=== PATIENT | female | born 1935 | race Caucasian/White ===

== ENCOUNTER → 2016-02-26 | Outpatient (CLI) | payer OTHER, MEDICARE | LOC: BHFA 11:00 | PROVIDERS: ATTEND Internal Medicine | DX: I48.91 Unspecified atrial fibrillation (principal) ==

== ENCOUNTER 2016-04-27 11:46 | Emergency (ER) | payer OTHER, MEDICARE ==
[2016-04-27 11:58] VITALS: O2SAT 96
--- NOTE | 2016-04-27 13:22 | EDPHY ---
H & P Stated Complaint: inj/wound to r leg won't heal Time Seen by Provider: 04/27/16 13:20 HPI/ROS: CHIEF COMPLAINT: Right leg wound HISTORY OF PRESENT ILLNESS: The patient is an 80-year-old female who presents with a wound on her right lower extremity that is not healing. She initially received the wound on March 24 when she closed the car door on her leg. Her sutures were removed early as the wound showed signs of infection and she was placed on a 10 day course of antibiotics that she finished over a 2 weeks ago. Since then the wound has remained uncomfortable, slightly oozing, with surrounding erythema. No fever, chills, chest pain, shortness of breath, palpitations, vomiting, diarrhea, urinary complaints, headache, lightheadedness. REVIEW OF SYSTEMS: Aside from elements discussed in the HPI, a comprehensive 10-point review of systems was reviewed and is negative. PAST MEDICAL HISTORY: PE, Tana's, atrial fibrillation, partial hysterectomy. SOCIAL HISTORY: . VITAL SIGNS: Reviewed by me GENERAL APPEARANCE: Pleasant, conversant, no distress. FOCUSED EXAM OF right lower extremity: 2 cm x 3 cm healing abrasion on the lateral calf. Thick scab present over the abrasion. Slight purulence along the wound edges. Erythema extending 2-3 cm around the wound edge. No edema. Portions of this note were transcribed by a medical secretary. I personally performed a history, physical exam, medical decision making, and confirmed accuracy of information the transcribed note. Source: Patient Exam Limitations: No limitations - Personal History Current Tetanus/Diphtheria Vaccine: Yes - Medical/Surgical History Hx Asthma: No Hx Chronic Respiratory Disease: No Hx Diabetes: Yes Hx Cardiac Disease: Yes Hx Renal Disease: No Hx Cirrhosis: No Hx Alcoholism: No Hx HIV/AIDS: No Hx Splenectomy or Spleen Trauma: No Other PMH: HYSTERECTOMY, PARTIAL OCCLUSION OF LEFT CAROTID ARTERY, PULMONARY EMBOLISM X2, TANA'S DISEASE, Afib - Social History Smoking Status: Never smoked Constitutional: Initial Vital Signs Temperature (C) 36.3 C 04/27/16 11:55 Heart Rate 100 04/27/16 11:55 Respiratory Rate 20 04/27/16 11:55 Blood Pressure 143/90 H 04/27/16 11:55 O2 Sat (%) 96 04/27/16 11:55 O2 Delivery Mode Room Air Allergies/Adverse Reactions: azithromycin [From Zithromax] Allergy (Severe, Verified 04/27/16 11:55) Hives gluten [Gluten] Allergy (Intermediate, Verified 04/27/16 11:55) Other-Enter Comments lactose [Lactose] Allergy (Intermediate, Verified 04/27/16 11:55) Other-Enter Comments latex [Latex] Allergy (Intermediate, Verified 04/27/16 11:55) Rash Penicillins Allergy (Intermediate, Verified 04/27/16 11:55) Rash codeine Allergy (Verified 04/27/16 11:55) Home Medications: Medication Instructions Recorded Levothyroxine [Synthroid 112 mcg 112 mcg PO HS 07/07/13 (*)] Lovastatin 20 mg PO HS 07/07/13 Warfarin Sodium [Coumadin 1MG (*)] 1 mg PO TUTH@07/07/13 Warfarin Sodium [Coumadin 1MG (*)] 3 mg PO SUTUTHFRSA@07/07/13 Metoprolol Tartrate 25 PO DAILY 08/02/15 Doxycycline Hyclate 100 mg PO BID #20 capsule 04/27/16 Medical Decision Making ED Course/Re-evaluation: Patient placed on doxycycline to cover for any type of treatment resistant skin infection. Discussed Mepilex dressing with the patient who would prefer simple gauze dressing. Patient was referred to the [facility]. Differential Diagnosis: Differential diagnoses for the patient's symptom complex was considered including but not limited to healing wound, low-grade infection, osteomyelitis, venous insufficiency. Departure - Departure Disposition: Home, Routine, Self-Care Clinical Impression: Nonhealing nonsurgical wound Condition: Good Instructions: Chronic Wounds (ED), Acute Wounds (ED) Additional Instructions: Take Doxycycline as prescribed. We have called the [facility] for you today requesting they see you this week. Their phone number is . If you have not heard from them by Thursday afternoon, please call them to set up a follow up appointment. They will be able to follow your souza injury provide treatments to assist you in the healing. Return to the emergency department immediately for fever, red streaking, lethargy, or other serious worsening of condition. Referrals: Vidhi Fenton MD [Primary Care Provider] - As per Instructions [facility] [Clinic] - As per Instructions Prescriptions: Doxycycline Hyclate 100 mg PO BID #20 capsule Report Scribed for: Queta Clemente Report Scribed by: [place] Date of Report: 04/27/16 Time of Report: 13:21
[2016-04-27] MEDS ORDERED: BACITRACIN OINTMENT 1 PACKET TP ONE (13:39)
[2016-04-27 14:04] VITALS: BP 143/91; PULSE 86; RESP 16; TEMP 97.7
== END 2016-04-27 14:03 | disposition home or self-care (01) ==
DX: L98.8 Other specified disorders of the skin and subcutaneous tissue (principal); E11.9 Type 2 diabetes mellitus without complications; Z79.01 Long term (current) use of anticoagulants; Z91.040 Latex allergy status

== ENCOUNTER → 2016-05-08 | Outpatient (CLI) | payer OTHER, MEDICARE | LOC: FIMAGING 15:04 | DX: Z12.31 Encounter for screening mammogram for malignant neoplasm of breast (principal); Z80.3 Family history of malignant neoplasm of breast | CPT/HCPCS: G0202 ==

== ENCOUNTER 2016-06-01 09:29 | Emergency (ER) | payer OTHER, MEDICARE ==
[2016-06-01 09:35] VITALS: RESP 18
--- NOTE | 2016-06-01 09:45 | EDPHY ---
H & P Stated Complaint: CHEST PRESSURE/FELT SAME WITH PRIOR PE Time Seen by Provider: 06/01/16 09:45 - Personal History Current Tetanus/Diphtheria Vaccine: Yes - Medical/Surgical History Hx Asthma: No Hx Chronic Respiratory Disease: No Hx Diabetes: Yes Hx Cardiac Disease: Yes Hx Renal Disease: No Hx Cirrhosis: No Hx Alcoholism: No Hx HIV/AIDS: No Hx Splenectomy or Spleen Trauma: No Other PMH: HYSTERECTOMY, PARTIAL OCCLUSION OF LEFT CAROTID ARTERY, PULMONARY EMBOLISM X2, MARIVEL'S DISEASE, Afib - Social History Smoking Status: Never smoked Constitutional: Initial Vital Signs Temperature (C) 36.3 C 06/01/16 09:32 Heart Rate 90 06/01/16 09:32 Respiratory Rate 18 06/01/16 09:32 Blood Pressure 106/65 06/01/16 09:32 O2 Sat (%) 95 06/01/16 09:32 O2 Delivery Mode Room Air O2 (L/minute) 2 Allergies/Adverse Reactions: azithromycin [From Zithromax] Allergy (Severe, Verified 06/01/16 09:30) Hives gluten [Gluten] Allergy (Intermediate, Verified 06/01/16 09:30) Other-Enter Comments lactose [Lactose] Allergy (Intermediate, Verified 06/01/16 09:30) Other-Enter Comments latex [Latex] Allergy (Intermediate, Verified 06/01/16 09:30) Rash Penicillins Allergy (Intermediate, Verified 06/01/16 09:30) Rash codeine Allergy (Verified 06/01/16 09:30) TAPE Allergy (Uncoded 06/01/16 10:54) Home Medications: Medication Instructions Recorded Levothyroxine [Synthroid 112 mcg 112 mcg PO HS 07/07/13 (*)] Lovastatin 20 mg PO HS 07/07/13 Warfarin Sodium [Coumadin 1MG (*)] 1 mg PO TUTH@07/07/13 Warfarin Sodium [Coumadin 1MG (*)] 3 mg PO SUTUTHFRSA@07/07/13 Metoprolol Tartrate 25 PO DAILY 08/02/15 Furosemide [Lasix 20 MG (*)] 20 mg PO DAILY #3 tab 06/01/16 Medical Decision Making - Diagnostics Imaging: Imaging Impressions Chest X-Ray 06/01/16 10:35 Impression: 1. No acute process. 2. Minimal cardiomegaly and chronic airways disease unchanged. ED Course/Re-evaluation: CHIEF COMPLAINT: Dyspnea, chest pain HISTORY OF PRESENT ILLNESS: The patient is an anticoagulated 80 y/o female arriving with her complaining of difficulty breathing onset last night and chest pressure this morning. She has a history of PEs and reports her symptoms today feel exactly the same as her previous presentation. She does not have a diagnosed clotting disorder and believes they were due once to being sedentary and another time to excessive vomiting. No recent illness, surgery, trauma, or travel. She does have an ongoing deep wound on leg followed by wound care clinic since February this year. REVIEW OF SYSTEMS: A 10 point review of systems was performed and is negative with the exception of the elements mentioned in the history of present illness. PHYSICAL EXAM: HR, BP, O2 Sat, RR. Temp noted General Appearance: Alert, well hydrated, appropriate, and non-toxic appearing. Sitting up, laughing, no respiratory distress. Head: Atraumatic without scalp tenderness or obvious injury Eyes: Pupils equal, round, reactive to light and accommodation, EOMI, no trauma , no injection. Ears: Clear bilaterally, no perforation, normal landmarks Nose: Atraumatic, no rhinorrhea, clear. Throat: There is no erythema or exudates, no lesions, normal tonsils, mucus membranes moist. Neck: Supple, nontender, no lymphadenopathy. Respiratory: No retractions, no distress, no wheezes, and no accessory muscle use. Lungs have rales at bases. Cardiovascular: Regular rate and rhythm, no murmurs, rubs, or gallops. Good capillary refill all extremities. Gastrointestinal: Abdomen is soft, nontender, non-distended, no masses, no rebound, no guarding, no peritoneal signs. Musculoskeletal: Normal active ROM of all extremities, atraumatic. Dressed wound on right leg. Neurological: Alert, appropriate, and interactive. Nonfocal neuro exam. Skin: No rashes, good turgor, no nodules on palpation. Past medical history: PEs and atrial fibrillation - Coumadin Past surgical history: denies cardiac catheterization Family history: noncontributory Social history: , at bedside. DIAGNOSTICS/PROCEDURES/CRITICAL CARE TIME: The 12 lead EKG was interpreted by myself. See hard copy and/or "tracemaster" electronic copy for interpretation. I viewed the images myself on the PACS system. DIFFERENTIAL DIAGNOSIS: The differential diagnosis for the patient's shortness of breath and hypoxemia included but was not limited to pneumonia, myocardial infarction, acute mountain sickness, high altitude pulmonary edema, congestive heart failure, and pulmonary embolus. MEDICAL DECISION MAKING: This is an 80 y/o female with a history of PEs and atrial fibrillation presenting with a 1-day history of chest pressure and dyspnea that feels similar to her previous PEs. She denies systemic symptoms, recent illness, or other obvious precipitating factors. She is active and laughing on exam. She has minor rales at lung bases without focal decrease. Plan for PE rule-out with EKG, IV, and labs including d-dimer, troponin, and BNP. D-dimer and troponin are negative. Her BNP is elevated and her INR is therapeutic, which decreases her risk of emboli further. Combined with rales on lung exam and elevated BNP, this is more likely CHF. I reassessed the patient and discussed these findings. Plan for chest x-ray. Chest x-ray shows cardiomegaly and scoliosis. Reassessed patient. She is resting comfortably with no signs of respiratory distress; she is 97% on room air. I discussed findings with the patient and recommended starting Lasix for probable CHF and following up with her senior core java developer this week. She agrees with plan. Return precautions given. 1115: Consulted with Dr. Baldwin, cardiology. He agrees with my assessment and will see her this week as an outpatient. - Data Points Laboratory Results: Laboratory Results 06/01/16 09:44 06/01/16 09:44 06/01/16 06/01/16 06/01/16 09:44 09:44 09:44 WBC 5.74 10^3/uL 10^3/uL (3.80-9.50) RBC 4.92 10^6/uL 10^6/uL (4.18-5.33) Hgb 15.6 g/dL g/dL (12.6-16.3) Hct 46.7 % % (38.0-47.0) MCV 94.9 fL fL (81.5-99.8) MCH 31.7 pg pg (27.9-34.1) MCHC 33.4 g/dL g/dL (32.4-36.7) RDW 13.4 % % (11.5-15.2) Plt Count 155 10^3/uL 10^3/uL (150-400) MPV 12.4 fL H fL (8.7-11.7) Neut % (Auto) 59.9 % % (39.3-74.2) Lymph % (Auto) 28.4 % % (15.0-45.0) Guthrie % (Auto) 8.0 % % (4.5-13.0) Eos % (Auto) 2.6 % % (0.6-7.6) Baso % (Auto) 0.9 % % (0.3-1.7) Nucleat RBC Rel Count 0.0 % % (0.0-0.2) Absolute Neuts (auto) 3.44 10^3/uL 10^3/uL (1.70-6.50) Absolute Lymphs (auto) 1.63 10^3/uL 10^3/uL (1.00-3.00) Absolute Monos (auto) 0.46 10^3/uL 10^3/uL (0.30-0.80) Absolute Eos (auto) 0.15 10^3/uL 10^3/uL (0.03-0.40) Absolute Basos (auto) 0.05 10^3/uL 10^3/uL (0.02-0.10) Absolute Nucleated RBC 0.00 10^3/uL 10^3/uL (0-0.01) Immature Gran % 0.2 % % (0.0-1.1) Immature Gran # 0.01 10^3/uL 10^3/uL (0.00-0.10) PT 28.4 SEC H SEC (12.0-15.0) INR 2.63 H (0.83-1.16) APTT 34.4 SEC SEC (23.0-38.0) D-Dimer < 0.27 ug/mLFEU ug/mLFEU (0.00-0.50) Sodium 143 mEq/L mEq/L (134-144) Potassium 3.9 mEq/L mEq/L (3.5-5.2) Chloride 105 mEq/L mEq/L (97-110) Carbon Dioxide 28 mEq/l mEq/l (22-31) Anion Gap 10 mEq/L mEq/L (8-16) BUN 20 mg/dL mg/dL (7-23) Creatinine 0.8 mg/dL mg/dL (0.6-1.0) Estimated GFR > 60 Glucose 77 mg/dL mg/dL (70-100) Calcium 9.4 mg/dL mg/dL (8.5-10.4) Troponin I < 0.012 ng/mL ng/mL (0-0.034) NT-Pro-B Natriuret Pep 2070 pg/mL H pg/mL (0-450) Departure - Departure Disposition: Home, Routine, Self-Care Clinical Impression: Congestive heart failure Qualifiers: Congestive heart failure type: unspecified congestive heart failure type Congestive heart failure chronicity: acute Qualified Code(s): I50.9 - Heart failure, unspecified Condition: Good Instructions: Heart Failure (ED) Additional Instructions: 1. Follow up with your senior core java developer this week. 2. Take Lasix as prescribed until directed otherwise by your senior core java developer. 3. Return to the ED for any worsening of condition. Referrals: Vidhi Fenton MD [Primary Care Provider] - As per Instructions Fariba Panda MD [Medical Doctor] - As per Instructions Prescriptions: Furosemide [Lasix 20 MG (*)] 20 mg PO DAILY #3 tab Report Scribed for: Matthieu Gee Report Scribed by: Lila Beaver Date of Report: 06/01/16 Time of Report: 09:58
--- NOTE | 2016-06-01 09:50 | CPEKG ---
Heart Rate: 87 RR Interval: 690 QRSD Interval: 86 QT Interval: 348 QTC Interval: 419 QRS [place]: 85 T Wave [place]: -10 EKG Severity - ABNORMAL ECG - EKG Impression: ATRIAL FIBRILLATION, V-RATE 72-109 EKG Impression: BORDERLINE RIGHT AXIS DEVIATION Electronically Signed By: Claudia Helm 01-Jun-2016 19:40:00
[2016-06-01 10:00] LABS: % IMMATURE GRANULYOCYTES 0.2 % (0.0-1.1); ABSOLUTE IMMATURE GRANULOCYTES 0.01 10^3/uL (0.00-0.10); ADD DIFF? NO; ADD MORPH? NO; ADD SCAN? NO; ATYPICAL LYMPHOCYTE FLAG 0 (0-99); FRAGMENT RBC FLAG 0 (0-99); HEMATOCRIT 46.7 % (38.0-47.0); HEMOGLOBIN 15.6 g/dL (12.6-16.3); LEFT SHIFT FLG 0 (0-99); LIPEMIA HEMOLYSIS FLAG 80 (0-99); MEAN CELL HEMOGLOBIN 31.7 pg (27.9-34.1); MEAN CELL HEMOGLOBIN CONCENTR. 33.4 g/dL (32.4-36.7); MEAN CELL VOLUME 94.9 fL (81.5-99.8); MEAN PLATELET VOLUME 12.4 fL (8.7-11.7); PLATELET CLUMPS FLAG 0 (0-99); PLATELET COUNT 155 10^3/uL (150-400); RED BLOOD CELL COUNT 4.92 10^6/uL (4.18-5.33); RED CELL DISTRIBUTION WIDTH 13.4 % (11.5-15.2)
[2016-06-01 10:10] LABS: ANION GAP 10 mEq/L (8-16); APTT 34.4 SEC (23.0-38.0); CALCIUM 9.4 mg/dL (8.5-10.4); CARBON DIOXIDE 28 mEq/l (22-31); CHLORIDE 105 mEq/L (97-110); CREATININE 0.8 mg/dL (0.6-1.0); GLOMERULAR FILTRATION RATE > 60; GLUCOSE 77 mg/dL (70-100); INR 2.63 (0.83-1.16); POTASSIUM 3.9 mEq/L (3.5-5.2); PROTIME(PATIENT) 28.4 SEC (12.0-15.0); SODIUM 143 mEq/L (134-144)
[2016-06-01 10:22] LABS: TROPONIN I < 0.012 ng/mL (0-0.034)
[2016-06-01 11:46] VITALS: BP 144/92; PULSE 92; TEMP 97.5; O2SAT 97
== END 2016-06-01 11:46 | disposition home or self-care (01) ==
DX: I50.9 Heart failure, unspecified (principal); E11.9 Type 2 diabetes mellitus without complications; Z79.01 Long term (current) use of anticoagulants; Z91.040 Latex allergy status

== ENCOUNTER → 2016-06-11 | Outpatient (CLI) | payer OTHER, MEDICARE | LOC: BHFA 15:30 | PROVIDERS: ATTEND Internal Medicine Cardiovascular Disease | DX: I08.0 Rheumatic disorders of both mitral and aortic valves (principal); I48.91 Unspecified atrial fibrillation ==

== ENCOUNTER → 2016-06-16 | Outpatient (CLI) | payer OTHER, MEDICARE | LOC: BHFA 08:30 | PROVIDERS: ATTEND Internal Medicine Interventional Cardiology | DX: I48.91 Unspecified atrial fibrillation (principal) | CPT/HCPCS: 78452; 93017; A9500 ==

== ENCOUNTER → 2016-07-11 | Outpatient (CLI) | payer OTHER, MEDICARE | LOC: FIMAGING 13:31 | PROVIDERS: ATTEND Family Medicine | DX: R05 Cough (principal) ==

== ENCOUNTER → 2016-08-28 | Outpatient (CLI) | payer OTHER, MEDICARE | LOC: FLAB 13:42 → FIMAGING 13:44 → EDSTATUS 13:44 | PROVIDERS: ATTEND Registered Nurse | DX: I51.7 Cardiomegaly (principal) ==

== ENCOUNTER → 2016-12-31 | Day surgery (SDC) | payer OTHER, MEDICARE ==
[~2016-12-31] MED LIST: LIDO/EPI 1% **for epidural** 30 ML SDV ONE
== END | disposition home or self-care (01) ==
LOC: FIMAGING 12:18
PROVIDERS: ATTEND Radiology Diagnostic Radiology
PROC: 065P3ZZ Destruction of Right Saphenous Vein, Percutaneous Approach (ICD-10-PCS; principal; 2016-12-31)
DX: I83.91 Asymptomatic varicose veins of right lower extremity (principal)

== ENCOUNTER 2017-01-27 08:39 | Inpatient (IN) | payer OTHER, MEDICARE ==
--- NOTE | 2017-01-19 17:11 | GHP ---
[f rep st] PREOP HISTORY AND PHYSICAL Amended report DATE OF ADMISSION: She will be a morning admission for surgery at the hospital on January 27, 2017. PROBLEM: Right knee arthritis. HISTORY OF PRESENT ILLNESS: The patient is an 81-year-old woman admitted for a right total knee arthroplasty. She has had progressive pain in her right knee for the past 2 or 3 years. She has undergone multiple injections with viscosupplementation with diminishing benefits. She is now having consistent severe pain in her knee. It is limiting her activities and function. She has failed nonsurgical treatment. She is admitted for a right total knee arthroplasty. PAST MEDICAL HISTORY: She has a history of atrial fibrillation. She has also had pulmonary emboli on 2 occasions. She is on chronic anticoagulation with Coumadin. Dr. Abraham Baldwin is her product handler. CURRENT MEDICATIONS: 1. Coumadin 1 mg per day alternating with 2 mg every other day. Her most recent INR was 2.5. 2. She is also on lovastatin for cholesterol. 3. Lasix 20 mg per day. 4. She takes eye drops daily for glaucoma. DRUG ALLERGIES: Codeine, penicillin, and Zithromax. SOCIAL HISTORY: She does not smoke cigarettes. She is retired. She is and lives with her . FAMILY HISTORY: Positive for bladder cancer in her mother. PHYSICAL EXAMINATION: GENERAL: She is an alert, healthy-appearing elderly woman. VITAL SIGNS: Height is 5 feet 4 inches. Weight 124 pounds. BMI is 21.3. EYES: The pupils are round and reactive. She has had bilateral cataract surgery with lens implants. MOUTH: Good oral hygiene. CHEST: Clear. HEART: Mildly irregular rhythm. MUSCULOSKELETAL: Exam of her right knee shows a small effusion. Full extension to 110 degrees of flexion. She is tender along the medial joint line. Mild patellofemoral crepitation. Her ligaments are stable. IMAGING STUDIES: Her films show advanced medial compartment degenerative arthritis. She is bone on bone in the medial compartment and has mild varus alignment. IMPRESSION ON ADMISSION: 1. Right knee advanced medial compartment degenerative arthritis with varus deformity. 2. History of pulmonary emboli x2. 3. Treatment for atrial fibrillation. 4. Treatment for elevated cholesterol. PLAN: She will undergo a right total knee arthroplasty. The surgery has been described to her, including the risks, complications, expectations, and recovery time. All her questions have been answered, and she consents to surgery. I have advised her that a small percentage of people do not get a good result with a total knee replacement. I have spoken with Dr. Baldwin. He recommends bridge therapy to cover that period of time when she is off her Coumadin in preparation for her surgery. I will use Lovenox 50 mg twice daily. All her questions have been answered, and she consents to surgery. /[id number]/MODL Add acc# 01/26/17, lakeisha SANDOVAL
--- NOTE | 2017-01-27 08:10 | PDANEPAE ---
ANE History of Present Illness 81 year old female w/ PMHx of Sana Howell (anticoagulated on Warfarin, held 5 days and bridged with lovenox), CAD, MR, TR, documented past CHF, hashimotos and history of PE presents for right total knee arthroplasty. ANE Past Medical History - Cardiovascular History Hx Hypertension: No Hx Arrhythmias: No Hx Chest Pain: No Hx Coronary Artery / Peripheral Vascular Disease: No Hx CHF / Valvular Disease: No Hx Palpitations: No Cardiovascular History Comment: afib. cad. mitral regurg- heart murmur. tricupsid regurgitation. vavlular insufficiency. peripheral venous insufficiency. see's dr inman at [facility] - Pulmonary History Hx COPD: No Hx Asthma/Reactive Airway Disease: No Hx Recent Upper Respiratory Infection: No Hx Oxygen in Use at Home: No Hx Sleep Apnea: No Sleep Apnea Screening Result - Last Documented: Negative Pulmonary History Comment: PNEUMONIA 05/2013. PE X 2 LAST 2002 & 2011 - Neurologic History Hx Cerebrovascular Accident: No Hx Seizures: No Hx Dementia: No Neurologic History Comment: ?TIA VS MIGRAINE 06/2013 - Endocrine History Hx Diabetes: Yes Hypothyroid: Yes Hyperthyroid: No Obesity: no Endocrine History Comment: MARIEVL'S - Renal History Hx Renal Disorders: No - Liver History Hx Hepatic Disorders: No - Neurological & Psychiatric Hx Hx Neurological and Psychiatric Disorders: No - Cancer History Hx Cancer: Yes Cancer History Comment: SKIN - Congenital Disorder History Hx Congenital Disorders: No - GI History GERD: no Hx Gastrointestinal Disorders: Yes Gastrointestinal History Comment: LACTOSE AND GLUTENT INTOL - Other Health History Other Health History: INSOMNIA. CHRONIC FATIQUE RELATED TO PNEUMONIA 2011. GLAUCOMA/MAC DEGENERATION. cataract - Chronic Pain History Chronic Pain: Yes (LT ING HERNIA) - Surgical History Prior Surgeries: HYSTERECTOMY WITH BLADDER SUSPENSION AND REPAIR OF COLON ANE Review of Systems Review of systems is: negative Review of Systems: - Exercise capacity Exercise capacity: >=4 METS METS (RN): 4 METS ANE Patient History - Allergies Allergies/Adverse Reactions: azithromycin [From Zithromax] Allergy (Severe, Verified 12/29/16 16:14) Hives gluten [Gluten] Allergy (Intermediate, Verified 12/29/16 16:14) Other-Enter Comments lactose [Lactose] Allergy (Intermediate, Verified 12/29/16 16:14) Other-Enter Comments latex [Latex] Allergy (Intermediate, Verified 12/29/16 16:14) Rash Penicillins Allergy (Intermediate, Verified 12/29/16 16:14) Rash codeine Allergy (Verified 12/29/16 16:05) she thinks she does- had a reaction one time TAPE Allergy (Uncoded 12/29/16 16:05) all tapes except for paper tape- causes blisters - Home Medications Home medications: home medication list seen and reviewed Home Medications: C/E/Zn/Cu/OM3/DHA/EPA/LUT/ZEAX [Preservision Areds 2 Softgel] 1 cap PO BID 12/22 [Last Taken 2 Weeks Ago ~01/13/17] Furosemide [Lasix 20 MG (*)] 20 mg PO DAILY 12/22/16 [Last Taken 01/24/17] Latanoprost 0.005% [Xalatan 0.005% (*)] 1 drops EACHEYE HS 12/22/16 [Last Taken 01/27/17 08:00] Levothyroxine Sodium 112 mcg PO DAILY 12/22/16 [Last Taken 01/27/17 08:00] Lovastatin 20 mg PO DAILY 12/22/16 [Last Taken 01/26/17 19:00] Warfarin Sodium [Coumadin 1MG (*)] 2 mg PO SUTUTHSA 12/22/16 [Last Taken ] Warfarin Sodium [Coumadin 3MG (*)] 1 mg PO MWF 12/22/16 [Last Taken 01/22/17] Acyclovir [Zovirax 400 mg (*)] 1,200 mg PO ONCE PRN 01/22/17 [Last Taken Unknown ] Cholecalciferol Vit D3 [Vitamin D3 (*)] 1,000 units PO DAILY 01/22/17 [Last Taken 2 Weeks Ago ~01/13/17] Diclofenac Sodium 1% [Voltaren Gel (*)] 1 an TP QID PRN 01/22/17 [Last Taken 2 Weeks Ago ~01/13/17] Herbals/Supplements -Info Only 1 ea PO DAILY 01/22/17 [Last Taken 2 Weeks Ago ~ 01/13/17] Metoprolol Succinate Xr [Toprol Xl 25 mg (*)] 25 mg PO BID 01/22/17 [Last Taken 01/27/17 08:00] - NPO status NPO Status: no food or drink >8 hours - Anes Hx Anes Hx: no prior problems - Smoking Hx Smoking Status: Never smoked Marijuana use: No - Alcohol Use Alcohol Use: Rarely - Family Anes Hx Family Anes Hx: neg - N/A Family Hx Anesthesia Complications: none ANE Labs/Vital Signs - Labs Result Diagrams: 01/27/17 09:20 - Vital Signs Vital Signs: reviewed preoperatively; see RN documention for details Height: 162.56 cm Weight: 54.431 kg ANE Physical Exam - Airway Neck exam: FROM Mallampati Score: Class 2 Mouth exam: normal dental/mouth exam - Pulmonary Pulmonary: no respiratory distress - Cardiovascular Cardiovascular: regular rate and rhythym - ASA Status ASA Status: III ANE Anesthesia Plan Anesthesia Plan: general endotracheal anesthesia, GA w LMA (General Anesthesia as "back-up" plan), MAC, spinal Regional Anesthesia: single shot NB, continuous NB, adductor canal FNB, POPC/PSR Total IV Anesthesia: No
[~2017-01-27 08:39] MED LIST changes: -LIDO/EPI 1% **for epidural** 30 ML SDV ONE; +NS IV ONE; +POVIDONE-IODINE 20 ML in SODIUM CL IRRIG SOLUTION 500 ML IRR ONE; +ROPIVACAINE 0.2% 80 MG, EPINEPHrine 0.2 MG, KETOROLAC TROMETHAMINE 30 MG in BAG 0 ML IU ONE; +TRANEXAMIC ACID IV ONE; +VANCOMYCIN 1 GM VIAL ONE; +VANCOMYCIN 750 MG in D5W 150 ML IV ONE; +VANCOMYCIN PHARMACY TO DOSE MISC ONE; +ceFAZolin 1 GM/5 ML SYR ONE
[2017-01-27] MEDS ORDERED: LR 1,000 ML IV ONE (08:57)
[2017-01-27] MEDS ORDERED: ACETAMINOPHEN 325 MG TAB PO ONE (09:28)
[2017-01-27] MEDS ORDERED: FAMOTIDINE 20 MG TAB PO ONE (09:28)
[2017-01-27] MEDS ORDERED: DEXAMETHASONE 4 MG/ML VIAL IVP ONE (09:28)
--- NOTE | 2017-01-27 09:33 | PDHPUP ---
History & Physical Update H&P update statement: This history and physical update is based on an assessment of the patient which was completed after admission or registration (within 24 hours), but prior to the surgery/procedure. H&P update: H&P reviewed & patient examined, no change in patient's condition since H&P completed
[2017-01-27 09:35] LABS: % IMMATURE GRANULYOCYTES 0.3 % (0.0-1.1); ABSOLUTE IMMATURE GRANULOCYTES 0.02 10^3/uL (0.00-0.10); ADD DIFF? NO; ADD MORPH? NO; ADD SCAN? NO; ATYPICAL LYMPHOCYTE FLAG 20 (0-99); FRAGMENT RBC FLAG 0 (0-99); HEMOGLOBIN 14.3 g/dL (12.6-16.3); LEFT SHIFT FLG 0 (0-99); LIPEMIA HEMOLYSIS FLAG 80 (0-99); MEAN CELL HEMOGLOBIN 31.8 pg (27.9-34.1); MEAN CELL HEMOGLOBIN CONCENTR. 33.3 g/dL (32.4-36.7); MEAN CELL VOLUME 95.6 fL (81.5-99.8); MEAN PLATELET VOLUME 11.8 fL (8.7-11.7); PLATELET CLUMPS FLAG 10 (0-99); PLATELET COUNT 135 10^3/uL (150-400); RED CELL DISTRIBUTION WIDTH 13.8 % (11.5-15.2)
[2017-01-27 09:57] LABS: INR 1.21 (0.83-1.16); PROTIME(PATIENT) 15.5 SEC (12.0-15.0)
[2017-01-27] MEDS ORDERED: MIDAZOLAM 2 MG/2 ML VIAL ONE (10:17)
[2017-01-27] MEDS ORDERED: MIDAZOLAM 2 MG/2 ML VIAL IVP ONE (10:18)
[2017-01-27] MEDS ORDERED: PROPOFOL/EMULSION 500 MG/50 ML BOTTLE IV ONE (10:20)
[2017-01-27] MEDS ORDERED: VANCOMYCIN 1 GM VIAL ONE (10:30)
[2017-01-27] MEDS ORDERED: fentaNYL 100 MCG/2 ML INJ ONE ×2 (10:54→11:09)
[2017-01-27] MEDS ORDERED: LIDOCAINE 2% 5 ML SDV ONE ×3 (11:08→11:11)
[2017-01-27] MEDS ORDERED: ROCURONIUM 50 MG/5 ML VIAL ONE ×2 (11:08→11:11)
[2017-01-27] MEDS ORDERED: ONDANSETRON 4 MG/2 ML VIAL IVP PRN ×2 (11:14→12:23)
[2017-01-27] MEDS ORDERED: NALOXONE HCL 0.4 MG/ML INJ IVP PRN (11:14)
[2017-01-27] MEDS ORDERED: fentaNYL 100 MCG/2 ML INJ IVP PRN (11:14)
[2017-01-27] MEDS ORDERED: OXYCODONE/APAP 5/325 TAB PO PRN (11:14)
[2017-01-27] MEDS ORDERED: LABETALOL HCL 5 MG/ML 20 ML MDV IVP PRN (11:14)
[2017-01-27] MEDS ORDERED: HYDROmorphONE/DILAUDID 1 MG/ML INJ IVP PRN (11:14)
[2017-01-27] MEDS ORDERED: ROPIVACAINE HCL 150 MG/30 ML INJ ONE (11:37)
--- NOTE | 2017-01-27 12:11 | POSTOPPROG ---
Post Op Note Date of Operation: 01/27/17 Surgeon: Kiet Blanchard Clinical Investigator: Annabelle Yousif Anesthesiologist: Dr. Freddy Jackman Anesthesia: GET(General Endotracheal), Other (Specify) Post-op Diagnosis: Right knee arthritis Procedure: Right total knee arthroplasty Inf/Abcess present in the surg proc area at time of surgery?: No EBL: 100-500 (Adductor canal block administered postoperatively.)
[2017-01-27] MEDS ORDERED: PROMETHAZINE HCL 25 MG SUPPR PR PRN (12:23)
[2017-01-27] MEDS ORDERED: METOCLOPRAMIDE 10 MG/2 ML VIAL IVP PRN (12:23)
[2017-01-27] MEDS ORDERED: ONDANSETRON DISINTEGRATING 4 MG TAB PO PRN (12:23)
[2017-01-27] MEDS ORDERED: DIPHENOXYLATE/ATROPINE LOMOTIL 1 TAB PO PRN (12:23)
[2017-01-27] MEDS ORDERED: PROMETHAZINE HCL 25 MG/ML INJ IVP PRN (12:23)
[2017-01-27] MEDS ORDERED: LACTULOSE 20 GM/30 ML UDCUP PO PRN (12:23)
[2017-01-27] MEDS ORDERED: TAPENTADOL HCL 50 MG TAB PO PRN (12:23)
[2017-01-27] MEDS ORDERED: NS 500 ML IV PRN (12:23)
[2017-01-27] MEDS ORDERED: TEMAZEPAM 15 MG CAP PO PRN (12:23)
[2017-01-27] MEDS ORDERED: POLYETHYLENE GLYCOL 3350 17 GM PKT PO PRN (12:23)
[2017-01-27] MEDS ORDERED: MAGNESIUM HYDROXIDE 30 ML UDCUP PO PRN (12:23)
[2017-01-27] MEDS ORDERED: diphenhydrAMINE 25 MG CAP PO PRN (12:23)
[2017-01-27] MEDS ORDERED: BISACODYL 10 MG SUPP PR PRN (12:23)
[2017-01-27] MEDS ORDERED: ACYCLOVIR 400 MG TAB PO PRN (12:29)
[2017-01-27] MEDS ORDERED: LR 1,000 ML IV SCH (12:30)
[2017-01-27] MEDS ORDERED: LABETALOL HCL 5 MG/ML 20 ML MDV ONE (12:56)
--- NOTE | 2017-01-27 14:06 | POSTANESTH ---
Post Anesthetic Evaluation Cardiovascular Status: Normal, Stable, Similar to Pre-Op Cond Respiratory Status: Normal, Stable, Similar to Pre-op Cond. Level of Consciousness/Mental Status: Can Participate in Eval, Alert and Oriented Pain Control: Adequate, Prn Tx Ordered Nausea/Vomiting Control: Adequate, Prn Tx Ordered Complications Possibly Related to Anesthesia: None Noted
[2017-01-27] MEDS ORDERED: KETOROLAC 30 MG/1 ML SDV ONE (14:08)
[2017-01-27] MEDS: KETOROLAC 30 MG/1 ML SDV IVP PRN (14:10)
[2017-01-27] MEDS: traMADol 50 MG TAB PO PRN (15:04)
[2017-01-27] MEDS: CYCLOBENZAPRINE 10 MG TAB PO PRN (15:08)
[2017-01-27] MEDS ORDERED: WARFARIN SODIUM 2 MG TAB PO SCH (16:00)
[2017-01-27] MEDS: ACETAMINOPHEN 325 MG TAB PO SCH (17:34)
[2017-01-27] MEDS: FAMOTIDINE 20 MG TAB PO SCH (20:31)
[2017-01-27] MEDS: METOPROLOL SUCCINATE XR 25 MG TAB PO SCH (20:32)
[2017-01-27] MEDS: SENNOSIDES/DOCUSATE SODIUM TAB PO SCH (20:33)
--- NOTE | 2017-01-27 20:56 | GOP ---
[f rep st] OPERATIVE REPORT DATE OF OPERATION: 01/27/2017 SURGEON: Kiet Blanchard MD NEUROSURGEON: Dr. Blanchard. [employer]ATION TEACHER: RICH Stanton and Lyndon Yousif [facility]. ANESTHESIA: General anesthesia and adductor canal block. ANESTHESIOLOGIST: Aurelio Jackman MD PREOPERATIVE DIAGNOSIS: Right knee degenerative arthritis. POSTOPERATIVE DIAGNOSIS: Right knee degenerative arthritis. PROCEDURE PERFORMED: Right total knee arthroplasty, cemented, Golden and Nephew Journey II, posterior stabilized. FINDINGS: ESTIMATED BLOOD LOSS: Following inflation of the tourniquet was about 100 cc. The sponge and needle count were correct on 2 occasions. While still under general anesthesia, Dr. Jackman performed an adductor canal block. She was then selena kened from anesthesia, transferred to her hospital [facility] and taken to PACU in satisfactory condition . There were no recognized intraoperative complications. Freddy Roberts and Lyndon Yousif acted as surgical assistants. Their assistance was a medical necess ity. DESCRIPTION OF PROCEDURE: The patient was given 1 g of vancomycin preoperatively within 60 minutes o f surgery. She also received IV tranexamic acid at a dose of 10 mg/kg. She was placed on the operat ing room table and Dr. Jackman attempted a spinal anesthetic. This was unsuccessful. She was placed supine and given general anesthesia. A Godoy catheter was not used. She wore a JOEL stocking and SCD on the nonoperative leg. Her right lower extremity was prepped with ChloraPrep from the upper thigh tourniquet to the tips of the toes. It was draped free using sterile sheets, stockinette, and Ioban plastic adhesive drape. Her lower leg was wrapped with compressive Coban. The leg was exsanguinate d with elevation and a 6-inch compressive wrap, and the pneumatic tourniquet was inflated to 250 mmHg . The World Health Organization time-out was performed to verify the correct patient, identity and the correct surgical side and site. The Pike time-out was also performed. The [employer] leg holding device was sterilely attached to the operating room table and used throughout the procedure to help position the knee. A straight midline incision was made centered on the patell a. Subcutaneous tissues were sharply divided, and hemostasis was obtained using electrocautery. A m edial subcutaneous flap was developed, and the capsule and synovium were opened in a medial parapatel lar fashion. Extensive degenerative changes were present in her medial compartment. She was eroded down to subchondral bone. The medial capsule and periosteum were elevated off the rim of the medial tibial plateau all the way around to the posteromedial corner. Her medial collateral ligament was re leased enough to balance the medial side of the knee and correct the mild varus deformity. In order to improve exposure, her patella was prepared 1st. The original thickness of the patella wa s measured. Peripheral osteophytes were removed. I cut a flat surface on the back of the patella. Her patella was sized for a 35 mm resurfacing component. I removed enough bone from the patella such that the remaining bone plus the thickness of the patellar component recreated the original thicknes s of the patella. The composite thickness was 21 mm. The intramedullary alignment guide system was used to set up the distal femoral cut. The distal femu r was cut in 5 degrees of valgus. Because of a 10 degree preoperative flexion contracture, I made a +2 mm cut on the distal femur. The sizing jig was used to determine proper femoral sizing. She was a true size 4 without shifting the jig. The 5-in-1 cutting block was applied, and the anterior and p osterior condylar cuts and chamfer cuts were made. The final jig was used to remove the central port ion of the distal femur to accommodate the posterior stabilized femoral component. I was careful to determine proper rotation by referencing off Whitesides line and other bony landmarks. Each cut was checked for accuracy before and after it was made. The femur was sized for a size 4 posterior stabil ized femoral component. Trial component was tapped securely into place and was an excellent fit. Next, the tibia was prepared. The proximal tibial cut was made using the extramedullary alignment gu jose system. The cut was made in a few degrees of posterior slope. I was careful to achieve proper v arus valgus alignment and proper rotation. The posterior compartment was cleared of meniscal remnant s. Osteophytes were removed from the back of her femoral condyles. I checked the flexion and extens ion gaps, and they were equal, balanced and rectangular. The tibia was sized for a size 3 component. With the trial components in place, I selected a 10 mm polyethylene posterior stabilized tibial ins ert. The knee came to full extension flexed to 125 degrees. The collateral ligaments were stable an d balanced in 90 degrees of flexion and full extension. The trial patellar button was applied, and t racking was checked. Tracking was excellent without any digital pressure. Joint anesthetic cocktail, 40 mL, were injected into the posterior capsule, the periarticular structu res, the quadriceps muscle and tendon areas, and the subcutaneous tissues along the skin edges. A 2n d dose of IV tranexamic acid was given at a dose of 10 mg/kg. The surfaces were prepared for cementing. They were carefully cleaned with the pulsating lavage irri gation and thoroughly dried. The CarboJet device was used to blow dry the cancellous surfaces. A do uble batch of high viscosity methylmethacrylate cement with 2 g of powdered vancomycin added was mixe d. While it was still in a semi-liquid state, all 3 components were cemented in place. Excess cemen t was removed before it hardened. The 10 mm trial tibial insert was re-tried and was the proper thickness. The actual component was in serted locked into place. The knee was thoroughly irrigated 1 final time with a dilute Betadine solu tion. The tourniquet was deflated. Total tourniquet time was 44 minutes. The vastus medialis portion of the extensor mechanism was repaired with a couple of interrupted figur e-of-eight #2 FiberWire sutures. The capsule and synovium were closed 1st with multiple interrupted [id number] PDS sutures, followed by a running #2 barbed Ethicon Stratafix PDO suture. Subcuta neous tissues were closed with a running 0 barbed Ethicon Stratafix Monoderm suture. The skin was cl osed with a running 3-0 barbed Ethicon Stratafix Monoderm subcuticular suture. The skin was sealed w ith 1/2-inch Steri-Strips. The wound was covered with a large water proof Mepilex surgical dressing. A long-leg JOEL stocking and SCD were applied followed by the cooling device. The patient wore a st ocking and SCD on the opposite leg during the procedure. I used a size 4 cemented Oxinium posterior stabilized femoral component, a size 3 cemented tibial bas e plate, a 10 mm posterior stabilized tibial insert and a 35 mm cemented round all-polyethylene resur facing patellar component. /[id number]/MODL
[2017-01-27] MEDS ORDERED: LATANOPROST 0.005% 2.5 ML OPHT DROPS EACHEYE SCH (21:00)
[2017-01-28] MEDS: ACETAMINOPHEN 325 MG TAB PO SCH ×2 (00:12→06:11)
[2017-01-28 03:53] VITALS: RESP 16; O2SAT 94
[2017-01-28 05:12] LABS: HEMOGLOBIN 12.2 g/dL (12.6-16.3)
[2017-01-28] MEDS: traMADol 50 MG TAB PO PRN (08:02)
[2017-01-28] MEDS: FAMOTIDINE 20 MG TAB PO SCH (08:03)
[2017-01-28] MEDS: METOPROLOL SUCCINATE XR 25 MG TAB PO SCH (08:04)
[2017-01-28] MEDS: SENNOSIDES/DOCUSATE SODIUM TAB PO SCH (08:04)
[2017-01-28] MEDS: CYCLOBENZAPRINE 10 MG TAB PO PRN (08:10)
[2017-01-28] MEDS: KETOROLAC 30 MG/1 ML SDV IVP PRN (08:14)
[2017-01-28 08:17] VITALS: BP 131/82; PULSE 95
[2017-01-28 08:29] VITALS: TEMP 98.5
[2017-01-28] MEDS ORDERED: FUROSEMIDE 20 MG TAB PO SCH (09:00)
[2017-01-28] MEDS ORDERED: PRAVASTATIN SODIUM 20 MG TAB PO SCH (09:00)
[2017-01-28] MEDS ORDERED: NON-FORMULARY NEW DRUG (Lovastatin [Lovastatin] 20 MG) PO SCH (09:00)
[2017-01-28] MEDS ORDERED: FERROUS SULFATE 140 MG TAB.ER PO SCH (09:00)
[2017-01-28] MEDS ORDERED: LEVOTHYROXINE 112 MCG TAB PO SCH (09:00)
[2017-01-28] MEDS ORDERED: ENOXAPARIN 40 MG/0.4 ML SYR SC SCH (09:00)
--- NOTE | 2017-01-28 09:37 | SOAPPROG ---
SOAP Progress Note Assessment/Plan: Assessment: POD #1. s/p R TKA Awake, alert, afebrile. Mild pain. Dressing clean and dry. Post op films look good. VSS. H/H ok. Ambulating in room. Lovenox this AM. Plan: D/c to home later today. Cont. lovenox until INR theraputic. 01/28/17 09:35 Objective: Vital Signs Temp Pulse Resp BP Pulse Ox 36.9 C 95 16 131/82 H 94 01/28/17 08:00 01/28/17 08:04 01/28/17 03:52 01/28/17 08:04 01/28/17 08:00 Laboratory Results 01/28/17 04:14 01/27/17 01/28/17 01/29/17 05:59 05:59 05:59 Intake Total 1775 Output Total 100 Balance 1675 PT 15.5 SEC (12.0-15.0) H 01/27/17 09:20 INR 1.21 (0.83-1.16) H 01/27/17 09:20 ICD10 Worksheet Patient Problems: Problems Problem Status Onset Osteoarthritis of right knee Acute Vision abnormalities Acute
--- NOTE | 2017-01-28 11:55 | ASDISCHSUM ---
Discharge Information Plan Status:Home with No Needs Medically Cleared to Leave: Discharge Date:01/28/2017 11:48 AM CM D/C Disposition:Home, Routine, Self-Care ADT D/C Disposition:Home, Routine, Self-Care Projected Discharge Date:01/28/2017 11:48 AM Transportation at D/C: Discharge Delay Reason: Follow-Up Date:01/28/2017 11:48 AM Discharge Slot: Final Diagnosis: Placement Information Patient Contact Information Contact Name:CAMPBELL Relationship: Address:[address] City:[place] Alternate Phone: State/Zip Code:[place] [address] Email: Financial Information Financial Class: Primary Plan Desc:MEDICARE INPATIENT Primary Plan Number:[id number] Secondary Plan Desc:AARP/MDR SUPPLEMENT Secondary Plan Number:[id number] Assessment Information [facility] CM Progress Note CM Note CM Note Notes: [facility]JR pre-call pt independent. PT rec outpatient. Pt medically stable for d/c, no CM d/c needs identified. Date Signed: 01/28/2017 11:54 AM Electronically Signed By:HANG Haynes Intervention Information
--- NOTE | 2017-01-28 19:30 | GDS ---
[f rep st] DISCHARGE SUMMARY ADMISSION DIAGNOSIS: Severe right knee osteoarthritis. DISCHARGE DIAGNOSIS: Severe right knee osteoarthritis. OPERATIONS PERFORMED: Right total knee arthroplasty. POSTOPERATIVE COMPLICATIONS: None. CONDITION ON DISCHARGE: Improved. DESCRIPTION OF HOSPITAL COURSE: The patient was admitted to the hospital on the day of surgery. Her admission white blood cell count was 6.13. H and H were 14.3 and 43.0. The same day under IV sedation and Marcaine spinal anesthesia, as well as general anesthesia, the patient underwent a right total knee arthroplasty. She was treated with multimodal DVT prophylaxis including Leobardo stockings, SCDs, and early mobilization. On the first postoperative day, the patient's H and H were 12.2 and 37.0. She did not require any transfused blood. She was seen by Physical Therapy and made good progress with knee range of motion exercises and ambulation. By the time of discharge, the patient was independent with her walker and afebrile. DISPOSITION: The patient is discharged to her home. She will go directly to outpatient physical therapy. Leobardo stockings x1 week. She has prescriptions at home for tramadol. She may also use Tylenol and Celebrex. The patient is on Coumadin chronically for atrial fibrillation and previous pulmonary emboli. She has been given a prescription for Lovenox to take as bridge therapy until she is therapeutic with her Coumadin. She will get her Coumadin checked in 2 days from now. The patient has a followup appointment in 10 days. She will call the office if she has any problems before then. /[id number]/MODL MTDD
== END 2017-01-28 11:48 | disposition home or self-care (01) | DRG 470 ==
LOC: F3N 08:39
PROVIDERS: ADMIT Orthopaedic Surgery; ATTEND Orthopaedic Surgery
PROC: 0SRC0J9 Replacement of Right Knee Joint with Synthetic Substitute, Cemented, Open Approach (ICD-10-PCS; principal; 2017-01-27 10:15)
DX: M17.11 Unilateral primary osteoarthritis, right knee (principal); I48.91 Unspecified atrial fibrillation; I25.10 Atherosclerotic heart disease of native coronary artery without angina pectoris; G47.00 Insomnia, unspecified; H40.9 Unspecified glaucoma; E78.00 Pure hypercholesterolemia, unspecified; Z86.711 Personal history of pulmonary embolism; Z79.01 Long term (current) use of anticoagulants
CPT/HCPCS: 97110-GP; 97116-GP; 97161-GP; 97165-GO; 97530-GP; C1713; G8978-GP-CJ; G8979-GP-CI; G8980-GP-CI; G8987-GO-CI; G8988-GO-CI; G8989-GO-CI; J0171; J1100; J1650; J1885; J2250; J2704; J2795; J3010; J3370; J3490

== ENCOUNTER 2017-03-11 13:29 | Emergency (ER) | payer OTHER, MEDICARE ==
--- NOTE | 2017-03-11 14:32 | CPEKG ---
Heart Rate: 94 RR Interval: 638 QRSD Interval: 86 QT Interval: 352 QTC Interval: 441 QRS [place]: 90 T Wave [place]: 21 EKG Severity - ABNORMAL ECG - EKG Impression: ATRIAL FIBRILLATION, V-RATE 66-116 EKG Impression: BORDERLINE RIGHT AXIS DEVIATION Electronically Signed By: Genaro Hernandez 11-Mar-2017 16:15:41
--- NOTE | 2017-03-11 15:00 | EDPHY ---
H & P Smoking Status: Never smoked Time Seen by Provider: 03/11/17 14:30 HPI/ROS: Chief complaint. Shortness of breath HPI. 81-year-old female presents with history of being tired for the past 3 days. Slight shortness of breath. History of PE. Aching joints. No chest pain. Slight fever. No cough. No abdominal pain nausea vomiting or diarrhea. Knee replacement January 27. Dark urine. Complains of being thirsty. Otherwise no travel or known exposure to Infectious Disease. Patient is on warfarin. ROS Constitutional. Tired Eyes. no problems with vision ENT. no sore throat, no nasal drainage Cardiovascular. No chest pain Respiratory. Slight shortness of breath without cough Abdominal. no abdominal pain, no nausea/vomiting, no diarrhea . Dark urine MS. no calf pain/swelling, no neck/back pain, no joint pain Skin. no rash Lymph. no swollen glands Neuro. 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 ENT, Mouth: Mucous membranes are moist. Respiratory: There are no retractions, lungs are clear to auscultation. Cardiovascular: Regular rate and rhythm. Gastrointestinal: Abdomen is soft and nontender, no masses, bowel sounds normal. Neurological: Awake and alert, sensory and motor exams grossly normal. Skin: Warm and dry, no rashes. Musculoskeletal: Neck is supple nontender. Extremities symmetrical, full range of motion. Psychiatric: Patient is oriented X 3, there is no agitation. (Genaro Hernandez) Constitutional: Initial Vital Signs Temperature (C) 36.4 C 03/11/17 13:38 Heart Rate 96 03/11/17 13:38 Respiratory Rate 22 H 03/11/17 13:38 Blood Pressure 155/110 H 03/11/17 13:38 O2 Sat (%) 96 03/11/17 13:38 O2 Delivery Mode Room Air Allergies/Adverse Reactions: azithromycin [From Zithromax] Allergy (Severe, Verified 12/29/16 16:14) Hives gluten [Gluten] Allergy (Intermediate, Verified 12/29/16 16:14) Other-Enter Comments lactose [Lactose] Allergy (Intermediate, Verified 12/29/16 16:14) Other-Enter Comments latex [Latex] Allergy (Intermediate, Verified 12/29/16 16:14) Rash Penicillins Allergy (Intermediate, Verified 12/29/16 16:14) Rash codeine Allergy (Verified 12/29/16 16:05) she thinks she does- had a reaction one time TAPE Allergy (Uncoded 12/29/16 16:05) all tapes except for paper tape- causes blisters Home Medications: Medication Instructions Recorded C/E/Zn/Cu/OM3/DHA/EPA/LUT/ZEAX 1 cap PO BID 12/22/16 [Preservision Areds 2 Softgel] Furosemide [Lasix 20 MG (*)] 20 mg PO DAILY 12/22/16 Latanoprost 0.005% [Xalatan 0.005% 1 drops EACHEYE HS 12/22/16 (*)] Levothyroxine Sodium 112 mcg PO DAILY 12/22/16 Lovastatin 20 mg PO DAILY 12/22/16 Warfarin Sodium [Coumadin 1MG (*)] 2 mg PO SUTUTHSA 12/22/16 Warfarin Sodium [Coumadin 3MG (*)] 1 mg PO MWF 12/22/16 Cholecalciferol Vit D3 [Vitamin D3 1,000 units PO DAILY 01/22/17 (*)] Herbals/Supplements -Info Only 1 ea PO DAILY 01/22/17 Metoprolol Succinate Xr [Toprol Xl 25 mg PO BID 01/22/17 25 mg (*)] Acetaminophen [Tylenol 325mg (*)] 650 mg PO Q6HRS tab 01/28/17 Sennosides/Docusate Sodium 1 - 2 tab PO BID tab 01/28/17 [Senokot-S] traMADol [Ultram 50 mg (*)] 50 mg PO Q6HRS PRN tab 01/28/17 Medical Decision Making - Diagnostics EKG Interpretation: EKG interpreted by me shows atrial fibrillation with normal axis. QRS is normal there is no significant ST elevation or depression. The rate is 94. EKG is unchanged from a previous EKG in May 2016 (Genaro Hernandez) Imaging Results: Imaging Impressions Chest X-Ray 03/11/17 15:10 Impression: Suspect low-grade congestive heart failure superimposed upon underlying airways disease. Chest/Thorax CTA 03/11/17 16:27 Impression: 1. No evidence of pulmonary embolus using CT protocol. 2. Previously described small AVMs appear to just represent focal dilatation of peripheral pulmonary arterial branches at bifurcations without evidence of actual AVM. 3. Enlarged right and left atria as well as mild enlargement of the left ventricle. Consider underlying heart failure. 4. Stable disk disease with calcified disk bulges mid and lower thoracic spine. One-view chest x-ray interpreted by me is normal. Possibly mild fluid overload suggestive CHF (Genaro Hernandez) Procedures: IV normal saline, monitor (Genaro Hernandez) Differential Diagnosis: Considered pneumonia, congestive heart failure, acute coronary syndrome, pulmonary embolus, influenza (Genaro Hernandez) Other Provider: 5:20 p.m. I previously spoke with the patient about her D-dimer and we agreed to order a CT scan even though she is therapeutic on her INR she has had [address]. [address] is now back and is reassuring and shows mild edema which is consistent with her lab work and exam. I suggested Lasix and follow up with Dr. Baldwin. The patient is well appearing clinically and this is in line with Dr. Hernandez recommendations. The patient now tells me that she is supposed to be on Lasix but has not been taking it recently because she thought she was dehydrated ever since her knee surgery on January 27. I encouraged her to resume taking and follow up with Dr. Baldwin as previously discussed. She agrees with this. They declined further observation or admission. She does not have any chest pain. She has stable vital signs other than slight hypertension. ( Dash Burris) Care Turn Over: Care to Dr. Burris at 3:45 p.m. (Genaro Hernandez) - Data Points Laboratory Results: Laboratory Results 03/11/17 14:45 03/11/17 14:45 03/11/17 03/11/17 03/11/17 14:45 14:45 14:45 WBC RBC Hgb Hct MCV MCH MCHC RDW Plt Count MPV Neut % (Auto) Lymph % (Auto) Sierra % (Auto) Eos % (Auto) Baso % (Auto) Nucleat RBC Rel Count Absolute Neuts (auto) Absolute Lymphs (auto) Absolute Monos (auto) Absolute Eos (auto) Absolute Basos (auto) Absolute Nucleated RBC Immature Gran % Immature Gran # PT INR D-Dimer Sodium 142 mEq/L mEq/L (135-145) Potassium 3.9 mEq/L mEq/L (3.5-5.2) Chloride 104 mEq/L mEq/L (97-110) Carbon Dioxide 26 mEq/l mEq/l (22-31) Anion Gap 12 mEq/L mEq/L (8-16) BUN 16 mg/dL mg/dL (7-23) Creatinine 0.8 mg/dL mg/dL (0.6-1.0) Estimated GFR > 60 Glucose 92 mg/dL mg/dL (70-100) Calcium 9.5 mg/dL mg/dL (8.5-10.4) Troponin I < 0.012 ng/mL ng/mL (0.000-0.034) NT-Pro-B Natriuret Pep 3470 pg/mL H pg/mL (0-450) Urine Color YELLOW Urine Appearance CLEAR Urine pH 6.0 (5.0-7.5) Ur Specific [place] 1.009 (1.002-1.030) Urine Protein NEGATIVE (NEGATIVE) Urine Ketones NEGATIVE (NEGATIVE) Urine Blood NEGATIVE (NEGATIVE) Urine Nitrate NEGATIVE (NEGATIVE) Urine Bilirubin NEGATIVE (NEGATIVE) Urine Urobilinogen NEGATIVE EU EU (0.2-1.0) Ur Leukocyte Esterase NEGATIVE (NEGATIVE) Urine RBC 1-3 /hpf /hpf (0-3) Urine WBC 1-3 /hpf /hpf (0-3) Ur Epithelial Cells TRACE /lpf /lpf (NONE-1+) Ur Renal Epithelial Cell OCCASIONAL /hpf H /hpf (NONE SEEN) Urine Glucose NEGATIVE (NEGATIVE) Nasal Influenza A PCR NEGATIVE FOR FLU A (NEGATIVE) Nasal Influenza B PCR NEGATIVE FOR FLU B (NEGATIVE) 03/11/17 03/11/17 14:45 14:45 WBC 6.11 10^3/uL 10^3/uL (3.80-9.50) RBC 4.45 10^6/uL 10^6/uL (4.18-5.33) Hgb 14.2 g/dL g/dL (12.6-16.3) Hct 42.8 % % (38.0-47.0) MCV 96.2 fL fL (81.5-99.8) MCH 31.9 pg pg (27.9-34.1) MCHC 33.2 g/dL g/dL (32.4-36.7) RDW 14.6 % % (11.5-15.2) Plt Count 138 10^3/uL L 10^3/uL (150-400) MPV 12.3 fL H fL (8.7-11.7) Neut % (Auto) 67.5 % % (39.3-74.2) Lymph % (Auto) 22.1 % % (15.0-45.0) Sierra % (Auto) 7.5 % % (4.5-13.0) Eos % (Auto) 1.8 % % (0.6-7.6) Baso % (Auto) 0.8 % % (0.3-1.7) Nucleat RBC Rel Count 0.0 % % (0.0-0.2) Absolute Neuts (auto) 4.12 10^3/uL 10^3/uL (1.70-6.50) Absolute Lymphs (auto) 1.35 10^3/uL 10^3/uL (1.00-3.00) Absolute Monos (auto) 0.46 10^3/uL 10^3/uL (0.30-0.80) Absolute Eos (auto) 0.11 10^3/uL 10^3/uL (0.03-0.40) Absolute Basos (auto) 0.05 10^3/uL 10^3/uL (0.02-0.10) Absolute Nucleated RBC 0.00 10^3/uL 10^3/uL (0-0.01) Immature Gran % 0.3 % % (0.0-1.1) Immature Gran # 0.02 10^3/uL 10^3/uL (0.00-0.10) PT 23.6 SEC H SEC (12.0-15.0) INR 2.10 H (0.83-1.16) D-Dimer 1.02 ug/mLFEU H ug/mLFEU (0.00-0.50) Sodium Potassium Chloride Carbon Dioxide Anion Gap BUN Creatinine Estimated GFR Glucose Calcium Troponin I NT-Pro-B Natriuret Pep Urine Color Urine Appearance Urine pH Ur Specific [place] Urine Protein Urine Ketones Urine Blood Urine Nitrate Urine Bilirubin Urine Urobilinogen Ur Leukocyte Esterase Urine RBC Urine WBC Ur Epithelial Cells Ur Renal Epithelial Cell Urine Glucose Nasal Influenza A PCR Nasal Influenza B PCR Medications Given: Discontinued Medications Furosemide (Lasix) 20 mg PO EDNOW ONE Stop: 03/11/17 17:32 Last Admin: 03/11/17 17:47 Dose: Not Given Sodium Chloride (Ns) 1,000 mls @ 0 mls/hr IV ONCE ONE; Wide Open PRN Reason: Protocol Stop: 03/11/17 15:11 Last Admin: 03/11/17 15:23 Dose: 1,000 mls Departure - Departure Disposition: Home, Routine, Self-Care Clinical Impression: Acute exacerbation of congestive heart failure Qualifiers: Congestive heart failure type: unspecified Qualified Code(s): I50.9 - Heart failure, unspecified Hypertension Qualifiers: Hypertension type: essential hypertension Qualified Code(s): I10 - Essential ( primary) hypertension Condition: Good Instructions: Heart Failure (ED), Hypertension (ED) Additional Instructions: Resume the Lasix as we discussed and follow up with Dr. Baldwin in the next couple of days. Return to the emergency department if you feel worse. Referrals: Vidhi Fenton MD [Primary Care Provider] - As per Instructions Jason Baldwin MD [Medical Doctor] - 1-2 days without fail
[2017-03-11] MEDS ORDERED: NS 1,000 ML IV ONE (15:10)
[2017-03-11 15:18] LABS: PLATELET COUNT 138 10^3/uL (150-400)
[2017-03-11 15:34] LABS: INR 2.1 (0.83-1.16); PROTIME(PATIENT) 23.6 SEC (12.0-15.0)
[2017-03-11] MEDS ORDERED: IOPAMIDOL (ISOVUE 370) 100 ML BTL IV ONE (16:31)
[2017-03-11 16:47] VITALS: RESP 18
[2017-03-11] MEDS ORDERED: FUROSEMIDE 20 MG TAB PO ONE (17:31)
[2017-03-11 17:38] VITALS: BP 160/102; PULSE 105; TEMP 98.4; O2SAT 92
== END 2017-03-11 17:48 | disposition home or self-care (01) ==
DX: I50.9 Heart failure, unspecified (principal); I10 Essential (primary) hypertension; E86.9 Volume depletion, unspecified; Z79.01 Long term (current) use of anticoagulants; Z91.040 Latex allergy status
CPT/HCPCS: 71045; 71275; 93005; 96360; 99285; Q9967

== ENCOUNTER → 2017-03-16 | Outpatient (CLI) | payer OTHER, MEDICARE | LOC: BHFA 11:30 | PROVIDERS: ATTEND Internal Medicine Cardiovascular Disease | DX: I48.91 Unspecified atrial fibrillation (principal) ==

== ENCOUNTER → 2017-04-02 | Day surgery (SDC) | payer OTHER, MEDICARE ==
[~2017-04-02] MED LIST changes: +ATROPINE SULFATE 1 MG/10 ML SYR ONE; +BENZOCAINE UNIT DOSE SPRAY HURRICAINE MM ONE; +FLUMAZENIL 0.5 MG/5 ML MDV IVP ONE; +MIDAZOLAM 2 MG/2 ML VIAL IVP ONE; +MIDAZOLAM 2 MG/2 ML VIAL ONE; +NS 500 ML IV ONE; -NS IV ONE; -POVIDONE-IODINE 20 ML in SODIUM CL IRRIG SOLUTION 500 ML IRR ONE; -ROPIVACAINE 0.2% 80 MG, EPINEPHrine 0.2 MG, KETOROLAC TROMETHAMINE 30 MG in BAG 0 ML IU ONE; -TRANEXAMIC ACID IV ONE; -VANCOMYCIN 1 GM VIAL ONE; -VANCOMYCIN 750 MG in D5W 150 ML IV ONE; -VANCOMYCIN PHARMACY TO DOSE MISC ONE; -ceFAZolin 1 GM/5 ML SYR ONE; +fentaNYL 100 MCG/2 ML INJ IVP ONE; +fentaNYL 100 MCG/2 ML INJ ONE
--- NOTE | 2017-04-02 11:31 | PDPROPOC ---
Sedation Plan of Care Sedation Plan of Care: vital signs stable, mental status noted, patient educated of risks, benefits, alternatives, patient can tolerate sedation ASA Classification: ASA 2 Planned drugs: fentanyl, midazolam Mallampati Score: Class 1 Mallampati Reference Image: Patient passed 3-3-2 rule?: Yes
--- NOTE | 2017-04-03 08:18 | ECHO ---
[email or web address] [address] [address] Main: [phone] Fax: Transesophageal Echocardiography Name: TERE KEY MR#: [id number] Study Date: 04/02/2017 Study Time: 11:33 AM Date of : 1935 Age: 81 year(s) Height: ( ) Weight: ( ) BSA: Gender: Female Examination: PARK Indication: Eval Mitral Valve/Aortic Valve, Atrial Fibrillation Image Quality: Contrast: Requested by: Jason Baldwin Heart Rate: Rhythm: Atrial fibrillation BP: / Procedure Staff Tuck Pointer: Seymour Reynoso RDCS Reading Physician: Jason Baldwin Requesting Provider: PARK Exam Details Conclusions: The rhythm is atrial fibrillation. The left ventricle is normal in size. There is moderately reduced LV systolic function with an ejection fraction visually estimated at 35-40% with global hypokinesis. The right ventricle is also normal in size however the RV systolic function also appears to be mildly reduced. There is severe biatrial enlargement. The left atrial appendage is free of thrombus. Intact interatrial septum on color flow 2D imaging and with agitated saline contrast injection. Nonspecific leaflet thickening of the mitral leaflets and aortic leaflets. There is moderate central mitral regurgitation. This appears to be due to a PICC lead displaced and poor leaflet coaptation. There is mild central aortic regurgitation. Mild to moderate tricuspid regurgitation is present. No pericardial effusion is noted. Measurements: Chambers Valvular Assessment AV/MV Valvular Assessment TV/PV Normal Normal Normal Name Value Range Name Value Range Name Value Range LVOTd 1.9 cm 1.9 cm mm AV meanP mmHg ( - ) TR Vmax: 3.18 mm/s ( - ) SHAE (VTI): 1.4 cm ( - ) TR PGmax: 40 mmHg ( - ) AR (PHT): 519 ms ( - ) syst. PAP: 45 mmHg ( - ) MV meanP mmHg ( - ) MVA (Vmax): 1.2 m/s ( - ) Additional Measurements: Valvular Assessment AV/MV Valvular Assessment TV/PV Name Value Name Value Patient: TERE KEY Study Date: 04/02/2017 Page 1 of 2 11:33 AM MV Annulus: 3.1 cm CVP (est.): 5 mmHg MV VTI: 29.80 cm MR Vena Contracta: 0.6 cm MR ERO: 0.130 cm2 MR PISA radius: 7 mm MR Reg. Volume: 21 ml MR Reg. Fraction: 9 % AR Vmax: 4.29 cm/s Findings: Left Ventricle: The rhythm is atrial fibrillation and the EF is estimated at 40%. Right Ventricle: Mildly reduced RV function. Left Atrium: The left atrium is severely dilated. Right Atrium: The right atrium is moderately to severely dilated. Mitral Valve: Mild mitral valve leaflet calcification is present. Moderate mitral valve regurgitation is present. Aortic Valve: The aortic valve is tri-leaflet. Mild aortic valve regurgitation is present. Tricuspid Valve: Moderate tricuspid regurgitation is present. The pulmonary artery pressure is mildly increased. Pulmonic Valve: The pulmonic valve is normal in appearance and function. Aorta: The aorta is normal. Pericardium: No pericardial effusion. l1n (No Signature Object) Patient: TERE KEY Study Date: 04/02/2017 Page 2 of 2 11:33 AM [id number]
== END | disposition home or self-care (01) ==
LOC: FCATH 09:11
PROVIDERS: ATTEND Internal Medicine Cardiovascular Disease
PROC: B245ZZ4 Ultrasonography of Left Heart, Transesophageal (ICD-10-PCS; principal; 2017-04-02)
DX: I34.0 Nonrheumatic mitral (valve) insufficiency (principal); I36.1 Nonrheumatic tricuspid (valve) insufficiency; I48.91 Unspecified atrial fibrillation; R06.09 Other forms of dyspnea; I27.20 Pulmonary hypertension, unspecified; I50.9 Heart failure, unspecified; I10 Essential (primary) hypertension; I77.9 Disorder of arteries and arterioles, unspecified; E03.9 Hypothyroidism, unspecified; Z79.01 Long term (current) use of anticoagulants; Z96.651 Presence of right artificial knee joint; Z82.49 Family history of ischemic heart disease and other diseases of the circulatory system; Z88.0 Allergy status to penicillin; Z88.2 Allergy status to sulfonamides
CPT/HCPCS: J0461; J2250; J3010

== ENCOUNTER 2017-07-28 16:23 | Emergency (ER) | payer OTHER, MEDICARE ==
--- NOTE | 2017-07-28 17:54 | EDPHY ---
H & P Stated Complaint: felt pop in back of l knee getting up from chair on thursday Time Seen by Provider: 07/28/17 16:35 HPI/ROS: Chief complaint: Pain behind left knee History of present illness: This is an 81-year-old female who presents to the emergency department for pain behind her left knee. She states she has had discomfort for the last few days that has worsened. She denies associated signs or symptoms including no history of trauma, no abnormal coolness or paresthesias in the leg, no skin lesions. No other complaints. - Personal History Current Tetanus Diphtheria and Acellular Pertussis (TDAP): Yes - Medical/Surgical History Hx Asthma: No Hx Chronic Respiratory Disease: No Hx Diabetes: No Hx Cardiac Disease: Yes Hx Renal Disease: No Hx Cirrhosis: No Hx Alcoholism: No Hx HIV/AIDS: No Hx Splenectomy or Spleen Trauma: No Other PMH: HYSTERECTOMY, PARTIAL OCCLUSION OF LEFT CAROTID ARTERY, PULMONARY EMBOLISM X2, MARIVEL'S DISEASE, Afib, HSV - Social History Smoking Status: Never smoked - Physical Exam Exam: General: Alert, nontoxic Skin: No abnormal lesions to the left leg Musculoskeletal: Edema behind the left knee. She is flexing extending it well. The rest the leg is unremarkable. Vascular: DP and PT pulses 2+. Neurologic: Sensation intact throughout the left leg. Constitutional: Initial Vital Signs Temperature (C) 36.3 C 07/28/17 16:26 Heart Rate 79 07/28/17 16:26 Respiratory Rate 17 07/28/17 16:26 Blood Pressure 135/83 H 07/28/17 16:26 O2 Sat (%) 98 07/28/17 16:26 O2 Delivery Mode Room Air Allergies/Adverse Reactions: azithromycin [From Zithromax] Allergy (Severe, Verified 07/28/17 16:24) Hives gluten [Gluten] Allergy (Intermediate, Verified 07/28/17 16:24) Other-Enter Comments lactose [Lactose] Allergy (Intermediate, Verified 07/28/17 16:24) Other-Enter Comments latex [Latex] Allergy (Intermediate, Verified 07/28/17 16:24) Rash Penicillins Allergy (Intermediate, Verified 07/28/17 16:24) Rash codeine Allergy (Verified 07/28/17 16:24) she thinks she does- had a reaction one time TAPE Allergy (Uncoded 12/29/16 16:05) all tapes except for paper tape- causes blisters Home Medications: Medication Instructions Recorded C/E/Zn/Cu/OM3/DHA/EPA/LUT/ZEAX 1 cap PO BID 12/22/16 [Preservision Areds 2 Softgel] Furosemide [Lasix 20 MG (*)] 20 mg PO DAILY 12/22/16 Latanoprost 0.005% [Xalatan 0.005% 1 drops EACHEYE HS 12/22/16 (*)] Levothyroxine Sodium 112 mcg PO DAILY 12/22/16 Lovastatin 20 mg PO DAILY 12/22/16 Warfarin Sodium [Coumadin 1MG (*)] 2 mg PO SUTUTHSA 12/22/16 Warfarin Sodium [Coumadin 3MG (*)] 1 mg PO MWF 12/22/16 Cholecalciferol Vit D3 [Vitamin D3 1,000 units PO DAILY 01/22/17 (*)] Herbals/Supplements -Info Only 1 ea PO DAILY 01/22/17 Metoprolol Succinate Xr [Toprol Xl 25 mg PO BID 01/22/17 25 mg (*)] Acetaminophen [Tylenol 325mg (*)] 650 mg PO Q6HRS tab 01/28/17 Medical Decision Making - Diagnostics Imaging Results: Imaging Impressions Extremity Venous Study 07/28/17 16:51 Impression: 1. No deep vein thrombosis . 2. Donovan's cyst. Results called and discussed with ZIA Velásquez, at 07/28/2017 17:47 Imaging: Discussed imaging studies w/ call or contact centre team leader Radiologist ED Course/Re-evaluation: Patient seen under the supervision of my secondary supervising physician Dr. Steve Villa. Patient presents with pain and swelling behind her left knee. Ultrasound confirms a Donovan's cyst. No other significant findings. The leg is neurovascularly intact. She is discharged home to follow up with her primary care doctor for recheck. Return precautions given. Differential Diagnosis: Included but not limited to Donovan cyst, DVT, superficial thrombophlebitis Departure - Departure Disposition: Home, Routine, Self-Care Clinical Impression: Bakers cyst Qualifiers: Laterality: left Qualified Code(s): M71.22 - Synovial cyst of popliteal space [ Donovan], left knee Condition: Good Instructions: Bakers Cyst (ED) Additional Instructions: Follow-up with your primary care doctor for recheck this week If symptoms worsen or new symptoms develop return to the emergency room for recheck Referrals: Vidhi Fenton MD [Primary Care Provider] - As per Instructions
[2017-07-28 18:21] VITALS: BP 128/76
== END 2017-07-28 18:20 | disposition home or self-care (01) ==
DX: M71.22 Synovial cyst of popliteal space [Baker], left knee (principal); Z79.01 Long term (current) use of anticoagulants; Z91.040 Latex allergy status

== ENCOUNTER 2017-11-06 09:58 | Inpatient (IN) | payer OTHER, MEDICARE ==
[2017-11-06] MEDS ORDERED: ONDANSETRON 4 MG/2 ML VIAL IVP ONE (10:31)
--- NOTE | 2017-11-06 10:36 | EDPHY ---
General Time Seen by Provider: 11/06/17 10:31 Narrative: CHIEF COMPLAINT: Fall, hip pain HISTORY OF PRESENT ILLNESS: Patient presents by EMS and is seen shortly after time arrival. She complains of left hip pain status post fall. She was at the [facility] just prior to arrival. She had finished her exercise and was changing the locker room. She says the bench slipped out from under her, and she fell onto her left hip from standing position. She did not strike her head. Did not lose consciousness. Her only complaint is left hip pain. No pain anywhere else on her person. No nausea or vomiting. No numbness, tingling or weakness. The pain is severe, 10/10. Unable to bear weight. Radiates to the thigh. No other associated complaints or modifying factors NPO status: 7:00 a.m. Full meal with artificial creamer ESTABLISHED ORTHOPEDIST: Dr. Blanchard REVIEW OF SYSTEMS: Ten systems reviewed and are negative unless otherwise noted in the HPI PAST MEDICAL HISTORY: How she was, PE x2, AFib, HSV, arthritis PAST SURGICAL HISTORY: Right knee replacement, hysterectomy SOCIAL HISTORY: Nonsmoker. Lives independently with her spouse FAMILY HISTORY: Noncontributory EXAMINATION: General Appearance: Alert, no distress HEENT: Normocephalic, atraumatic. Pupils equal round reactive. EOM symmetric Neck: Supple nontender. Midline trachea. No crepitus, step-off or deformity. Cardiovascular: Regular rhythm. No murmur. Symmetric DP and PT pulses 2+. Neurological: A&O, light sensory symmetric, ankle and great toe strength symmetric Skin: Warm and dry, no rash Extremities: Significant tenderness in left greater trochanter. Left hip not range due to known fracture on x-ray. Range of motion of the ankle symmetric. There is no evidence of compartment syndrome to the left lower extremity. Range of motion upper extremities unremarkable symmetric. Psychiatric: Mood and affect normal DIFFERENTIAL DIAGNOSES: Including but not limited to fracture, sprain, strain, contusion, hematoma MDM: 10:30 a.m. Mechanical fall just prior to arrival with left hip fracture. No head injury loss conscious. No chest, back or abdominal pain. She was not ambulatory due to the pain. 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 She is in no acute distress. Vital signs stable. I have ordered pain medication and we will consult Orthopedics. She will require admission the hospital. She is awake and alert. No acute distress 10:45 a.m. Case discussed with hospitalist Charla Pearson. Patient will be admitted to Dr. Shah. She is admitted in stable condition. Orthopedics consultation pending. 11:12 a.m. Case discussed with orthopedist Dr. Morales. We discussed the x-rays that he is reviewed. He is requesting vitamin K both p.o. Intramuscular. This is will be ordered pending the return of her coagulopathy studies. 11:20 a.m. Case discussed again with orthopedist. He is requesting TXA IV and has ordered this himself. 11:25 a.m. I have also discussed the case with the admitting physician Dr. Shah. I communicated the request for vitamin K from the surgeon. He will order this, coordinate the administration and monitor coag studies. At this time the patient admitted stable condition. I re-evaluated her. She is resting comfortably in no acute distress. SUPERVISION: Patient was independently examined, but I discussed the case with my secondary supervising physician Dr. Springer. - Diagnostics Imaging Results: Imaging Impressions Hip X-Ray 11/06/17 10:06 Impression: Angulated intertrochanteric proximal femoral fracture with medial displacement of a lesser trochanteric butterfly fragment. - History Smoking Status: Never smoked - Objective Vital Signs: Initial Vital Signs Temperature (C) 97.9 F 11/06/17 10:02 Heart Rate 80 11/06/17 10:02 Respiratory Rate 108 H 11/06/17 10:02 Blood Pressure 169/105 H 11/06/17 10:02 O2 Sat (%) 93 11/06/17 10:02 O2 Delivery Mode Room Air Allergies/Adverse Reactions: azithromycin [From Zithromax] Allergy (Severe, Verified 07/28/17 16:24) Hives gluten [Gluten] Allergy (Intermediate, Verified 07/28/17 16:24) Other-Enter Comments lactose [Lactose] Allergy (Intermediate, Verified 07/28/17 16:24) Other-Enter Comments latex [Latex] Allergy (Intermediate, Verified 07/28/17 16:24) Rash Penicillins Allergy (Intermediate, Verified 07/28/17 16:24) Rash codeine Allergy (Verified 07/28/17 16:24) she thinks she does- had a reaction one time TAPE Allergy (Uncoded 12/29/16 16:05) all tapes except for paper tape- causes blisters Home Medications: Medication Instructions Recorded C/E/Zn/Cu/OM3/DHA/EPA/LUT/ZEAX 1 cap PO BID 12/22/16 [Preservision Areds 2 Softgel] Furosemide [Lasix 20 MG (*)] 20 mg PO DAILY 12/22/16 Latanoprost 0.005% [Xalatan 0.005% 1 drops EACHEYE HS 12/22/16 (*)] Levothyroxine Sodium 112 mcg PO DAILY 12/22/16 Lovastatin 20 mg PO DAILY 12/22/16 Warfarin Sodium [Coumadin 1MG (*)] 2 mg PO SUTUTHSA 12/22/16 Warfarin Sodium [Coumadin 3MG (*)] 1 mg PO MWF 12/22/16 Cholecalciferol Vit D3 [Vitamin D3 1,000 units PO DAILY 01/22/17 (*)] Herbals/Supplements -Info Only 1 ea PO DAILY 01/22/17 Acetaminophen [Tylenol 325mg (*)] 650 mg PO Q6HRS tab 01/28/17 Furosemide [Lasix 40 MG (*)] 40 mg PO Q2D 11/06/17 Losartan Potassium [Cozaar 25 mg 25 mg PO HS 11/06/17 (*)] Metoprolol Succinate Xr [Toprol Xl 75 mg PO BID 11/06/17 50 mg (*)] Laboratory Results: Laboratory Results 11/06/17 10:43 11/06/17 11/06/17 11/06/17 10:43 10:43 10:43 WBC 7.79 10^3/uL 10^3/uL (3.80-9.50) RBC 4.58 10^6/uL 10^6/uL (4.18-5.33) Hgb 13.8 g/dL g/dL (12.6-16.3) Hct 42.7 % % (38.0-47.0) MCV 93.2 fL fL (81.5-99.8) MCH 30.1 pg pg (27.9-34.1) MCHC 32.3 g/dL L g/dL (32.4-36.7) RDW 15.5 % H % (11.5-15.2) Plt Count 169 10^3/uL 10^3/uL (150-400) MPV 11.8 fL H fL (8.7-11.7) Neut % (Auto) 73.6 % % (39.3-74.2) Lymph % (Auto) 15.8 % % (15.0-45.0) [place] % (Auto) 7.7 % % (4.5-13.0) Eos % (Auto) 1.8 % % (0.6-7.6) Baso % (Auto) 0.6 % % (0.3-1.7) Nucleat RBC Rel Count 0.0 % % (0.0-0.2) Absolute Neuts (auto) 5.73 10^3/uL 10^3/uL (1.70-6.50) Absolute Lymphs (auto) 1.23 10^3/uL 10^3/uL (1.00-3.00) Absolute Monos (auto) 0.60 10^3/uL 10^3/uL (0.30-0.80) Absolute Eos (auto) 0.14 10^3/uL 10^3/uL (0.03-0.40) Absolute Basos (auto) 0.05 10^3/uL 10^3/uL (0.02-0.10) Absolute Nucleated RBC 0.00 10^3/uL 10^3/uL (0-0.01) Immature Gran % 0.5 % % (0.0-1.1) Immature Gran # 0.04 10^3/uL 10^3/uL (0.00-0.10) PT Pending INR Pending APTT Pending Sodium Pending Potassium Pending Chloride Pending Carbon Dioxide Pending Anion Gap Pending BUN Pending Creatinine Pending Estimated GFR Pending Glucose Pending Calcium Pending Medications Given: Discontinued Medications Morphine Sulfate (Morphine) 4 mg IVP EDNOW ONE Stop: 11/06/17 10:32 Last Admin: 11/06/17 10:49 Dose: 4 mg Ondansetron HCl (Zofran) 4 mg IVP EDNOW ONE Stop: 11/06/17 10:32 Last Admin: 11/06/17 10:49 Dose: 4 mg Departure - Departure Disposition: [facility] Inpatient Acute Clinical Impression: Warfarin-induced coagulopathy, Chronic a-fib Intertrochanteric fracture of left femur Qualifiers: Encounter type: initial encounter Fracture type: closed Fracture alignment: displaced Qualified Code(s): S72.142A - Displaced intertrochanteric fracture of left femur, initial encounter for closed fracture Condition: Good Referrals: Vidhi Fenton MD [Primary Care Provider] - As per Instructions Kiet Blanchard MD [Medical Doctor] - As per Instructions
[2017-11-06 11:09] LABS: PLATELET COUNT 169 10^3/uL (150-400)
[2017-11-06 11:19] LABS: INR 2.2 (0.83-1.16); PROTIME(PATIENT) 24.5 SEC (12.0-15.0)
[2017-11-06] MEDS ORDERED: TRANEXAMIC ACID 1,000 MG in NS 100 ML IV ONE (11:19)
[2017-11-06] MEDS ORDERED: PHYTONADIONE 10 MG in NS 50 ML IV ONE ×2 (11:23→16:34)
[2017-11-06] MEDS ORDERED: ONDANSETRON 4 MG/2 ML VIAL IVP PRN (12:42)
[2017-11-06] MEDS ORDERED: ACETAMINOPHEN 325 MG TAB PO PRN (12:42)
[2017-11-06] MEDS ORDERED: ONDANSETRON DISINTEGRATING 4 MG TAB PO PRN (12:42)
[2017-11-06] MEDS ORDERED: hydrALAZINE 20 MG/ML VIAL IVP PRN (12:45)
--- NOTE | 2017-11-06 12:51 | PDGENHP ---
History and Physical - Chief Complaint fall - History of Present Illness 82 yo female with mechanical fall with subsequent left hip fracture. She complains of left hip pain status post fall. She was at the [facility] just prior to arrival. She had finished her exercise and was changing the locker room. She says the bench slipped out from under her, and she fell onto her left hip from standing position. She did not strike her head. Did not lose consciousness. Her only complaint is left hip pain. No pain anywhere else on her person. No nausea or vomiting. No numbness, tingling or weakness. The pain is severe, 10/ 10. Unable to bear weight. Radiates to the thigh. No other associated complaints or modifying factors She has hx of Afib, PE, Chronic AC with Warfarin. Afebrile PAST MEDICAL HISTORY: How she was, PE x2, AFib, HSV, arthritis, HTN PAST SURGICAL HISTORY: Right knee replacement, hysterectomy SOCIAL HISTORY: Nonsmoker. Lives independently with her spouse FAMILY HISTORY: Noncontributory EKG: Afib at 87bpm, Left hip XR reviewed History Information - Allergies/Home Medication List Allergies/Adverse Reactions: azithromycin [From Zithromax] Allergy (Severe, Verified 07/28/17 16:24) Hives gluten [Gluten] Allergy (Intermediate, Verified 07/28/17 16:24) Other-Enter Comments lactose [Lactose] Allergy (Intermediate, Verified 07/28/17 16:24) Other-Enter Comments latex [Latex] Allergy (Intermediate, Verified 07/28/17 16:24) Rash Penicillins Allergy (Intermediate, Verified 07/28/17 16:24) Rash codeine Allergy (Verified 07/28/17 16:24) she thinks she does- had a reaction one time TAPE Allergy (Uncoded 12/29/16 16:05) all tapes except for paper tape- causes blisters Home Medications: C/E/Zn/Cu/OM3/DHA/EPA/LUT/ZEAX [Preservision Areds 2 Softgel] 1 cap PO BID 12/22 [Last Taken 11/06/17] Furosemide [Lasix 20 MG (*)] 20 mg PO Q2D 12/22/16 [Last Taken 11/06/17] Latanoprost 0.005% [Xalatan 0.005% (*)] 1 drops EACHEYE HS 12/22/16 [Last Taken 11/05/17] Levothyroxine Sodium 112 mcg PO DAILY 12/22/16 [Last Taken 11/06/17] Lovastatin 20 mg PO HS 12/22/16 [Last Taken 11/05/17] Warfarin Sodium [Coumadin 1MG (*)] 2 mg PO SUTUTHSA 12/22/16 [Last Taken ] Warfarin Sodium [Coumadin 3MG (*)] 1 mg PO MWF 12/22/16 [Last Taken 11/06/17] Cholecalciferol Vit D3 [Vitamin D3 (*)] 1,000 units PO DAILY 01/22/17 [Last Taken 11/06/17] Herbals/Supplements -Info Only 1 ea PO DAILY 01/22/17 [Last Taken 04/01/17] Furosemide [Lasix 40 MG (*)] 40 mg PO Q2D 11/06/17 [Last Taken 11/05/17] Losartan Potassium [Cozaar 25 mg (*)] 25 mg PO HS 11/06/17 [Last Taken 11/05/17] Metoprolol Succinate Xr [Toprol Xl 50 mg (*)] 75 mg PO BID 11/06/17 [Last Taken 11/06/17] I have personally reviewed and updated: medical history, social history - Social History Smoking Status: Never smoked Review of Systems Review of Systems: ROS: 10pt was reviewed & negative except for what was stated in HPI & below Physical Exam Physical Exam: Temp Pulse Resp BP Pulse Ox 36.4 C 84 15 164/91 H 99 11/06/17 12:05 11/06/17 12:05 11/06/17 12:05 11/06/17 12:05 11/06/17 12:05 O2 (L/minute) 2.5 Constitutional: no apparent distress Eyes: PERRL Ears, Nose, Mouth, Throat: moist mucous membranes, hearing normal Cardiovascular: irregularly irregular, No edema Respiratory: no respiratory distress, no rales or rhonchi, clear to auscultation Gastrointestinal: normoactive bowel sounds, soft, non-tender abdomen Skin: warm Neurologic: AAOx3 Psychiatric: interacting appropriately, not anxious, not encephalopathic Lymph, Heme, Immunologic: No petechiae Lab Data & Imaging Review 11/06/17 10:43 11/06/17 10:43 WBC 7.79 10^3/uL (3.80-9.50) 11/06/17 10:43 RBC 4.58 10^6/uL (4.18-5.33) 11/06/17 10:43 Hgb 13.8 g/dL (12.6-16.3) 11/06/17 10:43 Hct 42.7 % (38.0-47.0) 11/06/17 10:43 MCV 93.2 fL (81.5-99.8) 11/06/17 10:43 MCH 30.1 pg (27.9-34.1) 11/06/17 10:43 MCHC 32.3 g/dL (32.4-36.7) L 11/06/17 10:43 RDW 15.5 % (11.5-15.2) H 11/06/17 10:43 Plt Count 169 10^3/uL (150-400) 11/06/17 10:43 MPV 11.8 fL (8.7-11.7) H 11/06/17 10:43 Neut % (Auto) 73.6 % (39.3-74.2) 11/06/17 10:43 Lymph % (Auto) 15.8 % (15.0-45.0) 11/06/17 10:43 [place] % (Auto) 7.7 % (4.5-13.0) 11/06/17 10:43 Eos % (Auto) 1.8 % (0.6-7.6) 11/06/17 10:43 Baso % (Auto) 0.6 % (0.3-1.7) 11/06/17 10:43 Nucleat RBC Rel Count 0.0 % (0.0-0.2) 11/06/17 10:43 Absolute Neuts (auto) 5.73 10^3/uL (1.70-6.50) 11/06/17 10:43 Absolute Lymphs (auto) 1.23 10^3/uL (1.00-3.00) 11/06/17 10:43 Absolute Monos (auto) 0.60 10^3/uL (0.30-0.80) 11/06/17 10:43 Absolute Eos (auto) 0.14 10^3/uL (0.03-0.40) 11/06/17 10:43 Absolute Basos (auto) 0.05 10^3/uL (0.02-0.10) 11/06/17 10:43 Absolute Nucleated RBC 0.00 10^3/uL (0-0.01) 11/06/17 10:43 Immature Gran % 0.5 % (0.0-1.1) 11/06/17 10:43 Immature Gran # 0.04 10^3/uL (0.00-0.10) 11/06/17 10:43 PT 24.5 SEC (12.0-15.0) H 11/06/17 10:43 INR 2.20 (0.83-1.16) H 11/06/17 10:43 APTT 28.6 SEC (23.0-38.0) 11/06/17 10:43 Sodium 143 mEq/L (135-145) 11/06/17 10:43 Potassium 4.3 mEq/L (3.3-5.0) 11/06/17 10:43 Chloride 102 mEq/L (97-110) 11/06/17 10:43 Carbon Dioxide 33 mEq/l (22-31) H 11/06/17 10:43 Anion Gap 8 mEq/L (8-16) 11/06/17 10:43 BUN 18 mg/dL (7-23) 11/06/17 10:43 Creatinine 0.6 mg/dL (0.6-1.0) 11/06/17 10:43 Estimated GFR > 60 11/06/17 10:43 Glucose 113 mg/dL (70-100) H 11/06/17 10:43 Calcium 9.2 mg/dL (8.5-10.4) 11/06/17 10:43 Assessment & Plan Assessment: Intertrochanteric fracture of left femur HTN, elevated due to pain Acute Pain Syndrome Chronic a-fib Warfarin-induced coagulopathy in setting of Chronic AC due to hx of Afib and hx of PE/DVT Plan: Plan for surgery this evening will provided Vitamin K IV. Recheck INR this afternoon and can repeat if needed Transexamic acid already given in the ER cont home meds including BB will hold home Warfarin Hydralazine as needed for elevated bp pain mgmt DNR
--- NOTE | 2017-11-06 15:13 | GCON ---
I was asked to see and evaluate the patient. I personally reviewed the images and will see her later today for a full physical examination. HISTORY OF PRESENT ILLNESS: The patient is a very pleasant 82-year-old woman with a history of knee arthritis and has been treated by Dr. Kiet Blanchard with [facility]. She sustained a ground level fall earlier today, resulting in immediate left hip pain and inability to bear weight on the left leg. She was noted to have a left intertrochanteric fracture, for which I was consulted. IMAGING: Imaging reviewed demonstrates a left intertrochanteric fracture of the left hip. LABORATORY DATA: Lab review demonstrates an INR of 2.2. IMPRESSION: Left hip fracture. PLAN: I have communicated with the emergency room provider that she has an intertrochanteric fractur e that will need open reduction and internal fixation once the INR is appropriate. I requested 5 mg of intravenous vitamin K, as well as 5 mg of oral vitamin K in order to bring her down to a therapeut ic level. We will plan for surgery tomorrow versus Thursday depending on the INR values. Of note, I maycol turner also asked for a gram of tranexamic acid to be administered to minimize blood loss, and I do not believe there are any contraindications to that in this patient. I will be available to see this pat ient later this evening and can be contacted at any point if there are any further questions regardin g her orthopedic care. At this point, DVT prophylaxis is fine with me but should be held tomorrow mo rning in anticipation of anticipated surgery. Please do not hesitate to contact me at any time, . /[id number]/MODL
[2017-11-06 15:23] LABS: INR 1.78 (0.83-1.16); PROTIME(PATIENT) 20.8 SEC (12.0-15.0)
--- NOTE | 2017-11-06 15:46 | PDMN ---
Medical Necessity Medical necessity: [facility] Musculoskeletal Disease: 82 y/o s/p mechanical fall , left hip fx (intertrochanteric fx of left femur), on Coumadin. trauma surg consult, plan for surgery this evening, admin vit K IV, ORIF once INR is appropriate. Hx afib, PEx2, chronic AC w/ warfarin, HTN
[2017-11-06] MEDS ORDERED: ACETAMINOPHEN 325 MG TAB PO SCH (18:00)
[2017-11-06] MEDS: HYDROCODONE/APAP 5/325 TAB PO PRN ×2 (19:48→21:39)
[2017-11-06] MEDS: METOPROLOL SUCCINATE XR 50 MG TAB PO SCH (21:40)
[2017-11-06] MEDS: LATANOPROST 0.005% 2.5 ML OPHT DROPS EACHEYE SCH (21:40)
[2017-11-06] MEDS: PRAVASTATIN SODIUM 20 MG TAB PO SCH (21:40)
[2017-11-07] MEDS: HYDROCODONE/APAP 5/325 TAB PO PRN ×3 (04:00→15:07)
[2017-11-07 05:24] LABS: PLATELET COUNT 147 10^3/uL (150-400)
[2017-11-07 05:31] LABS: INR 1.29 (0.83-1.16); PROTIME(PATIENT) 16.3 SEC (12.0-15.0)
[2017-11-07] MEDS ORDERED: Herbals/Supplements -Info Only PO SCH (09:00)
[2017-11-07] MEDS: LEVOTHYROXINE 112 MCG TAB PO SCH (10:12)
[2017-11-07] MEDS: METOPROLOL SUCCINATE XR 50 MG TAB PO SCH ×2 (10:12→21:45)
[2017-11-07] MEDS: CHOLECALCIFEROL VIT D3 1,000 UNITS TAB PO SCH (10:19)
[2017-11-07] MEDS: D5W 1/2 NS W/ 20 KCl/L 1,000 ML IV SCH (11:10)
--- NOTE | 2017-11-07 12:07 | GPROG ---
I have reviewed Liyah's labs. An INR this morning was drawn at 1.8. I reviewed that and then made a recommendation for a delayed operation. An interim INR has been drawn, which demonstrated an INR of just under 1.3. In light of this, I feel that risk is appropriate for the patient to move forward fo r surgery today. We will more than likely use a short left hip nail. The reason for a short nail be ing to allow for any sort of operation on the knee if the patient needs it in the future. The patien t does report some baseline left knee pain, possibly consistent with arthritis. Again, I have gone o harjeet risks, benefits, and alternatives of surgery with the patient as well as her . I have don e this both last night as well as today to a good extent. I do feel she has a good understanding of risks, benefits, and alternatives of the procedure to be provided. We anticipate the patient will be weightbearing as tolerated and can immediately start taking warfarin after the operation. An interi m use of heparin may be indicated. Of note, the patient states that she has an adverse reaction to L ovenox. /[id number]/MODL
--- NOTE | 2017-11-07 13:20 | HOSPPROG ---
Hospitalist Progress Note Assessment/Plan: Intertrochanteric fracture of left femur HTN, elevated due to pain Acute Pain Syndrome Chronic a-fib Warfarin-induced coagulopathy in setting of Chronic AC due to hx of Afib and hx of PE/DVT -INR yesterday afternoon dropped to 1.8. She was given additional Vitamin K and INR this morning is 1.29 Plan: Awaiting surgical reccs. Hopefully surgery today cont home meds including BB will hold home Warfarin Hydralazine as needed for elevated bp pain mgmt Full code: this is change from admission as she now considers herself full code Subjective: INR is 1.29. Hoping for surgery today. pain is well controlled. Objective: Vital Signs Temp Pulse Resp BP Pulse Ox 36.6 C 75 15 119/61 98 11/07/17 12:00 11/07/17 12:00 11/07/17 12:00 11/07/17 12:00 11/07/17 12:00 Laboratory Results 11/07/17 04:30 11/07/17 04:30 11/06/17 11/07/17 11/08/17 05:59 05:59 05:59 Intake Total 0 Output Total 950 350 Balance -950 -350 PT 16.3 SEC (12.0-15.0) H 11/07/17 04:30 INR 1.29 (0.83-1.16) H 11/07/17 04:30 - Physical Exam Constitutional: no apparent distress Eyes: PERRL Ears, Nose, Mouth, Throat: moist mucous membranes Cardiovascular: irregularly irregular, No edema Respiratory: no respiratory distress, no rales or rhonchi, clear to auscultation Gastrointestinal: normoactive bowel sounds, soft, non-tender abdomen Skin: warm Neurologic: AAOx3 Psychiatric: interacting appropriately, not anxious, not encephalopathic Lymph, Heme, Immunologic: No petechiae ICD10 Worksheet Patient Problems: Problems Problem Status Onset Chronic a-fib Acute Intertrochanteric fracture of left femur Acute Warfarin-induced coagulopathy Acute Bakers cyst Acute Osteoarthritis of right knee Acute Vision abnormalities Acute
--- NOTE | 2017-11-07 16:32 | ASMTCMCOM ---
CM Note CM Note Notes: Pt admitted with a L hip fx after a mechanical fall. She has a hx of afib. Surgery planned, PT/OT evals pending. CM will follow for any d/c needs. Pt lives independently with her . D/C plan: TBD Date Signed: 11/07/2017 04:32 PM Electronically Signed By:HANG Valdez
[2017-11-07] MEDS ORDERED: TRANEXAMIC ACID 1,000 MG in NS 100 ML IV ONE (17:14)
[2017-11-07] MEDS ORDERED: ceFAZolin 2 GM/DEXTROSE 100 ML IV ONE (17:14)
[2017-11-07] MEDS ORDERED: MIDAZOLAM 2 MG/2 ML VIAL IVP ONE (17:17)
--- NOTE | 2017-11-07 17:21 | PDANEPAE ---
ANE History of Present Illness l hip fx ANE Past Medical History - Cardiovascular History Hx Hypertension: Yes Hx Arrhythmias: Yes Hx Chest Pain: No Hx Coronary Artery / Peripheral Vascular Disease: No Hx CHF / Valvular Disease: Yes Hx Palpitations: No Cardiovascular History Comment: afib. cad. mitral regurg- heart murmur. tricupsid regurgitation. vavlular insufficiency. peripheral venous insufficiency. see's dr inman at [facility] - Pulmonary History Hx COPD: No Hx Asthma/Reactive Airway Disease: No Hx Recent Upper Respiratory Infection: No Hx Oxygen in Use at Home: No Hx Sleep Apnea: No Sleep Apnea Screening Result - Last Documented: Positive Pulmonary History Comment: PNEUMONIA 05/2013. PE X 2 LAST 2002 & 2011 - Neurologic History Hx Cerebrovascular Accident: No Hx Seizures: No Hx Dementia: No Neurologic History Comment: ?TIA VS MIGRAINE 06/2013 - Endocrine History Hx Diabetes: No Endocrine History Comment: MARIVEL'S - Renal History Hx Renal Disorders: No - Liver History Hx Hepatic Disorders: No - Neurological & Psychiatric Hx Hx Neurological and Psychiatric Disorders: No - Cancer History Hx Cancer: Yes Cancer History Comment: SKIN - Congenital Disorder History Hx Congenital Disorders: No - GI History Hx Gastrointestinal Disorders: Yes Gastrointestinal History Comment: LACTOSE AND GLUTENT INTOL - Other Health History Other Health History: INSOMNIA. CHRONIC FATIQUE RELATED TO PNEUMONIA 2011. GLAUCOMA/MAC DEGENERATION. cataract - Chronic Pain History Chronic Pain: Yes (LT ING HERNIA) - Surgical History Prior Surgeries: HYSTERECTOMY WITH BLADDER SUSPENSION AND REPAIR OF COLON ANE Review of Systems Review of Systems: ANE Patient History - Allergies Allergies/Adverse Reactions: azithromycin [From Zithromax] Allergy (Severe, Verified 07/28/17 16:24) Hives gluten [Gluten] Allergy (Intermediate, Verified 07/28/17 16:24) Other-Enter Comments lactose [Lactose] Allergy (Intermediate, Verified 07/28/17 16:24) Other-Enter Comments latex [Latex] Allergy (Intermediate, Verified 07/28/17 16:24) Rash Penicillins Allergy (Intermediate, Verified 07/28/17 16:24) Rash codeine Allergy (Verified 07/28/17 16:24) she thinks she does- had a reaction one time TAPE Allergy (Uncoded 12/29/16 16:05) all tapes except for paper tape- causes blisters - Home Medications Home Medications: C/E/Zn/Cu/OM3/DHA/EPA/LUT/ZEAX [Preservision Areds 2 Softgel] 1 cap PO BID 12/22 [Last Taken 11/06/17] Furosemide [Lasix 20 MG (*)] 20 mg PO Q2D 12/22/16 [Last Taken 11/06/17] Latanoprost 0.005% [Xalatan 0.005% (*)] 1 drops EACHEYE HS 12/22/16 [Last Taken 11/05/17] Levothyroxine Sodium 112 mcg PO DAILY 12/22/16 [Last Taken 11/06/17] Lovastatin 20 mg PO HS 12/22/16 [Last Taken 11/05/17] Warfarin Sodium [Coumadin 1MG (*)] 2 mg PO SUTUTHSA 12/22/16 [Last Taken ] Warfarin Sodium [Coumadin 3MG (*)] 1 mg PO MWF 12/22/16 [Last Taken 11/06/17] Cholecalciferol Vit D3 [Vitamin D3 (*)] 1,000 units PO DAILY 01/22/17 [Last Taken 11/06/17] Herbals/Supplements -Info Only 1 ea PO DAILY 01/22/17 [Last Taken 04/01/17] Furosemide [Lasix 40 MG (*)] 40 mg PO Q2D 11/06/17 [Last Taken 11/05/17] Losartan Potassium [Cozaar 25 mg (*)] 25 mg PO HS 11/06/17 [Last Taken 11/05/17] Metoprolol Succinate Xr [Toprol Xl 50 mg (*)] 75 mg PO BID 11/06/17 [Last Taken 11/06/17] - NPO status NPO Since - Liquids (Date): 11/07/17 NPO Since - Liquids (Time): 00:00 NPO Since - Solids (Date): 11/07/17 NPO Since - Solids (Time): 00:00 - Smoking Hx Smoking Status: Never smoked - Family Anes Hx Family Hx Anesthesia Complications: none ANE Labs/Vital Signs - Labs Result Diagrams: 11/07/17 04:30 11/07/17 04:30 - Vital Signs Blood Pressure: 119/61 Heart Rate: 75 Respiratory Rate: 15 O2 Sat (%): 98 Height: 157.48 cm Weight: 53.07 kg ANE Physical Exam - Airway Neck exam: FROM Mallampati Score: Class 2 Mouth exam: normal dental/mouth exam - Pulmonary Pulmonary: no respiratory distress - Cardiovascular Cardiovascular: regular rate and rhythym - ASA Status ASA Status: III, E ANE Anesthesia Plan Anesthesia Plan: general endotracheal anesthesia
[2017-11-07] MEDS ORDERED: fentaNYL 100 MCG/2 ML INJ ONE ×3 (17:23→19:32)
[2017-11-07] MEDS ORDERED: LIDOCAINE 2% 2 ML INJ ONE (17:23)
[2017-11-07] MEDS ORDERED: PROPOFOL 200 MG/20 ML VIAL ONE (17:23)
[2017-11-07] MEDS ORDERED: ROCURONIUM 50 MG/5 ML VIAL ONE (17:23)
[2017-11-07] MEDS ORDERED: HYDROmorphONE/DILAUDID 1 MG/ML INJ IVP PRN (18:34)
[2017-11-07] MEDS ORDERED: oxyCODONE IR 5 MG TAB PO PRN (18:34)
[2017-11-07] MEDS ORDERED: ONDANSETRON 4 MG/2 ML VIAL IVP PRN (18:34)
[2017-11-07] MEDS ORDERED: fentaNYL 100 MCG/2 ML INJ IVP PRN (18:34)
[2017-11-07] MEDS ORDERED: PROMETHAZINE HCL 25 MG/ML INJ IVP PRN (18:34)
[2017-11-07] MEDS ORDERED: NALOXONE HCL 0.4 MG/ML INJ IVP PRN (18:34)
--- NOTE | 2017-11-07 19:15 | POSTANESTH ---
Post Anesthetic Evaluation Cardiovascular Status: Normal, Stable Respiratory Status: Normal, Stable Level of Consciousness/Mental Status: Can Participate in Eval Pain Control: Adequate, Prn Tx Ordered Nausea/Vomiting Control: Adequate, Prn Tx Ordered Complications Possibly Related to Anesthesia: None Noted
--- NOTE | 2017-11-07 19:17 | SUROPNOTE ---
[facility] Operative Report - Surgery Date: 11/07/17 Pre-operative Diagnosis: Lt hip extracapsular hip fracture Post-operative Diagnosis: Same Procedure: Lt hip open reduction and internal fixation with an intramedullary device Surgeon: Nayan Morales MD Pediatrics Teacher: None Anesthesia: General endotracheal anesthesia Findings: As expected Estimated Blood Loss: 200mL Drains: None Specimens: None Complications: None Condition: Transferred to PACU in stable condition. Implants: Synthes Intramedullary nail, size 11mm, 90mm compression screw, 36mm distal interlocking screw Indications: The patient was seen and examined by me in the hospital, and diagnosed with an intertrochanteric hip fx. I have explained all options of treatment for the patient, and the patient has elected to proceed with operative management. I have explained all risks, benefits, and alternatives of the proposed procedure. The risks that we have discussed include , blindness, nerve damage, infection, failure of surgery to alleviate pre-operative symptoms, and possible need for further operation. In addition to the aforementioned procedure, I also discussed with the patient that other procedures may be indicated during the course of surgery. The patient expressed understanding of this. Pre-operative: The proposed incision site was marked in the pre-operative holding area by me. The patient was then taken to the operating room in stable condition. Following smooth induction of general anesthesia, the patient was positioned on a fracture table with all down surfaces well-padded. The contralateral leg was placed into a well-leg suarez with an SCD boot and was well-padded. The patient was then prepped and draped in the usual sterile fashion. Pre-operative antibiotics were administered within one hour of the incision. Tranexamic acid was used to minimize bleeding. A surgical timeout was performed, and all parties involved in the procedure were in agreement on the correct patient, location, and procedure to be performed. Closed reduction: Using fluoroscopic guidance, traction, rotation, and abduction/adduction were used to obtain an acceptable closed reduction of the hip. Once an acceptable reduction was obtained by both AP and lateral radiographs, attention was turned to open reduction. Approach and opening reamer: All of the following steps were confirmed using intermittent fluoroscopic images as needed. A standard lateral approach to the hip was taken. Based on palpable ASIS and greater trochanteric landmarks, a 4cm incision was made in the skin parallel to the femur and ending just proximal to the greater trochanter. The fascia was incised in line with this. Electrocautery was used to coagulate all bleeding vessels. A guidewire was introduced through the abductors and onto the greater trochanter. This was then gently malleted into place to the level of the lesser trochanter. Placement was confirmed to be at the midpoint of the greater trochanter in the lateral plane as well. An opening reamer was then passed into the greater trochanter and all instruments were removed. Nail introduction: A long guidewire was then passed to the mid-femur. The femoral canal was then serially reamed to a size 12.5mm reamer, with an appropriate amount of chatter within the intramedullary canal. A size 11mm x 170mm nail was then malleted into place, and the long guidewire removed. Proximal helical blade: Using the proximal screw locking guide, a triple sleeve was attached and an incision was made through the proposed screw trajectory. The fascia was also incised at this level. A guide wire was then passed through the sleeve and onto the lateral border of the femur. It was advanced on all views to minimize total tip-apex distance. It was then measured and an appropriately-sized 90mm helical blade was selected. An opening reamer was used over the guidewire to create a portal in the lateral femoral cortex and was removed. A reamer was used over the guidewire to create a channel for the lag screw. The lag screw was then advanced over the guidewire and into place in the femoral head. The nail was then locked at the proximal end. Distal interlocking screws: Using a guide, both cortices were reamed and a 36mm screw was placed bicortically. Closure: The field was irrigated copiously with sterile saline. #1 vicryl suture was used to repair the fascia, 2-0 monofilament interrupted sutures were used to repair the dermal layer, and adina were used to close the skin. Sterile island dressings were applied over the surgical incisions. A surgical count was performed before initiation of closure and following the procedure, and all were correct. I was present for the entire procedure. Recovery: The patient was extubated uneventfully in the operating room. The patient was taken to the recovery room in stable condition. Sequential compression devices for VTE prophylaxis were applied to the patients lower extremities, and were ordered to be used while the patient was non-ambulatory. Chemical VTE prophylaxis was started post-operatively. Nayan Morales MD
--- NOTE | 2017-11-07 21:26 | CPEKG ---
Test Reason : OPEN Blood Pressure : / mmHG Vent. Rate : 087 BPM Atrial Rate : 085 BPM P-R Int : 144 ms QRS Dur : 089 ms QT Int : 380 ms P-R-T Axes : 000 079 -15 degrees QTc Int : 457 ms Atrial fibrillation Borderline repol abnrm, inferolateral leads Confirmed by Genaro Hernandez ([id number]) on 11/07/2017 9:25:59 PM Referred By: Confirmed By:Genaro Hernandez
[2017-11-07] MEDS: LATANOPROST 0.005% 2.5 ML OPHT DROPS EACHEYE SCH (21:44)
[2017-11-07] MEDS: PRAVASTATIN SODIUM 20 MG TAB PO SCH (21:46)
[2017-11-08] MEDS: ceFAZolin 2 GM/DEXTROSE 100 ML IV SCH ×2 (00:39→08:27)
[2017-11-08] MEDS: HYDROCODONE/APAP 5/325 TAB PO PRN ×4 (01:51→16:36)
[2017-11-08 05:16] LABS: INR 1.24 (0.83-1.16); PROTIME(PATIENT) 15.8 SEC (12.0-15.0)
[2017-11-08 05:17] LABS: PLATELET COUNT 122 10^3/uL (150-400)
[2017-11-08] MEDS: D5W 1/2 NS W/ 20 KCl/L 1,000 ML IV SCH (05:37)
[2017-11-08] MEDS: LEVOTHYROXINE 112 MCG TAB PO SCH (08:24)
[2017-11-08] MEDS: CHOLECALCIFEROL VIT D3 1,000 UNITS TAB PO SCH (08:24)
[2017-11-08] MEDS: METOPROLOL SUCCINATE XR 50 MG TAB PO SCH ×2 (08:25→23:49)
--- NOTE | 2017-11-08 13:14 | HOSPPROG ---
Hospitalist Progress Note Assessment/Plan: Intertrochanteric fracture of left femur s/p repair HTN, elevated due to pain Acute Pain Syndrome Chronic a-fib Warfarin-induced coagulopathy in setting of Chronic AC due to hx of Afib and hx of PE/DVT Hypotension this morning, transient, resolved -Hgb stable Plan: post op care per surgery, will need rehab ok to stop IVF Heparin for DVT proph I d/w the patients nurse who had called Ortho, [place] to restart warfarin tonight. Will not provide therapeutic bridge. Can likely stop Heparin tomorrow cont home meds including BB Hydralazine as needed for elevated bp pain mgmt Full code: this is change from admission as she now considers herself full code Subjective: no cp or sob. no n/v. some hypotension earlier. feels ok. Objective: Vital Signs Temp Pulse Resp BP Pulse Ox 36.6 C 84 16 125/82 H 97 11/08/17 11:57 11/08/17 11:57 11/08/17 11:57 11/08/17 11:57 11/08/17 11:57 Laboratory Results 11/08/17 11:15 11/08/17 04:20 11/07/17 11/08/17 11/09/17 05:59 05:59 05:59 Intake Total 0 2720 Output Total 950 1900 Balance -950 820 PT 15.8 SEC (12.0-15.0) H 11/08/17 04:20 INR 1.24 (0.83-1.16) H 11/08/17 04:20 - Physical Exam Constitutional: no apparent distress, appears nourished Eyes: PERRL, EOMI Ears, Nose, Mouth, Throat: moist mucous membranes Cardiovascular: irregularly irregular, No edema Respiratory: no respiratory distress, no rales or rhonchi, clear to auscultation Gastrointestinal: normoactive bowel sounds, soft, non-tender abdomen Skin: warm Musculoskeletal: generalized weakness Neurologic: AAOx3 Psychiatric: interacting appropriately, not anxious, not encephalopathic Lymph, Heme, Immunologic: No petechiae ICD10 Worksheet Patient Problems: Problems Problem Status Onset Chronic a-fib Acute Intertrochanteric fracture of left femur Acute Warfarin-induced coagulopathy Acute Bakers cyst Acute Osteoarthritis of right knee Acute Vision abnormalities Acute
[2017-11-08] MEDS ORDERED: ENOXAPARIN 40 MG/0.4 ML SYR SC SCH (13:15)
[2017-11-08] MEDS: HEPARIN 5,000 UNIT/0.5 ML INJ SC SCH ×2 (13:26→21:50)
--- NOTE | 2017-11-08 14:05 | ASMTCMCOM ---
CM Note CM Note Notes: PT/OT recommending inpatient rehab. Eval request put in and msg left for Devorah at [facility]. Date Signed: 11/08/2017 02:04 PM Electronically Signed By:HANG Valdez
[2017-11-08] MEDS ORDERED: WARFARIN SODIUM 2 MG TAB PO SCH (16:00)
[2017-11-08] MEDS ORDERED: LACTULOSE 20 GM/30 ML UDCUP PO PRN (16:22)
[2017-11-08] MEDS ORDERED: BISACODYL 10 MG SUPP PR PRN (16:22)
[2017-11-08] MEDS ORDERED: MAGNESIUM HYDROXIDE 30 ML UDCUP PO PRN (16:22)
[2017-11-08] MEDS: CYCLOBENZAPRINE 10 MG TAB PO SCH ×2 (16:37→21:55)
[2017-11-08] MEDS: NS 1,000 ML IV SCH (18:49)
[2017-11-08] MEDS ORDERED: LOSARTAN POTASSIUM 25 MG TAB PO SCH (21:00)
[2017-11-08] MEDS: SENNOSIDES/DOCUSATE SODIUM TAB PO SCH (21:51)
[2017-11-08] MEDS: PRAVASTATIN SODIUM 20 MG TAB PO SCH (21:55)
[2017-11-08] MEDS: LOSARTAN POTASSIUM 25 MG TAB PO SCH (23:50)
[2017-11-08] MEDS: LATANOPROST 0.005% 2.5 ML OPHT DROPS EACHEYE SCH (23:51)
[2017-11-09 04:46] LABS: INR 1.3 (0.83-1.16); PROTIME(PATIENT) 16.4 SEC (12.0-15.0)
[2017-11-09] MEDS: HEPARIN 5,000 UNIT/0.5 ML INJ SC SCH ×3 (06:05→20:54)
[2017-11-09] MEDS: POLYETHYLENE GLYCOL 3350 17 GM PKT PO PRN (08:23)
[2017-11-09] MEDS: CHOLECALCIFEROL VIT D3 1,000 UNITS TAB PO SCH (08:24)
[2017-11-09] MEDS: METOPROLOL SUCCINATE XR 50 MG TAB PO SCH ×2 (08:26→21:44)
[2017-11-09] MEDS: CYCLOBENZAPRINE 10 MG TAB PO SCH ×3 (08:27→20:56)
[2017-11-09] MEDS: SENNOSIDES/DOCUSATE SODIUM TAB PO SCH ×2 (08:27→20:59)
--- NOTE | 2017-11-09 12:04 | HOSPPROG ---
Hospitalist Progress Note Assessment/Plan: Intertrochanteric fracture of left femur s/p repair HTN, elevated due to pain Acute Pain Syndrome Chronic a-fib Warfarin-induced coagulopathy in setting of Chronic AC due to hx of Afib and hx of PE/DVT Hyponatremia -Hgb stable Plan: post op care per surgery, will need rehab Heparin for DVT proph Warfarin restarted last night. Will not provide therapeutic bridge. D/c Heparin today cont home meds including BB Hydralazine as needed for elevated bp pain mgmt Full code: this is change from admission as she now considers herself full code Dispo: Pending clinical course, will require rehab per OT recs Objective: Vital Signs Temp Pulse Resp BP Pulse Ox 36.4 C 104 H 18 105/58 L 90 L 11/09/17 08:00 11/09/17 08:00 11/09/17 08:00 11/09/17 08:00 11/09/17 08:00 Laboratory Results 11/08/17 11:15 11/09/17 04:19 11/08/17 11/09/17 11/10/17 05:59 05:59 05:59 Intake Total 2720 858 Output Total 1900 1125 300 Balance 820 -267 -300 PT 16.4 SEC (12.0-15.0) H 11/09/17 04:19 INR 1.30 (0.83-1.16) H 11/09/17 04:19 - Physical Exam Constitutional: no apparent distress Eyes: PERRL Ears, Nose, Mouth, Throat: moist mucous membranes Cardiovascular: irregularly irregular Respiratory: no respiratory distress Gastrointestinal: normoactive bowel sounds Genitourinary: no bladder tenderness Skin: warm Musculoskeletal: pain with ROM Neurologic: AAOx3 Psychiatric: interacting appropriately ICD10 Worksheet Patient Problems: Problems Problem Status Onset Chronic a-fib Acute Intertrochanteric fracture of left femur Acute Warfarin-induced coagulopathy Acute Bakers cyst Acute Osteoarthritis of right knee Acute Vision abnormalities Acute
[2017-11-09] MEDS: LEVOTHYROXINE 112 MCG TAB PO SCH (12:44)
[2017-11-09] MEDS: HYDROCODONE/APAP 5/325 TAB PO PRN (12:46)
[2017-11-09] MEDS: NS 1,000 ML IV SCH ×2 (12:53→22:14)
--- NOTE | 2017-11-09 15:00 | ASMTCMCOM ---
CM Note CM Note Notes: Spoke with Devorah at [facility] - they accept and anticipate patient tomorrow. I have notified hospitalist. Case Management will follow. Date Signed: 11/09/2017 02:59 PM Electronically Signed By:Bebe Ward RN
[2017-11-09] MEDS ORDERED: WARFARIN SODIUM 4 MG TAB PO ONE (16:00)
[2017-11-09] MEDS ORDERED: NS 1,000 ML IV ONE (17:30)
[2017-11-09] MEDS: PRAVASTATIN SODIUM 20 MG TAB PO SCH (20:56)
[2017-11-09] MEDS: LATANOPROST 0.005% 2.5 ML OPHT DROPS EACHEYE SCH (21:40)
[2017-11-09] MEDS: LOSARTAN POTASSIUM 25 MG TAB PO SCH (23:09)
[2017-11-10 05:08] LABS: INR 1.67 (0.83-1.16); PROTIME(PATIENT) 19.8 SEC (12.0-15.0)
[2017-11-10] MEDS: HYDROCODONE/APAP 5/325 TAB PO PRN ×2 (05:28→09:36)
[2017-11-10] MEDS: HEPARIN 5,000 UNIT/0.5 ML INJ SC SCH (05:28)
[2017-11-10] MEDS: LEVOTHYROXINE 112 MCG TAB PO SCH (05:35)
[2017-11-10 07:26] VITALS: BP 108/73
[2017-11-10] MEDS ORDERED: FUROSEMIDE 20 MG TAB PO SCH (09:00)
[2017-11-10] MEDS ORDERED: FUROSEMIDE 40 MG TAB PO SCH (09:00)
[2017-11-10] MEDS: CYCLOBENZAPRINE 10 MG TAB PO SCH (09:01)
[2017-11-10] MEDS: CHOLECALCIFEROL VIT D3 1,000 UNITS TAB PO SCH (09:02)
[2017-11-10] MEDS: SENNOSIDES/DOCUSATE SODIUM TAB PO SCH (09:03)
[2017-11-10] MEDS: METOPROLOL SUCCINATE XR 50 MG TAB PO SCH (09:03)
[2017-11-10] MEDS: POLYETHYLENE GLYCOL 3350 17 GM PKT PO PRN (09:08)
[2017-11-10] MEDS ORDERED: CEPACOL LOZENGE PO PRN (09:52)
--- NOTE | 2017-11-10 11:30 | PDDCSUM ---
Discharge Summary Discharge Summary: Date of Admission: 11/06/2017 Date of Discharge: 11/10/2017 Consults: Orthopaedics Procedures: Intertrochanteric fracture of left femur s/p repair Followup: Check INR daily until therapeutic Hospital Course Problem List: Intertrochanteric fracture of left femur s/p repair HTN, elevated due to pain Acute Pain Syndrome Chronic a-fib Warfarin-induced coagulopathy in setting of Chronic AC due to hx of Afib and hx of PE/DVT Hyponatremia Plan: post op care per surgery, will be discharged to IP rehab Warfarin restarted on 11/08. INR to be rechecked daily until therapeutic cont home meds including BB pain mgmt with PRN [place] Time spent on discharge >35 minutes with >50% of time spent on patient education and counseling
--- NOTE | 2017-11-10 11:32 | PDIAF ---
- Diagnosis Diagnosis: L Hip Fracture s/p Repair Code Status: Full Code - Medication Management Discharge Medications: Medications to Continue on Transfer C/E/Zn/Cu/OM3/DHA/EPA/LUT/ZEAX [Preservision Areds 2 Softgel] 1 cap PO BID 12/22 [Last Taken 11/06/17] Furosemide [Lasix 20 MG (*)] 20 mg PO Q2D 12/22/16 [Last Taken 11/06/17] Latanoprost 0.005% [Xalatan 0.005% (*)] 1 drops EACHEYE HS 12/22/16 [Last Taken 11/05/17] Levothyroxine Sodium 112 mcg PO DAILY 12/22/16 [Last Taken 11/06/17] Lovastatin 20 mg PO HS 12/22/16 [Last Taken 11/05/17] Warfarin Sodium [Coumadin 1MG (*)] 2 mg PO SUTUTHSA 12/22/16 [Last Taken ] Warfarin Sodium [Coumadin 3MG (*)] 1 mg PO MWF 12/22/16 [Last Taken 11/06/17] Cholecalciferol Vit D3 [Vitamin D3 (*)] 1,000 units PO DAILY 01/22/17 [Last Taken 11/06/17] Herbals/Supplements -Info Only 1 ea PO DAILY 01/22/17 [Last Taken 04/01/17] Acetaminophen [Tylenol 325mg (*)] 650 mg PO Q6HRS tab 01/28/17 [Last Taken ] Furosemide [Lasix 40 MG (*)] 40 mg PO Q2D 11/06/17 [Last Taken 11/05/17] Losartan Potassium [Cozaar 25 mg (*)] 25 mg PO HS 11/06/17 [Last Taken 11/05/17] Metoprolol Succinate Xr [Toprol Xl 50 mg (*)] 75 mg PO BID 11/06/17 [Last Taken 11/06/17] Hydrocodone/APAP 5/325 [Pollard 5/325 (*)] 1 - 2 tab PO Q4HRS PRN tab 11/10/17 [ Last Taken Unknown] Polyethylene Glycol 3350 [Miralax 17 gm (*)] 17 gm PO DAILY PRN pkt 11/10/17 [ Last Taken Unknown] Sennosides/Docusate Sodium [Senokot-S] 1 - 2 tab PO BID tab 11/10/17 [Last Taken Unknown] Discharge Medications: Refer to the Discharge Home Medication list for PRN reason. - Orders Isolation Type: None Diet Recommendation: no restrictions on diet Diet Texture: Regular Texture Diet - Labs/Radiology PT/INR Date: 11/11/17 (Continue to monitor for therapeutic level 2-3 ) - Follow Up Care Current Providers and Referrals: Vidhi Fenton MD [Primary Care Provider] - As per Instructions Kiet Blanchard MD [Medical Doctor] - As per Instructions
--- NOTE | 2017-11-10 12:28 | ASMTLACE ---
LACE Length of stay for Answers: 4-6 days current admission Acuity / Level of Answers: Yes Care: Did the patient have an inpatient admission? Comorbidities - select Answers: Congestive heart failure all that apply Coronary Artery Disease Opioid dependence / Chronic pain Other Notes: AFib; HTN # of Emergency department Answers: 1-2 visits in the last 6 months Score: 17 Date Signed: 11/10/2017 12:27 PM Electronically Signed By:HANG Haynes
--- NOTE | 2017-11-10 12:29 | ASMTCMCOM ---
CM Note CM Note Notes: Pt medically stable for d/c to [facility] inpatient rehab. Pt and request van transport. Only [facility] has availability, transport arranged for 12:30 and agrees to call prior to pickup to arrange payment. Orders to be obtained via [employer]. Date Signed: 11/10/2017 12:29 PM Electronically Signed By:HANG Haynes
--- NOTE | 2017-11-10 12:52 | PDCONSULT ---
Health Economist Note: I have discussed the patient's plan of care with her hospitalist. Today, she offered no unusual complaints. She has been discharged to a rehab facility. Moving forward, recommdations are as follows: WBAT LLE DVT ppx with warfarin (with maintenance of prior INR goals) f/u with me 2 wks after surgery for staple removal. Andrew
--- NOTE | 2017-11-10 12:57 | GPROG ---
DATE OF SERVICE: 11/08/2017 TIME: 12 p.m. I saw and evaluated the patient at noon on 11/08/2017. SUBJECTIVE: Overall, the patient offers no unusual complaints. She is a little bit lightheaded and has some mild hypotension, which I have discussed with the nurse; however, it appears to be normalizi ng. The patient's pain has been well controlled on an oral regimen. PHYSICAL EXAM: The legs are of equal length and of equal rotation. IMPRESSION: Postoperative day 1 status post left hip trochanteric fixation nail with a short nail. ASSESSMENT AND PLAN: From my perspective, the patient can resume any kind of anticoagulation. If sh e is not therapeutic with Coumadin yet, we will order some heparin 5000 units t.i.d. to start today. I have both ordered and discussed this with the nurse. From my perspective, she is weightbearing as tolerated with a walker for protected weightbearing. She can be discharged whenever she is medicall y cleared by the hospitalist and can see me 2 weeks after the surgery for staple removal. The felicity leal has my office information, which was given to both her and the . /[id number]/MODL
--- NOTE | 2017-11-10 12:57 | GPROG ---
DAILY PROGRESS NOTE DATE OF SERVICE: 11/09/2017 TIME SEEN: 12:00 p.m. Overall, the patient has done well. Her pain is well controlled on oral regimen and she offers no un usual complaints. The pain seems to be getting better over the last couple of days. I have discusse d plan of care with the patient's nurse as well. PHYSICAL EXAM: SKIN: Her dressings are clean, dry, and intact, and left in place. EXTREMITIES: The leg is neurovascularly intact. Exam limited by pain. The legs are of equal length and rotation. IMPRESSION: Postop day 2, status post left hip short titanium trochanteric fixation nail. ASSESSMENT AND PLAN: From my perspective, patient may be discharged at any point when cleared from [facility]. She should be protected weightbearing, and will see me in the office in 2 weeks. I have discussed this with the patient and her as well as the patient's nurse. /[id number]/MODL
--- NOTE | 2017-11-11 14:18 | ASDISCHSUM ---
Discharge Information Plan Status:Inpatient Rehab Medically Cleared to Leave: Discharge Date:11/10/2017 01:19 PM CM D/C Disposition:[facility] IP ADT D/C Disposition:[facility] IP Projected Discharge Date:11/10/2017 11:00 AM Transportation at D/C:Wheelchair Van Discharge Delay Reason: Follow-Up Date:11/10/2017 11:00 AM Discharge Slot: Final Diagnosis: Placement Information Referral Type:Rehabilitation Hospital Referral ID:[id number] Provider Name:[facility] Address 1:[address] Phone Number: Address 2: Fax Number: [facility]:[place] Selection Factors: State:[place] Patient Contact Information Contact Name:CAMPBELL Relationship: Address:[address] City:[place] Alternate Phone: State/Zip Code:[place] [address] Email: Financial Information Financial Class:Medicare Primary Plan Desc:MEDICARE INPATIENT Primary Plan Number:[id number] Secondary Plan Desc:[employer]/MDR SUPPLEMENT Secondary Plan Number:[id number] Assessment Information LACE LACE Length of stay for Answers: 4-6 days current admission Acuity / Level of Answers: Yes Care: Did the patient have an inpatient admission? Comorbidities - select Answers: Congestive heart failure all that apply Coronary Artery Disease Opioid dependence / Chronic pain Other Notes: AFib; HTN # of Emergency department Answers: 1-2 visits in the last 6 months Score: 17 Date Signed: 11/10/2017 12:27 PM Electronically Signed By:HANG Haynes [facility] CM Progress Note CM Note CM Note Notes: Pt admitted with a L hip fx after a mechanical fall. She has a hx of afib. Surgery planned, PT/OT evals pending. CM will follow for any d/c needs. Pt lives independently with her . D/C plan: TBD Date Signed: 11/07/2017 04:32 PM Electronically Signed By:HANG Valdez [facility] CM Progress Note CM Note CM Note Notes: PT/OT recommending inpatient rehab. Eval request put in and msg left for Devorah at [facility]. Date Signed: 11/08/2017 02:04 PM Electronically Signed By:HANG Valdez [facility] CM Progress Note CM Note CM Note Notes: Spoke with Devorah at [facility] - they accept and anticipate patient tomorrow. I have notified hospitalist. Case Management will follow. Date Signed: 11/09/2017 02:59 PM Electronically Signed By:Bebe Ward RN [facility] CM Progress Note CM Note CM Note Notes: Pt medically stable for d/c to [facility] inpatient rehab. Pt and request w[facility] van transport. Only [facility] has availability, transport arranged for 12:30 and agrees to call prior to pickup to arrange payment. Orders to be obtained via [employer]. Date Signed: 11/10/2017 12:29 PM Electronically Signed By:HANG Haynes Intervention Information Intervention Type:*IM-Signed Date of Service:11/10/2017 11:49 AM Patient Type:Inpatient Staff Member:Daphne Cool Hours: Discipline: Severity: Comment:
== END 2017-11-10 13:19 | DRG 481 ==
LOC: EDUNIT# → F3N 11:56
PROVIDERS: ADMIT Family Medicine; ATTEND Internal Medicine
PROC: 0QS706Z Reposition Left Upper Femur with Intramedullary Internal Fixation Device, Open Approach (ICD-10-PCS; principal; 2017-11-07 16:30)
DX: S72.142A Displaced intertrochanteric fracture of left femur, initial encounter for closed fracture (principal); W08.XXXA Fall from other furniture, initial encounter; Y93.E1 Activity, personal bathing and showering; Y92.39 Other specified sports and athletic area as the place of occurrence of the external cause; Y99.8 Other external cause status; E87.1 Hypo-osmolality and hyponatremia; I95.81 Postprocedural hypotension; Z86.711 Personal history of pulmonary embolism; Z79.01 Long term (current) use of anticoagulants; I48.91 Unspecified atrial fibrillation; I10 Essential (primary) hypertension; E78.5 Hyperlipidemia, unspecified; E03.9 Hypothyroidism, unspecified; H40.9 Unspecified glaucoma; Z96.651 Presence of right artificial knee joint
CPT/HCPCS: 96374; 97116-GP; 97161-GP; 97165-GO; 97530-GO; 97530-GP; 97535-GO; C1713; G8978-GP-CK; G8979-GP-CJ; G8980-GP-CJ; G8987-GO-CK; G8988-GO-CI; J0360; J0690; J1644; J2250; J2270; J2405; J2704; J3010; J3430

== ENCOUNTER 2017-11-10 12:55 | Inpatient (IN) | payer OTHER, MEDICARE ==
[2017-11-10] MEDS ORDERED: CEPACOL LOZENGE PO PRN (14:03)
[2017-11-10] MEDS ORDERED: ACETAMINOPHEN 325 MG TAB PO PRN (14:23)
[2017-11-10] MEDS ORDERED: BISACODYL 10 MG SUPP PR PRN (14:26)
--- NOTE | 2017-11-10 15:11 | GHP ---
POST ADMISSION PHYSICIAN EVALUATION AND REHABILITATION TREATMENT PLAN DATE OF ADMISSION: 11/10/2017 DATE OF EVALUATION: 11/10/2017 TIME OF EVALUATION: 1350 REFERRING FACILITY: [facility] REFERRING PHYSICIAN: Dr. Shah IMPAIRMENT GROUP: 8.11 DATE OF ONSET: 11/06/2017 REHABLITATION DIAGNOSIS: Debility, status post left hip intertrochanteric fracture with open reduction/internal fixation. ETIOLOGIC DIAGNOSIS: Unilateral hip fracture. DATE OF SURGERY: 11/07/2017 HISTORY OF PRESENT ILLNESS: This patient fell. It was a mechanical fall from standing. She suffered a left intertrochanteric hip fracture. She had an ORIF with an intramedullary nail done on 11/07/2017. She has atrial fibrillation and a history of pulmonary emboli and was on warfarin. Warfarin was held, and her INR drifted down. She was treated with heparin for several days as her INR was increasing. Since the resumption of warfarin, heparin has not been continued on hospital discharge. She has a history of hypertension and had some elevated blood pressures due to pain. She had hyponatremia in the hospital. She was medically stabilized, participating in therapy, and appropriate for inpatient rehabilitation. OTHER LABS AND STUDIES DURING HER STAY: INR on the day of discharge, 11/10/2017 , is 1.67. CBC showed very mild anemia on 11/08 with a hemoglobin of 12.4. She developed thrombocytopenia. On admission, platelets were 169. On 11/07, they were 147. On 11/08, they were 122. Serum chemistry showed normal renal function and electrolytes overall on admission, though she had an elevated carbon dioxide. On 11/09, she developed mild hyponatremia with a sodium of 133. On 11/10, it is 134. Imaging showed the hip fracture, and pelvic x-ray after surgery showed normal alignment. EKG on 11/06/2017, showed atrial fibrillation. PRECAUTIONS: She is a fall risk. ACTIVE COMORBIDITIES: She has no active tier 1, tier 2, or tier 3 comorbidities. PAST MEDICAL HISTORY: 1. Congestive heart failure with reduced ejection fraction of the right and left ventricles, valvular regurgitation on the aortic, mitral, and tricuspid valves, and biatrial enlargement. 2. Atrial fibrillation. 3. Pulmonary emboli. 4. Osteoarthritis of the right knee. 5. Glaucoma. 6. Donovan cyst. 7. Hypertension. 8. Dyslipidemia. 9. Hypothyroidism. PAST SURGICAL HISTORY: She has had a right knee replacement, and she has had a hysterectomy. PREHOSPITAL MEDICATIONS: 1. PreserVision vitamins b.i.d. 2. Furosemide 20 mg and 40 mg on alternating days. 3. Latanoprost 0.005% 1 drop each eye q.h.s. 4. Levothyroxine 112 mcg p.o. daily. 5. Lovastatin 20 mg p.o. daily. 6. Warfarin 2 mg on Thursday, Thursday, , and Thursday, and 1 mg on Thursday , Thursday, and Thursday. 7. Cholecalciferol 1000 units p.o. daily. 8. Acetaminophen 650 mg p.o. q.6 hours p.r.n. 9. Losartan 25 mg p.o. q.h.s. 10. Metoprolol succinate XR 75 mg p.o. b.i.d. ADMISSION MEDICATIONS: 1. Acetaminophen 650 mg p.o. q.6 hours. 2. Hydrocodone/acetaminophen 1 to 2 tabs p.o. q.4 hours p.r.n. 3. Cholecalciferol 1000 units p.o. daily. 4. Furosemide 40 mg and 20 mg on alternating days. 5. Latanoprost 0.005% 1 drop each eye q.h.s. 6. Levothyroxine 112 mcg p.o. daily. 7. Losartan 25 mg p.o. q.h.s. 8. Metoprolol succinate XR 75 mg p.o. daily. 9. Multivitamin PreserVision 1 p.o. b.i.d. 10. Polyethylene glycol 17 g p.o. daily p.r.n. 11. Pravastatin 20 mg p.o. q.h.s. 12. Senna/docusate 1 to 2 p.o. b.i.d. 13. Warfarin to be dosed by Pharmacy. ALLERGIES: Listed to azithromycin, gluten, lactose, latex, penicillins, codeine , and tape. PSYCHOSOCIAL HISTORY: She is and lives with her . She has 3 adult daughters, 1 of whom is in [place] and the other 2 are in [place] and [place], [place]. She is a nonsmoker, but her first was a chronic smoker, so she had secondhand smoke exposure. 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 She lives with her . There are 2 steps to enter the house. She can then live on one level. FAMILY HISTORY: Noncontributory. REVIEW OF SYSTEMS: She had a small bowel movement this morning. Otherwise, she has been constipated since her hospital admission on 11/06/2017. She ate a good lunch but otherwise has had reduced appetite. She has pain when she moves , but is comfortable at rest, and pain is not interfering with sleep. She has been using oxygen in the hospital and did not do so at home. She has an occasional cough with white sputum. She denies dyspnea. She denies fevers or chills. She denies nausea or vomiting. She denies dysuria or urinary frequency. Her weight has been stable. Otherwise, a 10-point review of systems is negative. PHYSICAL EXAM: VITALS: Blood pressure is 108/71, heart rate is 95, respiratory rate is 18, oxygen saturation is 97% on 2 L. Her weight is 53 kg, for a body mass index of 21.4. GENERAL: This is a well-nourished, well- developed woman lying in bed, dressed in street clothes, cooperative, and in no acute distress. HEENT: Extraocular movements are intact. Pupils are equal, round, and reactive to light. Mucous membranes are moist. Dentition is in good condition. She has a moderately crowded airway, Mallampati class 3. NECK : Supple. HEART: There is an irregularly irregular rhythm. There is a systolic murmur. There is minimal JVD. LUNGS: There are few crackles at the left lower lobe. Otherwise, lungs are clear to auscultation bilaterally. ABDOMEN: Soft, diffusely mildly tender, somewhat distended, with normoactive bowel sounds and no hepatosplenomegaly. EXTREMITIES: There is no cyanosis, clubbing, or edema. Radial and dorsalis pedis pulses are 2+ bilaterally. There is no calf tenderness. NEUROLOGIC: She is alert and oriented x3. Cranial nerves 2 through 12 are grossly intact. There is no focal weakness, and sensation is intact to light touch. CURRENT LEVEL OF FUNCTION: Per the preadmission screen. Regarding diet, feeding, and swallowing, she was on a regular diet. For grooming, she needed setup. Lower body dressing required maximal assistance. Bed mobility required moderate to maximal assistance with voice cues. Transfers were done with minimal assistance and voice cues. She used a front-wheeled walker. Balance standing required minimal assist and voice cues. Endurance was fair. She was able to ambulate 50 feet with minimal assist and voice cues. Communication and cognition were normal. On today's exam, there is no significant change from the preadmission screen. IMPRESSION: This is an 82-year-old woman who suffered a mechanical fall, landing on her left hip, and had a left intertrochanteric femur fracture. She came to the hospital on 11/06/2017, and had surgery with intramedullary nailing on 11/07/2017. Hospital course was complicated by pain management and elevated blood pressure. She reports she is overall comfortable on her current pain regimen and is able to sleep and participate in rehabilitation. She is requiring oxygen which she did not require prior to her hospitalization. She has a history of pulmonary emboli, congestive heart failure, and secondhand smoke exposure, which may be contributing to her hypoxemia. She is otherwise medically stable and appropriate for rehabilitation. Her goal is to complete a rehabilitation stay and then return home with her . For a safe discharge she will need to achieve modified independence for all ADLs, transfers, and ambulation with the least restrictive device for community distances. She will need to have adequate pain management to be able to weight bear on her left lower extremity. It is likely she will continue to require assistance for household management, shopping, and meals. Her blood pressure will need to be well controlled, and her INR will need to be therapeutic. She will have therapy with physical therapy and occupational therapy for 90 minutes per day for each discipline on 5 to 7 days of the week. Her expected duration of stay is 7 to 10 days. It is anticipated that upon discharge, she will continue to benefit from home health services including nursing, occupational therapy, and physical therapy. PLAN: 1. Left intertrochanteric femur fracture, status post intramedullary nailing. PT and OT to optimize mobility and functional status to the modified independent level. 2. Pain management. Will change acetaminophen 650 mg to q.6 hours p.r.n. because if it is scheduled, she will have her maximum dose of acetaminophen and will not be able to receive any hydrocodone/acetaminophen combination. If pain management is not adequate, we will discontinue the hydrocodone/acetaminophen combination and initiate oxycodone so that she can have a higher opiate dose. Alternately, might consider initiating tramadol. 3. Congestive heart failure and hypoxia, also with history of pulmonary emboli and a history of secondhand smoke exposure. Continue oxygen. She will have incentive spirometry. We will check a BNP with morning labs. Continue medications for heart failure with losartan, metoprolol, and furosemide. 4. Hypertension. Continue losartan and metoprolol. Continue her antihypertensives, monitor her blood pressures, and adjust medications as needed. 5. History of pulmonary embolus and atrial fibrillation. Continue warfarin, with dosing to be managed by Pharmacy. 6. Thrombocytopenia. Will recheck CBC in the morning. I have also ordered a test for heparin-induced antibody. It appears that thrombocytopenia occurred previously when she had her right knee replacement, and it could she was on heparin at that time, also. If she does have heparin-induced thrombocytopenia, it will be useful information for her to know going forward. She is not currently continuing heparin. 7. Hyponatremia. Will check BMP in the morning and will evaluate further if it is not improving. 8. Glaucoma. Continue latanoprost. 9. Hypothyroidism. Continue levothyroxine. 10. Constipation. Continue current bowel program. I will add bisacodyl suppository for one more option. 11. Prophylaxis. Continue warfarin. If INR continues to be significantly subtherapeutic, will consider bridging, though given the suspicion for heparin- induced thrombocytopenia, we will not use heparin or heparinoid products. There is no indication for GI prophylaxis. 12. Followup. She will follow up with her primary orthopedist, Dr. Kiet Blanchard, after her discharge. Her primary care provider is Dr. Vidhi Fenton. She is to follow up with orthopedic surgeon, Dr. Morales, in approximately 2 weeks from her surgery, which would be 11/21/2017, for followup and staple removal. Will inquire of the orthopedic service or nursing on the discharging unit regarding plan for wound care and dressing changes. /[id number]/MODL MTDD
[2017-11-10] MEDS ORDERED: WARFARIN SODIUM 2 MG TAB PO ONE (16:00)
--- NOTE | 2017-11-10 17:55 | PDOREHIP ---
Admission [facility] - Admission - 3 Day Assessment Period Admission Date/Day 1: 11/10/17 Day 2: 11/11/17 Day 3: 11/12/17 - Active Diagnoses Comorbidities and Co-existing Conditions at Admission: 86622. None of the Above - Skin Conditions Unhealed Pressure Ulcer (1 or more/Stage 1 or >)-Admission: 0. No
[2017-11-10] MEDS ORDERED: ACETAMINOPHEN 325 MG TAB PO SCH (18:00)
[2017-11-10] MEDS: LATANOPROST 0.005% 2.5 ML OPHT DROPS EACHEYE SCH (19:33)
[2017-11-10] MEDS: HYDROCODONE/APAP 5/325 TAB PO PRN (19:36)
[2017-11-10] MEDS: SENNOSIDES/DOCUSATE SODIUM TAB PO SCH (19:37)
[2017-11-10] MEDS: PRESERVISION AREDS2 FORMULA EYE VIT 1 EACH PO SCH (19:37)
[2017-11-10] MEDS: PRAVASTATIN SODIUM 20 MG TAB PO SCH (19:37)
[2017-11-10] MEDS: LOSARTAN POTASSIUM 25 MG TAB PO SCH (20:04)
[2017-11-11] MEDS: HYDROCODONE/APAP 5/325 TAB PO PRN ×2 (06:44→12:07)
[2017-11-11] MEDS ORDERED: LEVOTHYROXINE 112 MCG TAB PO SCH (09:00)
[2017-11-11] MEDS ORDERED: Herbals/Supplements -Info Only PO SCH (09:00)
--- NOTE | 2017-11-11 09:18 | SOAPPROG ---
SOAP Progress Note Assessment/Plan: Assessment: Left intertrochanteric femur fracture, status post intramedullary nailing. PT and OT to optimize mobility and functional status to the modified independent level. Pain management. Inadequate control on hydrocodone/acetaminophen combination q.4 hours p.r.n.. * Discontinue hydrocodone/acetaminophen, 11/11/2017. * Schedule acetaminophen 1000 mg q.8 hours p.r.n. * Initiate oxycodone 2.5-10 mg q.3 hours p.r.n.. Congestive heart failure and hypoxia, also with history of pulmonary emboli and a history of secondhand smoke exposure. Continue oxygen as needed. She will have incentive spirometry. Continue medications for heart failure with losartan , metoprolol, and furosemide. * BNP a markedly elevated at 5310 on 11/11/2017. Continue to monitor clinically. Consider repeat BNP. Hypertension. Continue losartan and metoprolol. Continue her antihypertensives , monitor her blood pressures, and adjust medications as needed. History of pulmonary embolus and atrial fibrillation. Continue warfarin, with dosing to be managed by Pharmacy. Anemia, postoperative. Check reticulocyte count and iron panel. Thrombocytopenia. Resolved on CBC 11/11/2017. Await result of heparin-induced antibody test. It appears that thrombocytopenia occurred previously when she had her right knee replacement, and it could she was on heparin at that time, also. If she does have heparin-induced thrombocytopenia, it will be useful information for her to know going forward. Hyponatremia. Resolved on labs 11/11/2017. Glaucoma. Continue latanoprost. Hypothyroidism. Continue levothyroxine. Constipation. Continue current bowel program with polyethylene glycol daily, senna twice a day, physical suppository and enema available p.r.n. Prophylaxis. Continue warfarin, managed by Pharmacy. There is no indication for GI prophylaxis. FOLLOW-UP: She will follow up with her primary orthopedist, Dr. Kiet Blanchard, after her discharge. Her primary care provider is Dr. Vidhi Fenton. She is to follow up with orthopedic surgeon, Dr. Morales, in approximately 2 weeks from her surgery, which would be 11/21/2017, for followup and staple removal. Left message 11/11/[address] Morales regarding plan for wound care and dressing changes. 11/11/17 14:48 Subjective: Has constipation x5 days. Has left hip pain especially if she starts moving after being at rest for while. Has been tolerating therapies. Slept well. No abdominal pain. No cough or dyspnea. Objective: Vital Signs Temp Pulse Resp BP Pulse Ox 36.4 C 98 16 115/68 94 11/11/17 07:12 11/11/17 07:12 11/11/17 07:12 11/11/17 07:12 11/10/17 20:00 11/10/17 11/11/17 11/12/17 05:59 05:59 05:59 Intake Total 350 Balance 350 Physical Exam - Physical Exam General Appearance: WD/WN, alert, no apparent distress Respiratory: No respiratory distress, No accessory muscle use Cardiac/Chest: No edema Abdomen: normal bowel sounds, non-tender, soft, distended Skin: normal color, warm/dry Neuro/Psych: no motor/sensory deficits, alert, normal mood/affect, oriented x 3 ICD10 Worksheet Patient Problems: Problems Problem Status Onset Bakers cyst Acute Chronic a-fib Acute Intertrochanteric fracture of left femur Acute Osteoarthritis of right knee Acute Vision abnormalities Acute Warfarin-induced coagulopathy Acute
[2017-11-11] MEDS: SENNOSIDES/DOCUSATE SODIUM TAB PO SCH ×2 (09:44→19:42)
[2017-11-11] MEDS: FUROSEMIDE 40 MG TAB PO SCH (09:44)
[2017-11-11] MEDS: PRESERVISION AREDS2 FORMULA EYE VIT 1 EACH PO SCH ×2 (09:44→19:40)
[2017-11-11] MEDS: CHOLECALCIFEROL VIT D3 1,000 UNITS TAB PO SCH (09:45)
[2017-11-11] MEDS: POLYETHYLENE GLYCOL 3350 17 GM PKT PO PRN (09:45)
[2017-11-11] MEDS: METOPROLOL SUCCINATE XR 50 MG TAB PO SCH (09:56)
[2017-11-11 11:03] LABS: PLATELET COUNT 153 10^3/uL (150-400)
[2017-11-11 11:13] LABS: INR 2.08 (0.83-1.16); PROTIME(PATIENT) 23.4 SEC (12.0-15.0)
[2017-11-11] MEDS ORDERED: WARFARIN SODIUM 2 MG TAB PO ONE (16:00)
[2017-11-11] MEDS: PRAVASTATIN SODIUM 20 MG TAB PO SCH (19:40)
[2017-11-11] MEDS ORDERED: ACETAMINOPHEN 500 MG TAB ONE (19:42)
[2017-11-11] MEDS: LATANOPROST 0.005% 2.5 ML OPHT DROPS EACHEYE SCH (19:43)
[2017-11-11] MEDS ORDERED: METHOCARBAMOL 750 MG TAB ONE (19:55)
[2017-11-11] MEDS: LOSARTAN POTASSIUM 25 MG TAB PO SCH (19:57)
[2017-11-11] MEDS: ACETAMINOPHEN 500 MG TAB PO SCH (20:24)
[2017-11-11] MEDS: METHOCARBAMOL 750 MG TAB PO SCH (20:25)
[2017-11-12] MEDS: ACETAMINOPHEN 500 MG TAB PO SCH ×3 (05:11→20:38)
[2017-11-12] MEDS: LEVOTHYROXINE 112 MCG TAB PO SCH (05:11)
[2017-11-12] MEDS: METHOCARBAMOL 750 MG TAB PO SCH (05:12)
[2017-11-12 08:34] LABS: INR 3.09 (0.83-1.16); PROTIME(PATIENT) 31.7 SEC (12.0-15.0)
[2017-11-12] MEDS ORDERED: FUROSEMIDE 20 MG TAB PO SCH (09:00)
[2017-11-12] MEDS: SENNOSIDES/DOCUSATE SODIUM TAB PO SCH ×2 (09:46→19:28)
[2017-11-12] MEDS: POLYETHYLENE GLYCOL 3350 17 GM PKT PO PRN (09:46)
[2017-11-12] MEDS: PRESERVISION AREDS2 FORMULA EYE VIT 1 EACH PO SCH ×2 (09:46→19:27)
[2017-11-12] MEDS: FERROUS SULFATE 325 MG TAB PO SCH (09:46)
[2017-11-12] MEDS: CHOLECALCIFEROL VIT D3 1,000 UNITS TAB PO SCH (09:46)
[2017-11-12] MEDS: METOPROLOL SUCCINATE XR 50 MG TAB PO SCH (09:47)
[2017-11-12] MEDS: METHOCARBAMOL 750 MG TAB PO PRN ×2 (12:09→19:50)
--- NOTE | 2017-11-12 14:22 | SOAPPROG ---
SOAP Progress Note Assessment/Plan: Assessment: Left intertrochanteric femur fracture, status post intramedullary nailing on . * Initial functional independence measure is 75 on 11/12/2017. She needs moderate to maximal assistance for bed mobility. He had 110 ft with minimal assist using a front wheeled walker. She can self propel a wheelchair 60 ft. Upper body dressing requires setup to standby assist. Lower body dressing requires moderate assistance. Shower was done with close standby assist and she needed minimal assist to dry her feet. Transfers for shower and toilet required minimal assist. * Continue PT and OT to optimize mobility and functional status to the modified independent level. Pain management. Inadequate control on hydrocodone/acetaminophen combination q.4 hours p.r.n.. * Discontinue hydrocodone/acetaminophen, 11/11/2017. * Schedule acetaminophen 1000 mg q.8 hours p.r.n. * Initiate oxycodone 2.5-10 mg q.3 hours p.r.n.; has not been using. Congestive heart failure and hypoxia, also with history of pulmonary emboli and a history of secondhand smoke exposure. Continue oxygen as needed. She will have incentive spirometry. Continue medications for heart failure with losartan , metoprolol, and furosemide. * BNP a markedly elevated at 5310 on 11/11/2017. Continue to monitor clinically. Consider repeat BNP. * Tachycardia and increased hypoxemia down to 84% on room air on 11/12/2017. Wound care discussed with Dr. Mike Reeves, 11/11/2017. Leave dressing in place for 1 week; remove 11/16/2017. [place] are to be removed 2 weeks post surgery which would be 11/20/2017. Hypertension. Continue losartan and metoprolol. Continue her antihypertensives , monitor her blood pressures, and adjust medications as needed. History of pulmonary embolus and atrial fibrillation. Continue warfarin, with dosing to be managed by Pharmacy. Anemia, postoperative. * Appropriate reticulocytosis. * Iron deficient; iron supplement begun 11/12/2017. Should continue for approximately a month, to 12/11/2017. Thrombocytopenia. Resolved on CBC 11/11/2017. Await result of heparin-induced antibody test. It appears that thrombocytopenia occurred previously when she had her right knee replacement, and it could she was on heparin at that time, also. If she does have heparin-induced thrombocytopenia, it will be useful information for her to know going forward. Hyponatremia. Resolved on labs 11/11/2017. Glaucoma. Continue latanoprost. Hypothyroidism. Continue levothyroxine. Constipation. Continue current bowel program with polyethylene glycol daily, senna twice a day, bisacodyl suppository and enema available p.r.n. Prophylaxis. Continue warfarin, managed by Pharmacy. There is no indication for GI prophylaxis. DISPOSITION: Attended staffing, 15 min. Discussed with case management, nursing, PT, OT. Lives at home with her . Home is ADA compliant and she can live on 1 level. Tentative discharge date set for 11/19/2017. She will have PT and OT home care. FOLLOW-UP: She will follow up with her primary orthopedist, Dr. Kiet Blanchard, after her discharge. Her primary care provider is Dr. Vidhi Fenton. She is to follow up with orthopedic surgeon, Dr. Morales, in approximately 2 weeks from her surgery, which would be 11/21/2017, for followup and staple removal. 11/12/17 14:22 Subjective: Nurse notes increased oxygen requirement this afternoon. She denies cough or orthopnea she does not feel dyspneic she has some left upper chest pain but reports is similar to her history of costochondritis. Pain is not pleuritic. Still has constipation. Has had some calf pain. Feels fatigued because she has been working hard in therapies today. Sleeping well. Objective: Vital Signs Temp Pulse Resp BP Pulse Ox 36.9 C 106 H 18 116/72 90 L 11/12/17 13:40 11/12/17 13:57 11/12/17 13:57 11/12/17 13:40 11/12/17 13:57 Laboratory Results 11/11/17 10:15 11/11/17 10:15 11/11/17 11/12/17 11/13/17 05:59 05:59 05:59 Intake Total 350 540 400 Output Total 200 Balance 350 340 400 PT 31.7 SEC (12.0-15.0) H 11/12/17 06:20 INR 3.09 (0.83-1.16) H 11/12/17 06:20 - Time Spent With Patient Time Spent With Patient: Greater than 35 min floor time today, including more than 50% of time in coordination of care during staffing meeting and in discussion with the Cardiology Service, and counseling patient and . Physical Exam - Physical Exam General Appearance: WD/WN, alert, no apparent distress Respiratory: normal breath sounds, crackles (left lower lobe), No rhonchi, No wheezing Cardiac/Chest: edema (1+ B LE), JVD, irregularly irregular, No diastolic murmur , No systolic murmur Abdomen: normal bowel sounds, non-tender, soft, distended (mildly) Skin: normal color, warm/dry Extremities: No calf tenderness Neuro/Psych: no motor/sensory deficits, alert, normal mood/affect, oriented x 3 ICD10 Worksheet Patient Problems: Problems Problem Status Onset Bakers cyst Acute Chronic a-fib Acute Intertrochanteric fracture of left femur Acute Osteoarthritis of right knee Acute Vision abnormalities Acute Warfarin-induced coagulopathy Acute
[2017-11-12] MEDS: oxyCODONE IR 5 MG TAB PO PRN (15:00)
[2017-11-12] MEDS ORDERED: IOPAMIDOL (ISOVUE 370) 100 ML BTL IV ONE (16:25)
[2017-11-12] MEDS: PRAVASTATIN SODIUM 20 MG TAB PO SCH (19:28)
[2017-11-12] MEDS: LATANOPROST 0.005% 2.5 ML OPHT DROPS EACHEYE SCH (19:28)
[2017-11-12] MEDS: LOSARTAN POTASSIUM 25 MG TAB PO SCH (19:44)
[2017-11-13] MEDS: LEVOTHYROXINE 112 MCG TAB PO SCH (06:15)
[2017-11-13] MEDS: ACETAMINOPHEN 500 MG TAB PO SCH ×3 (06:15→21:05)
[2017-11-13 08:06] LABS: INR 3.05 (0.83-1.16); PROTIME(PATIENT) 31.4 SEC (12.0-15.0)
[2017-11-13] MEDS: POLYETHYLENE GLYCOL 3350 17 GM PKT PO PRN (08:38)
[2017-11-13] MEDS: PRESERVISION AREDS2 FORMULA EYE VIT 1 EACH PO SCH ×2 (08:38→21:04)
[2017-11-13] MEDS: FERROUS SULFATE 325 MG TAB PO SCH (08:39)
[2017-11-13] MEDS: CHOLECALCIFEROL VIT D3 1,000 UNITS TAB PO SCH (08:39)
[2017-11-13] MEDS: FUROSEMIDE 40 MG TAB PO SCH (08:40)
[2017-11-13] MEDS: SENNOSIDES/DOCUSATE SODIUM TAB PO SCH ×2 (08:41→21:03)
[2017-11-13] MEDS: METOPROLOL SUCCINATE XR 50 MG TAB PO SCH (08:41)
--- NOTE | 2017-11-13 10:28 | SOAPPROG ---
SOAP Progress Note Assessment/Plan: Assessment: Left intertrochanteric femur fracture, status post intramedullary nailing on . * Initial functional independence measure is 75 on 11/12/2017. She needs moderate to maximal assistance for bed mobility. Walked 110 ft with minimal assist using a front wheeled walker. She can self propel a wheelchair 60 ft. Upper body dressing requires setup to standby assist. Lower body dressing requires moderate assistance. Shower was done with close standby assist and she needed minimal assist to dry her feet. Transfers for shower and toilet required minimal assist. * Continue PT and OT to optimize mobility and functional status to the modified independent level. Pain management. Inadequate control on hydrocodone/acetaminophen combination q.4 hours p.r.n.. * Discontinue hydrocodone/acetaminophen, 11/11/2017. * Schedule acetaminophen 1000 mg q.8 hours p.r.n. * Initiate oxycodone 2.5-10 mg q.3 hours p.r.n.; has not been using. Congestive heart failure and hypoxia, also with history of pulmonary emboli and a history of secondhand smoke exposure. Continue oxygen as needed. She will have incentive spirometry. Continue medications for heart failure with losartan , metoprolol, and furosemide. * BNP a markedly elevated at 5310 on 11/11/2017. Continue to monitor clinically. Consider repeat BNP. * Tachycardia and increased hypoxemia down to 84% on room air on 11/12/2017. Sent for chest CT to rule out pulmonary embolus. * Discussed with Merrill Lynn, cardiology PA, [phone] to, 11/13/2017. Change furosemide from 20 mg and 40 mg on alternate days to 40 mg q.day. Increase metoprolol succinate from 75 mg q.day to 100 mg q.day, with an extra 25 mg dose on 11/13/2017. * Daily weights. Advised contacting Cardiology again if weight increases by more than 2 kg. * Recheck BMP, BNP on 11/14/2017. Pulmonary emboli, right lung, subsegmental lower middle and upper lobes, on chest CT 11/12/2017. * Likely happened when INR was allowed to drift down so that she could have surgery for her hip fracture. * Continue warfarin. Initiate compression stockings. Wound care discussed with Dr. Morales, 11/11/2017. Leave dressing in place for 1 week; remove 11/16/2017. [place] are to be removed 2 weeks post surgery which would be 11/20/2017. Hypertension. Continue losartan and metoprolol. Continue her antihypertensives , monitor her blood pressures, and adjust medications as needed. History of pulmonary embolus and atrial fibrillation. Continue warfarin, with dosing to be managed by Pharmacy. Anemia, postoperative. * Appropriate reticulocytosis. * Iron deficient; iron supplement begun 11/12/2017. Should continue for approximately a month, to 12/11/2017. Thrombocytopenia. Resolved on CBC 11/11/2017. Await result of heparin-induced antibody test. It appears that thrombocytopenia occurred previously when she had her right knee replacement, and it could she was on heparin at that time, also. If she does have heparin-induced thrombocytopenia, it will be useful information for her to know going forward. Hyponatremia. Resolved on labs 11/11/2017. Glaucoma. Continue latanoprost. Hypothyroidism. Continue levothyroxine. Constipation. Continue current bowel program with polyethylene glycol daily, senna twice a day, bisacodyl suppository and enema available p.r.n. Prophylaxis. Continue warfarin, managed by Pharmacy. There is no indication for GI prophylaxis. DISPOSITION: Lives at home with her . Home is ADA compliant and she can live on 1 level. Tentative discharge date set for 11/19/2017. She will have PT and OT home care. FOLLOW-UP: She will follow up with her primary orthopedist, Dr. Kiet Blanchard, after her discharge. Her primary care provider is Dr. Vidhi Fenton. She is to follow up with orthopedic surgeon, Dr. Morales, in approximately 2 weeks from her surgery, which would be 11/21/2017, for followup and staple removal. 11/13/17 10:34 Subjective: Slept well. No cough. Does not feel dyspneic. Notes swelling in left leg as well as bruising in the thigh. Objective: Vital Signs Temp Pulse Resp BP Pulse Ox 36.7 C 102 H 16 133/84 H 95 11/13/17 06:19 11/13/17 06:19 11/13/17 06:19 11/13/17 06:19 11/13/17 06:19 Laboratory Results 11/11/17 10:15 11/11/17 10:15 11/12/17 11/13/17 11/14/17 05:59 05:59 05:59 Intake Total 540 1450 450 Output Total 200 250 850 Balance 340 1200 -400 PT 31.4 SEC (12.0-15.0) H 11/13/17 06:20 INR 3.05 (0.83-1.16) H 11/13/17 06:20 - Time Spent With Patient Time Spent With Patient: Greater than 35 min floor time today, including coordination of care in discussion with Cardiology and check out for weekend coverage physician, and counseling patient. Physical Exam - Physical Exam General Appearance: WD/WN, alert, no apparent distress Respiratory: normal breath sounds, crackles (Few, left lower lobe), No rhonchi, No wheezing Cardiac/Chest: regular rate, rhythm, edema (2+ bilateral pretibial. Pitting edema in left thigh as well.), tachycardia, irregularly irregular, No diastolic murmur, No systolic murmur Skin: normal color, warm/dry Neuro/Psych: alert, normal mood/affect, oriented x 3 ICD10 Worksheet Patient Problems: Problems Problem Status Onset Bakers cyst Acute Chronic a-fib Acute Intertrochanteric fracture of left femur Acute Osteoarthritis of right knee Acute Vision abnormalities Acute Warfarin-induced coagulopathy Acute
[2017-11-13] MEDS ORDERED: METOPROLOL SUCCINATE XR 25 MG TAB PO ONE (10:33)
[2017-11-13] MEDS: ACYCLOVIR 400 MG TAB PO SCH ×4 (11:48→21:10)
[2017-11-13] MEDS: oxyCODONE IR 5 MG TAB PO PRN ×3 (11:57→22:20)
[2017-11-13] MEDS: LATANOPROST 0.005% 2.5 ML OPHT DROPS EACHEYE SCH (20:34)
[2017-11-13] MEDS: PRAVASTATIN SODIUM 20 MG TAB PO SCH (21:04)
[2017-11-13] MEDS: LOSARTAN POTASSIUM 25 MG TAB PO SCH (21:04)
[2017-11-14] MEDS: METHOCARBAMOL 750 MG TAB PO PRN ×3 (01:02→09:33)
[2017-11-14] MEDS: ACETAMINOPHEN 500 MG TAB PO SCH ×3 (05:34→21:09)
[2017-11-14] MEDS: ACYCLOVIR 400 MG TAB PO SCH ×4 (05:34→17:06)
[2017-11-14] MEDS: LEVOTHYROXINE 112 MCG TAB PO SCH (05:35)
[2017-11-14 07:50] LABS: PLATELET COUNT 225 10^3/uL (150-400)
[2017-11-14 07:53] LABS: INR 2.22 (0.83-1.16); PROTIME(PATIENT) 24.6 SEC (12.0-15.0)
[2017-11-14] MEDS ORDERED: METOPROLOL SUCCINATE XR 50 MG TAB PO SCH (09:00)
[2017-11-14] MEDS: PRESERVISION AREDS2 FORMULA EYE VIT 1 EACH PO SCH ×2 (09:28→20:21)
[2017-11-14] MEDS: FERROUS SULFATE 325 MG TAB PO SCH (09:29)
[2017-11-14] MEDS: CHOLECALCIFEROL VIT D3 1,000 UNITS TAB PO SCH (09:29)
[2017-11-14] MEDS: FUROSEMIDE 40 MG TAB PO SCH (09:30)
[2017-11-14] MEDS: SENNOSIDES/DOCUSATE SODIUM TAB PO SCH ×2 (09:34→20:22)
[2017-11-14] MEDS: oxyCODONE IR 5 MG TAB PO PRN (10:59)
--- NOTE | 2017-11-14 12:40 | HOSPPROG ---
Hospitalist Progress Note Assessment/Plan: Assessment: 82 yo F p/w L femur fracture c/b AFib RVR and chronic systolic CHF Plan: # L. intertrochanteric femur fracture. S/p IM nail 11/07/17 -pain control w/ PRN robaxin, patient tolerating -cont therapies # Constipation. Resolved, cont bowel regimen # AFib w/ RVR. Given pain and exertion w/ therapies, will adjust from succinate 100 HS to tartrate 75 bid (starting tonight) and monitor impact on HR/BP -INR 2.2, cont coumadin -counseled her on dietary intake while on coumadin, encouraging her to eat a healthy diet (with green vegetables, if she desires) that is consistent so that her dosage of coumadin and subsequent INR remain stable -patient reports she was on metop 75 bid at home prior to fxr, unclear if succinate or tartrate # Acute on chronic systolic and valvular CHF. BNP 5300, reduced to 2660 s/p initiating lasix -net positive 1kg LOS -cont strict I/O/weights -will cont lasix at 40mg PO daily today, clear lungs, on RA -K4.4, Cr 0.5, repeat lytes on 11/16 # PE. Identified on CT as small, right sided -cont on coumadin # HTN. Chronic, cont ARB + bblocker # Thrombocytopenia. Resolved # Hyponatremia. Acute, resolved Diet. Regular PPx. On coumadin Code. Full Dispo. Lives at home with her . Home is ADA compliant and she can live on 1 level. Tentative discharge date set for 11/19/2017. She will have PT and OT home care. Subjective: siria reports numerous BMs, wants better lettuce Objective: Vital Signs Temp Pulse Resp BP Pulse Ox 36.3 C 105 H 14 110/73 96 11/14/17 05:46 11/14/17 10:46 11/14/17 10:46 11/14/17 09:37 11/14/17 10:46 Laboratory Results 11/14/17 05:45 11/14/17 05:45 11/13/17 11/14/17 11/15/17 05:59 05:59 05:59 Intake Total 1450 1750 Output Total 250 3250 Balance 1200 -1500 PT 24.6 SEC (12.0-15.0) H 11/14/17 05:45 INR 2.22 (0.83-1.16) H 11/14/17 05:45 - Physical Exam Constitutional: no apparent distress, appears nourished, not in pain, No uncomfortable Cardiovascular: irregularly irregular, tachycardia, No systolic murmur, No JVD, No edema Respiratory: no respiratory distress, no rales or rhonchi, clear to auscultation Gastrointestinal: normoactive bowel sounds, soft, non-tender abdomen, no palpable masses Musculoskeletal: other (soft tissue swelling LLE near hip) Neurologic: AAOx3, sensation intact bilaterally, weakness (LLE 2/2 post- surgical pain/immobility) Psychiatric: interacting appropriately, not anxious, not encephalopathic, thought process linear ICD10 Worksheet Patient Problems: Problems Problem Status Onset Bakers cyst Acute Intertrochanteric fracture of left femur Acute Warfarin-induced coagulopathy Acute Chronic a-fib Acute Osteoarthritis of right knee Acute Vision abnormalities Acute
[2017-11-14] MEDS ORDERED: WARFARIN SODIUM 2 MG TAB PO ONE (16:00)
[2017-11-14] MEDS ORDERED: ACYCLOVIR 400 MG TAB PO PRN (17:56)
[2017-11-14] MEDS: LATANOPROST 0.005% 2.5 ML OPHT DROPS EACHEYE SCH (20:20)
[2017-11-14] MEDS: PRAVASTATIN SODIUM 20 MG TAB PO SCH (20:21)
[2017-11-14] MEDS: LOSARTAN POTASSIUM 25 MG TAB PO SCH (20:21)
[2017-11-15] MEDS: LEVOTHYROXINE 112 MCG TAB PO SCH (05:35)
[2017-11-15] MEDS: ACETAMINOPHEN 500 MG TAB PO SCH ×3 (05:35→21:09)
[2017-11-15 07:59] LABS: INR 2.18 (0.83-1.16); PROTIME(PATIENT) 24.3 SEC (12.0-15.0)
[2017-11-15] MEDS: SENNOSIDES/DOCUSATE SODIUM TAB PO SCH ×2 (08:31→21:10)
[2017-11-15] MEDS: CHOLECALCIFEROL VIT D3 1,000 UNITS TAB PO SCH (08:32)
[2017-11-15] MEDS: PRESERVISION AREDS2 FORMULA EYE VIT 1 EACH PO SCH ×2 (08:32→21:11)
[2017-11-15] MEDS: FERROUS SULFATE 325 MG TAB PO SCH (08:32)
[2017-11-15] MEDS: FUROSEMIDE 40 MG TAB PO SCH ×2 (08:32→14:57)
[2017-11-15] MEDS: METOPROLOL TARTRATE 50 MG TAB PO SCH ×2 (08:32→21:07)
[2017-11-15] MEDS: oxyCODONE IR 5 MG TAB PO PRN ×2 (10:18→14:56)
--- NOTE | 2017-11-15 12:27 | HOSPPROG ---
Hospitalist Progress Note Assessment/Plan: Assessment: 82 yo F p/w L femur fracture c/b AFib RVR and acute on chronic systolic CHF Plan: # L. intertrochanteric femur fracture. S/p IM nail 11/07/17 -pain control w/ PRN robaxin, patient tolerating -cont therapies # Constipation. Resolved, cont bowel regimen # AFib w/ RVR. Adjusted from succinate 100 HS to tartrate 75 bid (starting 11/15 AM) and monitor impact on HR/BP -patient reports she was on metop 75 bid at home prior to fxr, unclear if succinate or tartrate -INR 2.18, cont coumadin -continued to [employer] counselor patient and on dietary intake while on coumadin, encouraging her to eat a healthy diet (with green vegetables, if she desires) that is consistent so that her dosage of coumadin and subsequent INR remain stable, reassuring her that a coumadin dosage can be uptitrated if needed to account for higher dietary intake of vitamin K containing foods to achieve an INR 2-3 # Acute on chronic systolic and valvular CHF. BNP 5300, reduced to 2660 s/p initiating lasix, patient reports she takes 10mg daily at baseline -net positive 3kg LOS -cont strict I/O/weights -will increase lasix at 40mg PO bid today, clear lungs, on RA -K4.4, Cr 0.5, repeat lytes on 11/16 # PE. Identified on CT as small, right sided -cont on coumadin # HTN. Chronic, cont ARB + bblocker, increased lasix # Thrombocytopenia. Resolved # Hyponatremia. Acute, resolved Diet. Regular PPx. On coumadin Code. Full Dispo. Lives at home with her . Home is ADA compliant and she can live on 1 level. Tentative discharge date set for 11/19/2017. She will have PT and OT home care. Subjective: had a BM, no orthopnea, frustrated about not eating green vegetables Objective: Vital Signs Temp Pulse Resp BP Pulse Ox 36.9 C 98 15 121/84 H 93 11/15/17 05:53 11/15/17 08:32 11/15/17 05:53 11/15/17 08:32 11/15/17 05:53 Laboratory Results 11/14/17 05:45 11/14/17 05:45 09/11/15/17 11/16/17 05:59 05:59 05:59 Intake Total 1750 1040 240 Output Total 3250 Balance -1500 1040 240 PT 24.3 SEC (12.0-15.0) H 11/15/17 05:50 INR 2.18 (0.83-1.16) H 11/15/17 05:50 - Physical Exam Constitutional: no apparent distress, appears nourished, not in pain, No uncomfortable Cardiovascular: irregularly irregular, edema (1+ LLE), No systolic murmur, No JVD, No tachycardia Respiratory: inspiratory crackles, No reduced air movement, No expiratory wheeze , No bronchial breath sounds, No respiratory distress Gastrointestinal: normoactive bowel sounds, soft, non-tender abdomen, no palpable masses Musculoskeletal: other (ROM limited in LLE 2/2 pain/swelling, soft tissue edema non-tender) Neurologic: AAOx3, sensation intact bilaterally, No facial droop Psychiatric: interacting appropriately, not anxious, not encephalopathic, thought process linear ICD10 Worksheet Patient Problems: Problems Problem Status Onset Bakers cyst Acute Chronic a-fib Acute Intertrochanteric fracture of left femur Acute Osteoarthritis of right knee Acute Vision abnormalities Acute Warfarin-induced coagulopathy Acute
[2017-11-15] MEDS ORDERED: WARFARIN SODIUM 1 MG TAB PO ONE (16:00)
[2017-11-15] MEDS: LATANOPROST 0.005% 2.5 ML OPHT DROPS EACHEYE SCH (20:21)
[2017-11-15] MEDS: LOSARTAN POTASSIUM 25 MG TAB PO SCH (21:10)
[2017-11-15] MEDS: PRAVASTATIN SODIUM 20 MG TAB PO SCH (21:11)
[2017-11-16] MEDS: ACETAMINOPHEN 500 MG TAB PO SCH ×3 (06:27→21:28)
[2017-11-16] MEDS: LEVOTHYROXINE 112 MCG TAB PO SCH (06:27)
[2017-11-16] MEDS: SENNOSIDES/DOCUSATE SODIUM TAB PO SCH ×2 (08:24→21:30)
[2017-11-16] MEDS: PRESERVISION AREDS2 FORMULA EYE VIT 1 EACH PO SCH ×2 (08:25→21:29)
[2017-11-16] MEDS: FERROUS SULFATE 325 MG TAB PO SCH (08:25)
[2017-11-16] MEDS: METOPROLOL TARTRATE 50 MG TAB PO SCH ×2 (08:26→21:29)
[2017-11-16] MEDS: CHOLECALCIFEROL VIT D3 1,000 UNITS TAB PO SCH (08:26)
[2017-11-16] MEDS: FUROSEMIDE 40 MG TAB PO SCH ×2 (08:26→15:34)
[2017-11-16 09:21] LABS: INR 1.82 (0.83-1.16); PROTIME(PATIENT) 21.2 SEC (12.0-15.0)
[2017-11-16] MEDS: METHOCARBAMOL 750 MG TAB PO PRN (10:59)
--- NOTE | 2017-11-16 11:15 | SOAPPROG ---
SOAP Progress Note Assessment/Plan: Assessment: Left intertrochanteric femur fracture, status post intramedullary nailing on . * Initial functional independence measure is 75 on 11/12/2017. She needs moderate to maximal assistance for bed mobility. Walked 110 ft with minimal assist using a front wheeled walker. She can self propel a wheelchair 60 ft. Upper body dressing requires setup to standby assist. Lower body dressing requires moderate assistance. Shower was done with close standby assist and she needed minimal assist to dry her feet. Transfers for shower and toilet required minimal assist. * Continue PT and OT to optimize mobility and functional status to the modified independent level. Pain management. Inadequate control on hydrocodone/acetaminophen combination q.4 hours p.r.n.. * Discontinue hydrocodone/acetaminophen, 11/11/2017. * Schedule acetaminophen 1000 mg q.8 hours p.r.n. * Initiate oxycodone 2.5-10 mg q.3 hours p.r.n.; has not been using. Congestive heart failure and hypoxia, also with history of pulmonary emboli and a history of secondhand smoke exposure. Continue oxygen as needed. She will have incentive spirometry. Continue medications for heart failure with losartan , metoprolol, and furosemide. * BNP a markedly elevated at 5310 on 11/11/2017. Continue to monitor clinically. Improved to 2660 as of 11/14/2017.. * Tachycardia and increased hypoxemia down to 84% on room air on 11/12/2017. Right long subsegmental pulmonary emboli on chest CT 11/12/2017. * Discussed with Merrill Lynn, cardiology PA, [phone] to, 11/13/2017. C hanged furosemide from 20 mg and 40 mg on alternate days to 40 mg q.day. Increased metoprolol succinate from 75 mg q.day to 100 mg q.day, with an extra 25 mg dose on 11/13/2017. Furosemide changed to 40 mg twice daily and metoprolol to tartrate preparation 75 mg twice daily on 11/15/2017. * She is diuresing, with weight change from 58.9 kg on 11/13/2017 to 54.9 kg on Pulmonary emboli, right lung, subsegmental lower middle and upper lobes, on chest CT 11/12/2017. * Likely happened when INR was allowed to drift down so that she could have surgery for her hip fracture. * Continue warfarin. Initiate compression stockings. Wound care discussed with Dr. Morales, 11/11/2017. Dressing removed 11/16/2017; healing well. [place] are to be removed 2 weeks post surgery which would be . Fluid collection over left hip, question of bursitis. Does not appear to be infected. Hypertension. Continue losartan and metoprolol. Continue her antihypertensives , monitor her blood pressures, and adjust medications as needed. History of pulmonary embolus and atrial fibrillation. Continue warfarin, with dosing to be managed by Pharmacy. Anemia, postoperative. * Appropriate reticulocytosis. * Iron deficient; iron supplement begun 11/12/2017. Should continue for approximately a month, to 12/11/2017. Thrombocytopenia. Resolved on CBC 11/11/2017. Await result of heparin-induced antibody test. It appears that thrombocytopenia occurred previously when she had her right knee replacement, and it could she was on heparin at that time, also. If she does have heparin-induced thrombocytopenia, it will be useful information for her to know going forward. Hyponatremia. Resolved on labs 11/11/2017. Glaucoma. Continue latanoprost. Hypothyroidism. Continue levothyroxine. Constipation. Continue current bowel program with polyethylene glycol daily, senna twice a day, bisacodyl suppository and enema available p.r.n. Prophylaxis. Continue warfarin, managed by Pharmacy. There is no indication for GI prophylaxis. DISPOSITION: Lives at home with her . Home is ADA compliant and she can live on 1 level. Tentative discharge date set for 11/19/2017. She will have PT and OT home care. FOLLOW-UP: She will follow up with her primary orthopedist, Dr. Kiet Blanchard, after her discharge. Her primary care provider is Dr. Vidhi Fenton. She is to follow up with orthopedic surgeon, Dr. Morales, in approximately 2 weeks from her surgery, which would be 11/21/2017, for followup and staple removal. 11/16/17 12:33 Subjective: Left buttock and thigh feels sore including soreness into her inguinal area. Hurts to sit up if she is in bed, otherwise comfortable when she is not moving. Pain with ambulation. No cough or dyspnea, no fevers or chills. Objective: Vital Signs Temp Pulse Resp BP Pulse Ox 36.7 C 96 16 128/81 H 93 11/16/17 06:10 11/16/17 06:10 11/16/17 06:10 11/16/17 06:10 11/16/17 06:10 Laboratory Results 11/14/17 05:45 11/16/17 06:25 11/15/17 11/16/17 11/17/17 05:59 05:59 05:59 Intake Total 1040 740 Output Total 500 300 Balance 1040 240 -300 PT 21.2 SEC (12.0-15.0) H 11/16/17 06:25 INR 1.82 (0.83-1.16) H 11/16/17 06:25 Physical Exam - Physical Exam General Appearance: WD/WN, alert, no apparent distress Respiratory: No respiratory distress, No accessory muscle use Cardiac/Chest: edema (1+ left pretibial, no edema right pretibial.) Skin: normal color, warm/dry, other (Bandage is removed from incisions, left hip and thigh. Extensive bruising over left gluteus and down lateral left thigh. Proximal incision with very slight open area and minimal drainage distal , otherwise clean dry and intact with adina present. Distal incision clean dry and intact with adina present.) Extremities: other (Golf ball size fluctuant swelling over and superior to proximal aspect of upper incision) Neuro/Psych: alert, normal mood/affect, oriented x 3, abnormal gait (With front wheeled walker accompanied by Physical therapy, short steps, narrow base, appears antalgic regarding left hip.) ICD10 Worksheet Patient Problems: Problems Problem Status Onset Bakers cyst Acute Chronic a-fib Acute Intertrochanteric fracture of left femur Acute Osteoarthritis of right knee Acute Vision abnormalities Acute Warfarin-induced coagulopathy Acute
[2017-11-16] MEDS: POLYETHYLENE GLYCOL 3350 17 GM PKT PO PRN (13:40)
[2017-11-16] MEDS ORDERED: WARFARIN SODIUM 2 MG TAB PO ONE (16:00)
[2017-11-16] MEDS: PRAVASTATIN SODIUM 20 MG TAB PO SCH (21:29)
[2017-11-16] MEDS: LOSARTAN POTASSIUM 25 MG TAB PO SCH (21:30)
[2017-11-16] MEDS: LATANOPROST 0.005% 2.5 ML OPHT DROPS EACHEYE SCH (21:30)
[2017-11-16] MEDS: oxyCODONE IR 5 MG TAB PO PRN (23:53)
[2017-11-17] MEDS: ACETAMINOPHEN 500 MG TAB PO SCH ×3 (05:58→20:36)
[2017-11-17] MEDS: LEVOTHYROXINE 112 MCG TAB PO SCH (05:58)
[2017-11-17] MEDS: oxyCODONE IR 5 MG TAB PO PRN (06:45)
[2017-11-17] MEDS: METHOCARBAMOL 750 MG TAB PO PRN (06:45)
[2017-11-17] MEDS: SENNOSIDES/DOCUSATE SODIUM TAB PO SCH ×2 (08:42→20:38)
[2017-11-17] MEDS: PRESERVISION AREDS2 FORMULA EYE VIT 1 EACH PO SCH ×2 (08:43→20:37)
[2017-11-17] MEDS: CHOLECALCIFEROL VIT D3 1,000 UNITS TAB PO SCH (08:43)
[2017-11-17] MEDS: FERROUS SULFATE 325 MG TAB PO SCH (08:43)
[2017-11-17] MEDS: FUROSEMIDE 40 MG TAB PO SCH (08:45)
[2017-11-17] MEDS: METOPROLOL TARTRATE 50 MG TAB PO SCH ×2 (08:45→20:34)
[2017-11-17 09:17] LABS: INR 2.2 (0.83-1.16); PROTIME(PATIENT) 24.5 SEC (12.0-15.0)
--- NOTE | 2017-11-17 14:42 | SOAPPROG ---
SOAP Progress Note Assessment/Plan: Assessment: Left intertrochanteric femur fracture, status post intramedullary nailing on . * Initial functional independence measure is 75 on 11/12/2017. She needs moderate to maximal assistance for bed mobility. Walked 110 ft with minimal assist using a front wheeled walker. She can self propel a wheelchair 60 ft. Upper body dressing requires setup to standby assist. Lower body dressing requires moderate assistance. Shower was done with close standby assist and she needed minimal assist to dry her feet. Transfers for shower and toilet required minimal assist. * Advanced to independent in room at wheelchair level today, 11/17/2017. * Continue PT and OT to optimize mobility and functional status to the modified independent level. Pain management. Inadequate control on hydrocodone/acetaminophen combination q.4 hours p.r.n.. * Discontinue hydrocodone/acetaminophen, 11/11/2017. * Schedule acetaminophen 1000 mg q.8 hours p.r.n. * Initiate oxycodone 2.5-10 mg q.3 hours p.r.n.; has been using 5-15 mg in 1-3 doses per day. Congestive heart failure and hypoxia, also with history of pulmonary emboli and a history of secondhand smoke exposure. Continue oxygen as needed. She will have incentive spirometry. Continue medications for heart failure with losartan , metoprolol, and furosemide. * BNP a markedly elevated at 5310 on 11/11/2017. Continue to monitor clinically. Improved to 2660 as of 11/14/2017.. * Tachycardia and increased hypoxemia down to 84% on room air on 11/12/2017. Right long subsegmental pulmonary emboli on chest CT 11/12/2017. * Discussed with Merrill Lynn, cardiology PA, [phone] to, 11/13/2017. C hanged furosemide from 20 mg and 40 mg on alternate days to 40 mg q.day. Increased metoprolol succinate from 75 mg q.day to 100 mg q.day, with an extra 25 mg dose on 11/13/2017. Furosemide changed to 40 mg twice daily and metoprolol to tartrate preparation 75 mg twice daily on 11/15/2017. * She is diuresing, with weight change from 58.9 kg on 11/13/2017 to 54. kg on * Resume furosemide 40 mg alternating with 20 mg on alternating days though will get 40 mg on 11/17 and 11/18/2017. Pulmonary emboli, right lung, subsegmental lower middle and upper lobes, on chest CT 11/12/2017. * Likely happened when INR was allowed to drift down so that she could have surgery for her hip fracture. * Continue warfarin. Initiate compression stockings. Wound care discussed with Dr. Morales, 11/11/2017. Dressing removed 11/16/2017; healing well. [place] are to be removed 2 weeks post surgery which would be . Fluid collection over left hip, question of bursitis. Does not appear to be infected. Insomnia. Trial of trazodone 25 mg at HS beginning 11/17/2017. Hypertension. Continue losartan and metoprolol. Monitor her blood pressures, and adjust medications as needed. History of pulmonary embolus and atrial fibrillation. Continue warfarin, with dosing to be managed by Pharmacy. Anemia, postoperative. * Appropriate reticulocytosis. * Iron deficient; iron supplement begun 11/12/2017. Should continue for approximately a month, to 12/11/2017. Thrombocytopenia. Resolved on CBC 11/11/2017. Await result of heparin-induced antibody test. It appears that thrombocytopenia occurred previously when she had her right knee replacement, and it could she was on heparin at that time, also. If she does have heparin-induced thrombocytopenia, it will be useful information for her to know going forward. Hyponatremia. Resolved on labs 11/11/2017. Glaucoma. Continue latanoprost. Hypothyroidism. Continue levothyroxine. Constipation. Continue current bowel program with polyethylene glycol daily, senna twice a day, bisacodyl suppository and enema available p.r.n. Prophylaxis. Continue warfarin, managed by Pharmacy. There is no indication for GI prophylaxis. DISPOSITION: Lives at home with her . Home is ADA compliant and she can live on 1 level. Tentative discharge date set for 11/19/2017. She will have PT and OT home care. FOLLOW-UP: She will follow up with her primary orthopedist, Dr. Kiet Blanchard, after her discharge. Her primary care provider is Dr. Vidhi Fenton. She is to follow up with orthopedic surgeon, Dr. Morales, in approximately 2 weeks from her surgery, which would be 11/21/2017, for followup and staple removal. 11/17/17 14:38 Subjective: Complains of poor sleep. Says she slept about 3 hr last night. She slept well the night before. She does not have nocturnal dyspnea or cough. Pain does not interfere though she has some pain overnight. Reports new pain in her posterior thigh on the left. At the wheelchair she has been using is no longer comfortable. Otherwise without complaint. Objective: Vital Signs Temp Pulse Resp BP Pulse Ox 36.3 C 89 15 103/59 L 95 11/17/17 06:03 11/17/17 08:45 11/17/17 06:03 11/17/17 08:45 11/17/17 06:03 Laboratory Results 11/14/17 05:45 11/16/17 06:25 11/16/17 11/17/17 11/18/17 05:59 05:59 05:59 Intake Total 740 950 350 Output Total 500 1075 Balance 240 -125 350 PT 24.5 SEC (12.0-15.0) H 11/17/17 06:10 INR 2.20 (0.83-1.16) H 11/17/17 06:10 Physical Exam - Physical Exam General Appearance: WD/WN, alert, no apparent distress Respiratory: normal breath sounds, No crackles, No rhonchi, No wheezing Cardiac/Chest: edema (Plus left pretibial. No edema on the right.), irregularly irregular, No JVD, No diastolic murmur, No systolic murmur Skin: normal color, warm/dry Neuro/Psych: no motor/sensory deficits, alert, normal mood/affect, oriented x 3 ICD10 Worksheet Patient Problems: Problems Problem Status Onset Bakers cyst Acute Chronic a-fib Acute Intertrochanteric fracture of left femur Acute Osteoarthritis of right knee Acute Vision abnormalities Acute Warfarin-induced coagulopathy Acute
[2017-11-17] MEDS ORDERED: WARFARIN SODIUM 1 MG TAB PO ONE (16:00)
[2017-11-17] MEDS: PRAVASTATIN SODIUM 20 MG TAB PO SCH (20:35)
[2017-11-17] MEDS: LOSARTAN POTASSIUM 25 MG TAB PO SCH (20:36)
[2017-11-17] MEDS: traZODone 50 MG TAB PO SCH (20:37)
[2017-11-17] MEDS: LATANOPROST 0.005% 2.5 ML OPHT DROPS EACHEYE SCH (20:38)
[2017-11-18] MEDS: LEVOTHYROXINE 112 MCG TAB PO SCH (05:14)
[2017-11-18] MEDS: ACETAMINOPHEN 500 MG TAB PO SCH ×3 (05:15→21:48)
[2017-11-18 08:14] LABS: INR 2.09 (0.83-1.16); PROTIME(PATIENT) 23.5 SEC (12.0-15.0)
[2017-11-18] MEDS: METOPROLOL TARTRATE 50 MG TAB PO SCH ×2 (09:04→20:22)
[2017-11-18] MEDS: PRESERVISION AREDS2 FORMULA EYE VIT 1 EACH PO SCH ×2 (09:04→20:21)
[2017-11-18] MEDS: CHOLECALCIFEROL VIT D3 1,000 UNITS TAB PO SCH (09:05)
[2017-11-18] MEDS: FUROSEMIDE 40 MG TAB PO SCH (09:05)
[2017-11-18] MEDS: FERROUS SULFATE 325 MG TAB PO SCH (09:05)
[2017-11-18] MEDS: SENNOSIDES/DOCUSATE SODIUM TAB PO SCH ×2 (09:20→21:56)
[2017-11-18] MEDS: METHOCARBAMOL 750 MG TAB PO PRN ×2 (11:44→20:31)
--- NOTE | 2017-11-18 13:35 | SOAPPROG ---
SOAP Progress Note Assessment/Plan: Assessment: Left intertrochanteric femur fracture, status post intramedullary nailing on . * Initial functional independence measure is 75 on 11/12/2017; improved to 97 as of 11/18/2017. Independent with bed mobility ambulation and transfers. Has ambulated 150 ft with front wheeled walker. Generally independent with activities of daily living. Needed help to dry her feet after bathing. Needs some help to get her left foot into her pants. * Independent in her room. * Continue PT and OT to optimize mobility and functional status to the modified independent level. Pain management. Inadequate control on hydrocodone/acetaminophen combination q.4 hours p.r.n.. * Discontinue hydrocodone/acetaminophen, 11/11/2017. * Schedule acetaminophen 1000 mg q.8 hours p.r.n. * Initiate oxycodone 2.5-10 mg q.3 hours p.r.n.; not used since a morning dose on 11/17/2017. Congestive heart failure and hypoxia, also with history of pulmonary emboli and a history of secondhand smoke exposure. Continue oxygen as needed. She will have incentive spirometry. Continue medications for heart failure with losartan , metoprolol, and furosemide. * BNP a markedly elevated at 5310 on 11/11/2017. Continue to monitor clinically. Improved to 2660 as of 11/14/2017.. * Tachycardia and increased hypoxemia down to 84% on room air on 11/12/2017. Right long subsegmental pulmonary emboli on chest CT 11/12/2017. * Discussed with Merrill Lynn, cardiology PA, [phone] to, 11/13/2017. C hanged furosemide from 20 mg and 40 mg on alternate days to 40 mg q.day. Increased metoprolol succinate from 75 mg q.day to 100 mg q.day, with an extra 25 mg dose on 11/13/2017. Furosemide changed to 40 mg twice daily and metoprolol to tartrate preparation 75 mg twice daily on 11/15/2017. * She is diuresing, with weight change from 58.9 kg on 11/13/2017 to 54. kg on * Resume furosemide 40 mg alternating with 20 mg on alternating days though will get 40 mg on 11/17 and 11/18/2017. Pulmonary emboli, right lung, subsegmental lower middle and upper lobes, on chest CT 11/12/2017. * Likely happened when INR was allowed to drift down so that she could have surgery for her hip fracture. * Continue warfarin. Initiate compression stockings. Wound care discussed with Dr. Morales, 11/11/2017. Dressing removed 11/16/2017; healing well. [place] are to be removed 2 weeks post surgery which would be . Fluid collection over left hip, question of bursitis. Does not appear to be infected. Insomnia. Trial of trazodone 25 mg at HS beginning 11/17/2017. Hypertension. Continue losartan and metoprolol. Monitor her blood pressures, and adjust medications as needed. History of pulmonary embolus and atrial fibrillation. Continue warfarin, with dosing to be managed by Pharmacy. Anemia, postoperative. * Appropriate reticulocytosis. * Iron deficient; iron supplement begun 11/12/2017. Should continue for approximately a month, to 12/11/2017. Thrombocytopenia. Resolved on CBC 11/11/2017. Await result of heparin-induced antibody test. It appears that thrombocytopenia occurred previously when she had her right knee replacement, and it could she was on heparin at that time, also. If she does have heparin-induced thrombocytopenia, it will be useful information for her to know going forward. Hyponatremia. Resolved on labs 11/11/2017. Glaucoma. Continue latanoprost. Hypothyroidism. Continue levothyroxine. Constipation. Continue current bowel program with polyethylene glycol daily, senna twice a day, bisacodyl suppository and enema available p.r.n. Prophylaxis. Continue warfarin, managed by Pharmacy. There is no indication for GI prophylaxis. DISPOSITION: Attended staffing, 15 min. Discussed with cyanide case hardener, nursing, dietitian, PT, O T. 2 steps to enter the house. Working on stairs today, 2017. Lives at home with her . Home is ADA compliant and she can live on 1 level. Plan for discharge 11/20/2017.. She will have PT and OT home care. FOLLOW-UP: She will follow up with her primary orthopedist, Dr. Kiet Blanchard, after her discharge. Her primary care provider is Dr. Vidhi Fenton. She is to follow up with orthopedic surgeon, Dr. Morales, in approximately 2 weeks from her surgery, which would be 11/21/2017, for followup and staple removal. 11/18/17 13:32 Subjective: No complaints. Sleeping well. Pain adequately controlled. No cough or dyspnea. Had an outing today to go to a birthday green party but there are steps to enter, so she did not enter; however she accomplished a car transfer for with her . Objective: Vital Signs Temp Pulse Resp BP Pulse Ox 36.6 C 93 15 132/92 H 95 11/18/17 05:43 11/18/17 05:43 11/18/17 05:43 11/18/17 09:04 11/18/17 05:43 Laboratory Results 11/14/17 05:45 11/16/17 06:25 11/17/17 11/18/17 11/19/17 05:59 05:59 05:59 Intake Total 950 768 Output Total 1075 Balance -125 768 PT 23.5 SEC (12.0-15.0) H 11/18/17 06:00 INR 2.09 (0.83-1.16) H 11/18/17 06:00 Physical Exam - Physical Exam General Appearance: WD/WN, alert, no apparent distress Respiratory: No respiratory distress, No accessory muscle use Skin: normal color, warm/dry Neuro/Psych: alert, normal mood/affect, oriented x 3, abnormal gait (Observed climbing and descending steps with 1 rail and 1 4 point cane, slowly and step to step pattern.) ICD10 Worksheet Patient Problems: Problems Problem Status Onset Bakers cyst Acute Chronic a-fib Acute Intertrochanteric fracture of left femur Acute Osteoarthritis of right knee Acute Vision abnormalities Acute Warfarin-induced coagulopathy Acute
[2017-11-18] MEDS ORDERED: WARFARIN SODIUM 2 MG TAB PO ONE (16:00)
[2017-11-18] MEDS: PRAVASTATIN SODIUM 20 MG TAB PO SCH (20:21)
[2017-11-18] MEDS: LOSARTAN POTASSIUM 25 MG TAB PO SCH (20:21)
[2017-11-18] MEDS: LATANOPROST 0.005% 2.5 ML OPHT DROPS EACHEYE SCH (20:24)
[2017-11-18] MEDS: traZODone 50 MG TAB PO SCH (20:31)
[2017-11-19] MEDS: LEVOTHYROXINE 112 MCG TAB PO SCH (05:53)
[2017-11-19] MEDS: ACETAMINOPHEN 500 MG TAB PO SCH ×3 (05:54→21:17)
[2017-11-19 08:31] LABS: INR 2.13 (0.83-1.16); PROTIME(PATIENT) 23.9 SEC (12.0-15.0)
[2017-11-19] MEDS ORDERED: FUROSEMIDE 20 MG TAB PO SCH (09:00)
[2017-11-19] MEDS: FERROUS SULFATE 325 MG TAB PO SCH (09:14)
[2017-11-19] MEDS: CHOLECALCIFEROL VIT D3 1,000 UNITS TAB PO SCH (09:14)
[2017-11-19] MEDS: PRESERVISION AREDS2 FORMULA EYE VIT 1 EACH PO SCH ×2 (09:14→20:39)
[2017-11-19] MEDS: SENNOSIDES/DOCUSATE SODIUM TAB PO SCH ×2 (09:15→22:13)
[2017-11-19] MEDS: METOPROLOL TARTRATE 50 MG TAB PO SCH ×2 (09:15→20:37)
--- NOTE | 2017-11-19 11:39 | SOAPPROG ---
SOAP Progress Note Assessment/Plan: Assessment: Left intertrochanteric femur fracture, status post intramedullary nailing on . * Initial functional independence measure is 75 on 11/12/2017; improved to 97 as of 11/18/2017. Independent with bed mobility ambulation and transfers. Has ambulated 150 ft with front wheeled walker. Generally independent with activities of daily living. Needed help to dry her feet after bathing. Needs some help to get her left foot into her pants. * Independent in her room. * Continue PT and OT to optimize mobility and functional status to the modified independent level. Pain management. * On schedule acetaminophen 1000 mg q.8 hours p.r.n. * Oxycodone 2.5-10 mg q.3 hours p.r.n. not used since a morning dose on 2017. Congestive heart failure and hypoxia, also with history of pulmonary emboli and a history of secondhand smoke exposure. Continue oxygen as needed. She will have incentive spirometry. Continue medications for heart failure with losartan , metoprolol, and furosemide. * BNP a markedly elevated at 5310 on 11/11/2017. Continue to monitor clinically. Improved to 2660 as of 11/14/2017.. * Tachycardia and increased hypoxemia down to 84% on room air on 11/12/2017. Right long subsegmental pulmonary emboli on chest CT 11/12/2017. * Discussed with Merrill Lynn, cardiology PA, [phone] to, 11/13/2017. C hanged furosemide from 20 mg and 40 mg on alternate days to 40 mg q.day. Increased metoprolol succinate from 75 mg q.day to 100 mg q.day, with an extra 25 mg dose on 11/13/2017. Furosemide changed to 40 mg twice daily and metoprolol to tartrate preparation 75 mg twice daily on 11/15/2017. * She is diuresing, with weight change from 58.9 kg on 11/13/2017 to 54. kg on * Resume furosemide 40 mg alternating with 20 mg on alternating days though will get 40 mg on 11/17 and 11/18/2017. Pulmonary emboli, right lung, subsegmental lower middle and upper lobes, on chest CT 11/12/2017. * Likely happened when INR was allowed to drift down so that she could have surgery for her hip fracture. * Continue warfarin. Initiate compression stockings. Wound care discussed with Dr. Morales, 11/11/2017. Dressing removed 11/16/2017; healing well. [place] are to be removed 2 weeks post surgery which would be . Fluid collection over left hip, question of bursitis. Does not appear to be infected. Insomnia. Trial of trazodone 25 mg at HS beginning 11/17/2017. Hypertension. Continue losartan and metoprolol. Monitor her blood pressures, and adjust medications as needed. History of pulmonary embolus and atrial fibrillation. Continue warfarin, with dosing to be managed by Pharmacy. Anemia, postoperative. * Appropriate reticulocytosis. * Iron deficient; iron supplement begun 11/12/2017. Should continue for approximately a month, to 12/11/2017. Thrombocytopenia. Resolved on CBC 11/11/2017. Await result of heparin-induced antibody test. It appears that thrombocytopenia occurred previously when she had her right knee replacement, and it could she was on heparin at that time, also. If she does have heparin-induced thrombocytopenia, it will be useful information for her to know going forward. Hyponatremia. Resolved on labs 11/11/2017. Glaucoma. Continue latanoprost. Hypothyroidism. Continue levothyroxine. Constipation. Continue current bowel program with polyethylene glycol daily, senna twice a day, bisacodyl suppository and enema available p.r.n. Prophylaxis. Continue warfarin, managed by Pharmacy. There is no indication for GI prophylaxis. DISPOSITION: 2 steps to enter the house. Working on stairs today, 11/18/2017. Lives at home with her . Home is ADA compliant and she can live on 1 level. Plan for discharge 11/20/2017.. She will have PT and OT home care. FOLLOW-UP: She will follow up with her primary orthopedist, Dr. Kiet Blanchard, after her discharge. Her primary care provider is Dr. Vidhi Fenton. She is to follow up with orthopedic surgeon, Dr. Morales, in approximately 2 weeks from her surgery, which would be 11/21/2017, for followup and staple removal. 11/18/17 13:32 11/19/17 11:19 Subjective: No complaints. Ready to go home tomorrow. Slept well last night. Adequate pain control without opiates. Objective: Vital Signs Temp Pulse Resp BP Pulse Ox 36.6 C 97 17 108/77 96 11/18/17 19:47 11/19/17 09:15 11/18/17 19:47 11/19/17 09:15 11/18/17 19:47 Laboratory Results 11/14/17 05:45 11/16/17 06:25 11/18/17 11/19/17 11/20/17 05:59 05:59 05:59 Intake Total 768 1075 Balance 768 1075 PT 23.9 SEC (12.0-15.0) H 11/19/17 05:50 INR 2.13 (0.83-1.16) H 11/19/17 05:50 Physical Exam - Physical Exam General Appearance: WD/WN, alert, no apparent distress Respiratory: normal breath sounds, No crackles, No rhonchi, No wheezing Cardiac/Chest: edema (trace bilateral pretibial), irregularly irregular, No JVD , No diastolic murmur, No systolic murmur Skin: normal color, warm/dry Neuro/Psych: no motor/sensory deficits, alert, normal mood/affect, oriented x 3 ICD10 Worksheet Patient Problems: Problems Problem Status Onset Bakers cyst Acute Chronic a-fib Acute Intertrochanteric fracture of left femur Acute Osteoarthritis of right knee Acute Vision abnormalities Acute Warfarin-induced coagulopathy Acute
--- NOTE | 2017-11-19 12:15 | PDOREHIP ---
Admission [facility] - Admission - 3 Day Assessment Period Admission Date/Day 1: 11/10/17 Day 2: 11/11/17 Day 3: 11/12/17 Discharge [facility] - Discharge - 3 Day Assessment Period 2 Days Prior to Anticipated Discharge Date: 11/18/17 1 Day Prior to Anticipated Discharge Date: 11/19/17 Anticipated Discharge Date: 11/20/17 - Discharge Skin Conditions Unhealed Pressure Ulcer (1 or more/Stage 1 or >)-Discharge: 0. No
[2017-11-19] MEDS ORDERED: WARFARIN SODIUM 2 MG TAB PO ONE (16:00)
[2017-11-19] MEDS: traZODone 50 MG TAB PO SCH (20:38)
[2017-11-19] MEDS: PRAVASTATIN SODIUM 20 MG TAB PO SCH (20:39)
[2017-11-19] MEDS: LOSARTAN POTASSIUM 25 MG TAB PO SCH (20:39)
[2017-11-19] MEDS: LATANOPROST 0.005% 2.5 ML OPHT DROPS EACHEYE SCH (20:43)
[2017-11-20] MEDS: ACETAMINOPHEN 500 MG TAB PO SCH (05:52)
[2017-11-20] MEDS: LEVOTHYROXINE 112 MCG TAB PO SCH (05:52)
[2017-11-20 08:25] LABS: INR 2.08 (0.83-1.16); PROTIME(PATIENT) 23.4 SEC (12.0-15.0)
[2017-11-20] MEDS: FUROSEMIDE 40 MG TAB PO SCH (08:47)
[2017-11-20] MEDS: PRESERVISION AREDS2 FORMULA EYE VIT 1 EACH PO SCH (08:47)
[2017-11-20] MEDS: CHOLECALCIFEROL VIT D3 1,000 UNITS TAB PO SCH (08:47)
[2017-11-20] MEDS: METOPROLOL TARTRATE 50 MG TAB PO SCH (08:47)
[2017-11-20] MEDS: SENNOSIDES/DOCUSATE SODIUM TAB PO SCH (08:48)
[2017-11-20] MEDS: FERROUS SULFATE 325 MG TAB PO SCH (08:48)
[2017-11-20 09:01] VITALS: BP 123/81
--- NOTE | 2017-11-20 15:04 | GDS ---
ADMITTING DIAGNOSIS: Debility due to left hip fracture, status post open reduction and internal fixa tion. DISCHARGE DIAGNOSIS: Debility due to left hip fracture, status post open reduction and internal fixa tion. OTHER DISCHARGE DIAGNOSES: 1. Congestive heart failure. 2. Pulmonary emboli. 3. Insomnia. COMPLICATIONS: There were none. CONSULTATIONS: There were none. PROCEDURES: There were none. HISTORY AND HOSPITAL COURSE: This patient was admitted from [facility]. She had presented there on 11/06/2017 after a mechanical fall with a left hip fracture. She chavarria d ORIF per Dr. Morales and was medically stabilized and came to inpatient rehabilitation to recover he r mobility and activities of daily living. She did well during her rehabilitation stay. Her functional independence measure was initially 75 on 11/12/2017, which is consistent with detention level of care. It improved to 97 as of 11/18/2017 , which is consistent with a high level of assisted living function close to independence. She was i ndependent with bed mobility, ambulation and transfers. She had ambulated 150 feet with a front-whee led walker. She was generally independent with her activities of daily living, though she was needin g some help with bathing and to get her left foot into her pants. She was made independent in her ro om. Regarding congestive heart failure, she was needing supplemental oxygen when she first came. She had a markedly elevated BNP at 5310 on 11/11/2017. She had an episode of tachycardia and increased hypo xemia with oxygenation down to 84% on room air on 11/12/2017. She was sent for a chest CT, which fou nd right lung subsegmental pulmonary emboli. These had likely happened while she was subtherapeutic on warfarin, with her INR being allowed to drift down for the purpose of surgery. She was maintained at a therapeutic INR during her stay. She also had accumulated fluid with a nearly 5 kg weight gain . After discussion with the cardiology service physician logging assistant, Merrill Lynn, furosemide, wh ich had been on 20 mg and 40 mg on alternate days, was increased to 40 mg per day and then to 40 mg b .i.d. She had been on metoprolol succinate 75 mg daily. This was initially increased to 100 mg tashia y, and then she was changed to metoprolol tartrate 75 mg b.i.d., which she reported was her home dose . She diuresed considerably, and on the day of discharge, weighed 54.1 kg, which is 4.8 kg down from her peak. She was no longer requiring oxygen. Her edema was gone in the right leg and trace in the left leg, and she was resumed on her home dose of furosemide at 40 mg and 20 mg on alternating days. She had insomnia, which responded to 25 mg of trazodone at h.s. She was noted to have thrombocytopenia. She had also had thrombocytopenia in the past when she had a knee replacement. She had heparin or heparin products on both those occasions. Labs were sent for heparin-induced thrombocytopenia, and these labs were negative, so there is no contraindication to he r receiving heparin in the future should she need it. DISCHARGE PLAN: Discharge condition is good. Activity is ad casie, but she is not to be driving. t is regular. DISCHARGE MEDICATIONS: 1. Acetaminophen 650 mg p.o. q.4 hours p.r.n. 2. PreserVision multivitamin 1 cap b.i.d. 3. Cholecalciferol 1000 units p.o. daily. 4. Ferrous sulfate 325 mg p.o. daily for 21 more days. 5. Furosemide 20 mg and 40 mg p.o. daily on alternating days. 6. Latanoprost 0.005%, 1 drop each eye at h.s. 7. Levothyroxine 112 mcg p.o. daily. 8. Losartan 25 mg p.o. q.h.s. 9. Lovastatin 20 mg p.o. q.h.s. 10. Methocarbamol 750 mg p.o. t.i.d. p.r.n. 11. Metoprolol 75 mg p.o. b.i.d. 12. Polyethylene glycol 17 g p.o. daily p.r.n. 13. Senna 1-2 tabs p.o. b.i.d. p.r.n. 14. Trazodone 25 mg p.o. q.h.s. 15. Warfarin 2 mg on Thursday, Thursday, Thursday, Thursday and Thursday and 1 mg on Thursday and . ISSUES TO BE ADDRESSED AT FOLLOWUP: 1. Wound healing and stability of ORIF. She will see orthopedic surgeon, Dr. Morales, on November 23, 2017 at 11:30 a.m. She will continue home PT and OT. 2. Congestive heart failure. She has resumed her home medications, and she is not currently symptom atic. She can follow up with her primary care or with Cardiology as needed. 3. Pulmonary emboli. She should continue her warfarin, which also is treatment for atrial fibrillat ion. She should have a repeat INR drawn on 11/23/2017. Her INR on the day of discharge is 2.08 and has been in the therapeutic range for the past 4 days. 4. Insomnia. She may not need to continued trazodone when she is back in her own home. Greater than 30 minutes was spent on this discharge, including coordination of care, medication recon ciliation, and counseling patient and her . /[id number]/MODL
== END 2017-11-20 13:47 | disposition home health service (06) | DRG 561 ==
LOC: BREH 12:55
PROVIDERS: ADMIT Internal Medicine; ATTEND Internal Medicine
DX: Z47.89 Encounter for other orthopedic aftercare (principal); S72.142D Displaced intertrochanteric fracture of left femur, subsequent encounter for closed fracture with routine healing; W18.39XD Other fall on same level, subsequent encounter; Y92.9 Unspecified place or not applicable; Y99.8 Other external cause status; D69.6 Thrombocytopenia, unspecified; D64.89 Other specified anemias; R09.02 Hypoxemia; Z99.81 Dependence on supplemental oxygen; I50.9 Heart failure, unspecified; I08.3 Combined rheumatic disorders of mitral, aortic and tricuspid valves; Z86.711 Personal history of pulmonary embolism; Z79.01 Long term (current) use of anticoagulants; Z77.22 Contact with and (suspected) exposure to environmental tobacco smoke (acute) (chronic); I48.91 Unspecified atrial fibrillation; I11.0 Hypertensive heart disease with heart failure; E78.5 Hyperlipidemia, unspecified; E03.9 Hypothyroidism, unspecified; H40.9 Unspecified glaucoma; Z96.651 Presence of right artificial knee joint; G47.00 Insomnia, unspecified
CPT/HCPCS: 86022-90; 97110-GO; 97110-GP; 97116-GP; 97162-GP; 97166-GO; 97530-GO; 97530-GP; 97535-GO; Q9967

== ENCOUNTER → 2018-01-22 | Outpatient (CLI) | payer OTHER, MEDICARE | LOC: FIMAGING 10:21 | PROVIDERS: ATTEND Family Medicine | DX: Z13.820 Encounter for screening for osteoporosis (principal); M85.89 Other specified disorders of bone density and structure, multiple sites ==

== ENCOUNTER → 2018-06-12 | Outpatient (CLI) | payer OTHER, MEDICARE | LOC: FIMAGING 08:43 | PROVIDERS: ATTEND Family Medicine | DX: Z12.31 Encounter for screening mammogram for malignant neoplasm of breast (principal); Z85.3 Personal history of malignant neoplasm of breast ==